=== PATIENT | male | born 1960 | race Two or more races ===

== ENCOUNTER 2025-05-13 18:01 | Inpatient (IN) | payer SELFPAY ==
[~2025-05-13] VITALS: Ht 170.2 cm; Wt 75.5 kg
[2025-05-13 18:57] VITALS: BP 153/96; PULSE 98; RESP 18; TEMP 97.8; O2SAT 98
[2025-05-13] MEDS: CLINDAMYCIN 900MG IV 50 ML IV ONE (19:00)
[2025-05-13] MEDS: VANCOMYCIN 1GM/250ML KIT 250 ML IV ONE (19:00)
[2025-05-13] MEDS: SODIUM CHLORIDE 0.9% 1,000 ML IV ONE ×2 (19:00→20:30)
[2025-05-13 19:26] LABS: Hematocrit 38.9 % (41.0-53.0); Hemoglobin 12.9 g/dL (13.5-17.5); Mean Corpuscular Hemoglobin 29.4 pg (28.0-32.0); Mean Corpuscular Volume 88.5 fL (80.0-100.0); Nucleated Red Blood Cells % 0.1 %
--- NOTE | 2025-05-13 19:40 | DVH ---
CHEST RADIOGRAPH Indication: Suspected Sepsis Technique: Single frontal view of the chest was obtained Comparison: None FINDINGS: Lines and Tubes: None Lungs: Linear atelectasis or scarring in the right mid lung field. Pleura: No effusion. No pneumothorax. Cardiomediastinal contours: Unremarkable Bones: No acute osseous abnormality. IMPRESSION: 1. No acute cardiopulmonary disease.
[2025-05-13 19:45] LABS: Alanine Aminotransferase 15 U/L (7-40); Anion Gap 14 (5-15); BUN/Creatinine Ratio 13.1 (10.0-20.0); Blood Urea Nitrogen 11 mg/dL (9-23); Carbon Dioxide 24 mmol/L (20-31); Potassium 3.7 mmol/L (3.5-5.1)
[2025-05-13 19:46] LABS: Albumin 3.8 g/dL (3.2-4.8); Bilirubin, Total 0.5 mg/dL (0.2-1.0)
[2025-05-13 19:48] LABS: Alkaline Phosphatase 158 U/L (46-116); Calcium 8.6 mg/dL (8.7-10.4); Chloride 96 mmol/L (98-107); Glucose 289 mg/dL (74-106); Sodium 134 mmol/L (136-145); Total Protein 8.2 g/dL (5.7-8.2)
--- NOTE | 2025-05-13 20:11 | DVH ---
EXAMINATION: CT CT L FOOT WO CONTRAST INDICATION: Foot infection, necrotizing fasciitis COMPARISON: None TECHNIQUE: CT of the rightleft foot was performed without contrast. Volume transverse images were obt ained reconstructed in multiple planes using bone and soft tissue algorithms. CTDIvol: 8 mGy. DLP: 174 mGy cm. FINDINGS: Significant soft tissue thickening along the dorsal midfoot and forefoot. No obvious fluid collectio n, evidence of soft tissue gas or edema along the deep aspect of intrinsic foot muscles. No visualize d ulcer. Dense vascular calcifications. No evidence of acute fracture , periostitis or osseous erosion. Joints appear normally aligned with m ild osteoarthrosis of the forefoot. IMPRESSION: Extensive dorsal soft tissue thickening throughout the midfoot and forefoot. No obvious fluid collect ion or deep space infection, although CT is neither sensitive nor specific.
--- NOTE | 2025-05-13 20:11 | DVH ---
Procedure: US LT Lower DVT Study Date and Requested Time: 05/13/2025 07:25 PM History: reddness, swelling Comparison: None Technique: Multiple high resolution lopez-scale images with and without compression obtained of the le ft lower extremity veins, including the common femoral vein, deep femoral vein, proximal mid and dist al superficial femoral vein, and popliteal vein. Additional limited images of the greater saphenous v ein also obtained. Augmentation performed as indicated. Color and spectral doppler flow images obtain ed as indicated. Findings: No visible intraluminal venous thrombus. No evidence of incompressibility or abnormal color or spectr al Doppler flow visualized in the left lower extremity veins including, the common femoral vein, deep femoral vein, proximal mid and distal superficial femoral vein, and popliteal vein. Greater saphenou s vein grossly unremarkable. Impression: No sonographic evidence of left lower extremity deep venous thrombosis.
--- NOTE | 2025-05-13 20:14 | DVH ---
BILATERAL LOWER EXTREMITY ARTERIAL DUPLEX ULTRASOUND STUDY: REASON FOR EXAM: r/o ischemia, PAD. Left lower extremity wound x1 week. TECHNIQUE: The full lengths of the arterial segments were evaluated with color-flow Doppler ultrasoun d. Suspected abnormalities were evaluated with lopez scale ultrasound. Terminal [employer] spectral Doppler waveforms, with velocity measurements were obtained. Spectral waveforms with velocity measurements w ere obtained 2 to 4 cm central to any areas of significant stenosis. Common femoral, superficial femo ral, popliteal, posterior tibial, anterior tibial, and dorsal pedal arteries were evaluated. FINDINGS: Right: There is diffuse atherosclerotic plaque throughout the right lower extremity. The common femor al artery waveform is multiphasic with a brisk upstroke. The superficial femoral and popliteal arteri es are patent with multiphasic waveforms. There is monophasic flow in the posterior tibial artery. Th ere is multi phasic flow in the anterior tibial and dorsal pedal arteries. Left: There is diffuse atherosclerotic plaque throughout the left lower extremity. The common femora l artery waveform is multiphasic with a brisk upstroke. The superficial femoral and popliteal arterie s are patent with multiphasic waveforms. There is monophasic flow in the posterior tibial, anterior t ibial, and dorsal pedal arteries. Incidental note is made of a 3.1 x 0.8 cm morphologically normal lymph node in the left groin, likely reactive. IMPRESSION: Diffuse atherosclerotic disease. No evidence of hemodynamically significant focal stenosis or occlusi on.
[2025-05-13] MEDS: PIPERACILLIN-TAZOB 3.375GM 100 ML IV ONE (20:55)
[2025-05-13] MEDS: MORPHINE SULFATE INJ 2 MG/ml SYRG IV ONE (21:06)
[2025-05-14] VITALS (11 sets, daily range): BP systolic 101–148; BP diastolic 62–80; PULSE 73–108; RESP 16–19; TEMP 97.9–100; O2SAT 92–97
[2025-05-14] MEDS ORDERED: DEXTROSE (50%) 50ML SYRG IV PRN (00:45)
[2025-05-14] MEDS: SODIUM CHLORIDE 0.9% 1,000 ML IV ONE (00:45)
[2025-05-14] MEDS ORDERED: VANCOMYCIN PER PHARMACY 0 MG IV SCH (00:45)
[2025-05-14] MEDS: LOSARTAN POTASSIUM 25 MG TAB PO ONE (00:45)
[2025-05-14] MEDS: VANCOMYCIN 1GM/250ML KIT 250 ML IV ONE ×2 (02:00→06:57)
[2025-05-14] MEDS: CEFEPIME 1GM/50ML 50 ML IV ONE (03:21)
[2025-05-14] MEDS: HYDROmorphone HCL 2 MG/ML VL/or syr IV PRN (03:46)
[2025-05-14] MEDS: CLINDAMYCIN 600MG IV 50 ML IV SCH (05:43)
[2025-05-14] MEDS: SODIUM CHLOR 0.9% PF (SALINE LOCK) 10ML VIAL/SYR IV SCH (05:45)
[2025-05-14] MEDS: ACCU-CHEK COMFORT CURVE STRIP VI SCH (05:46)
[2025-05-14] MEDS: InsuLIN REG 1unit/0.01ml Soln (100units/ml) SC SCH (05:53)
[2025-05-14] MEDS ORDERED: CEFEPIME 1GM/50ML 50 ML IV SCH (06:00)
[2025-05-14 06:07] LABS: Hematocrit 33.2 % (41.0-53.0); Hemoglobin 11.1 g/dL (13.5-17.5); Mean Corpuscular Hemoglobin 29.4 pg (28.0-32.0); Mean Corpuscular Volume 87.9 fL (80.0-100.0); Nucleated Red Blood Cells % 0.0 %
[2025-05-14 06:20] LABS: INR 1.18 (0.9-1.15); Partial Thromboplastin Time 34.9 SEC (24.5-34.5); Prothrombin Time 12.3 sec (9.3-11.8)
[2025-05-14 06:24] LABS: Alanine Aminotransferase 12 U/L (7-40); Alkaline Phosphatase 107 U/L (46-116); Anion Gap 11 (5-15); BUN/Creatinine Ratio 14.1 (10.0-20.0); Blood Urea Nitrogen 10 mg/dL (9-23); Carbon Dioxide 24 mmol/L (20-31); Chloride 102 mmol/L (98-107); Magnesium 2.1 mg/dL (1.6-2.6); Sodium 137 mmol/L (136-145); Total Protein 7.0 g/dL (5.7-8.2)
[2025-05-14 06:25] LABS: Albumin 3.2 g/dL (3.2-4.8); Bilirubin, Direct 0.2 mg/dL (<0.3); Bilirubin, Total 0.5 mg/dL (0.2-1.0)
[2025-05-14 06:26] LABS: Calcium 7.8 mg/dL (8.7-10.4); Glucose 301 mg/dL (74-106); Potassium 3.4 mmol/L (3.5-5.1)
[2025-05-14] MEDS: POTASSIUM EFFERVESENT TAB 25 MEQ PO ONE (09:48)
[2025-05-14] MEDS: CEFEPIME 1GM/50ML 50 ML IV SCH (09:49)
[2025-05-14] MEDS: ENOXAPARIN SOD 40 MG/0.4 ML SYRINGE SC SCH (09:50)
[2025-05-14] MEDS: LOSARTAN POTASSIUM 25 MG TAB PO SCH (09:51)
[2025-05-14] MEDS: INSULIN LANTUS (GLARGINE) 1 /0.01ml (100units/ml) SC SCH (10:05)
--- NOTE | 2025-05-14 10:12 | DVH ---
CLINICAL INDICATION: r/o foot osteomyelitis COMPARISON: CT CT L FOOT WO CONTRAST on DOS: 05/13/25. TECHNIQUE: Multiplanar, multisequence MRI of the left foot was performed without intravenous contrast . Contrast: None. INTERPRETATION: Bones: No evidence of acute fracture. There is no marrow replacing lesion. Joints: There is mild 1st MTP arthrosis. Mild midfoot arthrosis noted. No significant joint effusion s. Soft tissues: There is marked subcutaneous edema in the dorsal forefoot especially in 1st and 2nd web space, where there appears to be fluid in these locations. There is edema in the intrinsic muscles of the foot which may reflect myositis or denervation. IMPRESSION: 1. Diffuse soft tissue edema in the forefoot especially in between the 1st and 2nd webspace where the re is fluid. Findings are concerning for cellulitis with the presence of abscess not excluded. 2. No MR evidence of osteomyelitis in the left foot.
--- NOTE | 2025-05-14 11:24 | ED.PDOC ---
Musculoskeletal HPI Comments 64 year old male came to ER for left lower extremity wound. Patient is diabetic and has not been taking any medications (metformin) for over 2 years. 9 days ago, he noted a reddish spot on the surface of his left foot, progressively worsening/ enlarging. 3 days ago, blackish spots started to appear along with weaong wounds. Denies any fever or recent trauma to the left foot. REVIEW OF SYSTEMS: General: No fever, no chills, or fatigue HEENT: No sore throat, no earache, no congestion, no neck pain. Cardiac: No chest pain. No palpitations. Lungs: No shortness of breath, no cough. GI: No nausea, no vomiting, no diarrhea, no constipation, no abdominal pain : No dysuria, frequency, or urgency. No hematuria. Musculoskeletal: No joint pain , no joint swelling, no extremity edema. Skin: No rash, no itching., wound left foot Neuro: No headache, no dizziness, no weakness EXAM: General: Awake, alert and oriented. No acute distress. Skin: Skin in warm, dry and intact. Appropriate color for ethnicity. HEENT: The head is normocephalic and atraumatic. Conjunctivae are clear without exudates or hemorrhage. Sclera is non-icteric. EOM are intact. No signs of nystagmus. Eyelids are normal in appearance without swelling or lesions. Oral mucosa is pink and moist Neck: The neck is supple with normal range of motion. No JVD. Cardiac: Heart rate and rhythm are normal. No murmurs, gallops, or rubs are auscultated. Respiratory: No signs of respiratory distress. Lung sounds are clear in all lobes bilaterally without rales, rhonchi, or wheezes. Abdominal: Abdomen is soft, non-tender without distention. Bowel sounds are present and normoactive in all four quadrants. Extremities: LEFT FOOT ERYTHEMATOUS, EDEMATOUS WITH PURULENT DRAINAGE AND LARGE AREAS OF NECROSIS. SENSATION INTACT. Neurological: The patient is awake, alert and oriented to person, place, and time with normal speech. Speech is clear. There is no facial asymmetry. Psychiatric: Appropriate mood and affect. Good judgement and insight Chief Complaint: Lower Extremity Time Seen by MD: 18:54 Reviewed Notes: Nurses Notes Allergies: Coded Allergies: NO KNOWN ALLERGIES (Unverified , 05/13/25) Home Meds Active Scripts Doxycycline (Monohydrate) (Doxycycline) 100 Mg Cap, 100 MG PO BID for 90 Days, #90 CAP Prov:RAFAEL ARANDA RESIDENT 05/23/25 Tramadol HCl (Tramadol HCl) 50 Mg Tab, 50 MG PO Q8HP PRN for 10 Days, #30 TAB Prov:KATHRIN BOLDEN MD 05/23/25 Metformin Hydrochloride (METFORMIN HCL ER) 1,000 Mg Tab, 1 TAB PO BID for 30 Days, #60 TAB 2 Refills Prov:GAILDUSTY FORDRA RESIDENT 05/21/25 Insulin Glargine (Lantus Solostar) 100 Unit/Ml Inj, 20 UNIT SC DAILY for 30 Days, #6 INJ 2 Refills Please take 20 units Lantus at bedtime Prov:GAILMINDYJANIDIEGO RESIDENT 05/21/25 Losartan Potassium (Losartan Potassium) 25 Mg Tab, 1 TAB PO DAILY for 30 Days, #30 TAB 2 Refills Prov[facility] 05/21/25 Atorvastatin Calcium (ATORVASTATIN CALCIUM) 80 Mg Tab, 1 TAB PO DAILY for 30 Days, #30 TAB 2 Refills Prov:[facility] 05/21/25 Information Source: Patient Mode of Arrival: Ambulatory Location: Left Extremity Location: Foot Timing: Days Past Medical History PAST MEDICAL HISTORY: DM Surgical History: Denies all surgeries Family History Family History: Reviewed,noncontributory to illness Social History Smoker: Non-Smoker Alcohol: Denies ETOH Use Drugs: Denies Drug Use Lives In: Home Was a procedure done? Was a procedure done?: No Differential Diagnosis EXT Differential Diagnosis: Cellulitis, Deep Vein Thrombosis, Septic X-Ray, Labs, Meds, VS Vital Signs Date Time Temp Pulse Resp B/P (MAP) Pulse Ox O2 Delivery O2 Flow Rate FiO2 05/13/25 21:06 95 19 148/82 05/13/25 18:57 97.8 98 18 153/96 (115) 98 97.8 05/13/25 18:05 99.7 109 18 144/63 96 99.7 Lab Test 05/13/25 19:59 05/13/25 19:11 Range/Units Lactic Acid Level 1.9 0.4-2.0 mmol/L White Blood Count 12.0 H 4.4-10.8 10^3/uL Red Blood Count 4.39 L 4.5-5.90 10^6/uL Hemoglobin 12.9 L 13.5-17.5 g/dL Hematocrit 38.9 L 41.0-53.0 % Mean Corpuscular Volume 88.5 80.0-100.0 fL Mean Corpuscular Hemoglobin 29.4 28.0-32.0 pg Mean Corpuscular Hemoglobin Concent 33.3 32.0-36.0 g/dL Red Cell Distribution Width 13.8 11.8-14.3 % Platelet Count 409 140-450 10^3/uL Mean Platelet Volume 8.6 6.9-10.8 fL Neutrophils (%) (Auto) 76.2 37.0-80.0 % Lymphocytes (%) (Auto) 14.5 10.0-50.0 % Monocytes (%) (Auto) 8.2 0.0-12.0 % Eosinophils (%) (Auto) 0.4 0.0-7.0 % Basophils (%) (Auto) 0.7 0.0-2.0 % Neutrophils # (Auto) 9.1 H 1.6-8.6 10 ^3/uL Lymphocytes # (Auto) 1.7 0.4-5.4 10 ^3/uL Monocytes # (Auto) 1.0 0-1.3 10 ^3/uL Eosinophils # (Auto) 0.1 0-0.8 10 ^3/uL Basophils # (Auto) 0.1 0-0.2 10 ^3/uL Nucleated Red Blood Cells 0.1 % Sodium Level 134 L 136-145 mmol/L Potassium Level 3.7 3.5-5.1 mmol/L Chloride Level 96 L 98-107 mmol/L Carbon Dioxide Level 24 20-31 mmol/L Anion Gap 14 5-15 Blood Urea Nitrogen 11 9-23 mg/dL Creatinine 0.84 0.700-1.30 mg/dL Glomerular Filtration Rate Calc 98 >90 mL/min BUN/Creatinine Ratio 13.1 10.0-20.0 Serum Glucose 289 H 74-106 mg/dL Calcium Level 8.6 L 8.7-10.4 mg/dL Total Bilirubin 0.5 0.2-1.0 mg/dL Aspartate Amino Transferase (AST) 15 13-40 U/L Alanine Aminotransferase (ALT) 15 7-40 U/L Alkaline Phosphatase 158 H 46-116 U/L Total Protein 8.2 5.7-8.2 g/dL Albumin 3.8 3.2-4.8 g/dL Microbiology Date/Time Source Procedure Growth Status 05/13/25 19:59 Blood Blood Culture - Final NO GROWTH AFTER 5 DAYS OF INCUBATION. Complete 05/13/25 19:11 Blood Blood Culture - Final NO GROWTH AFTER 5 DAYS OF INCUBATION. Complete ORDERING PHYSICIAN: JAKE ARTIS MD PROCEDURE(s): LFTCT - CT L FOOT WO CONTRAST REASON: Foot infection, ? necrotizing fasciitis ORDER NUMBER(s): [id number], ACCESSION NUMBER(s): [id number] EXAMINATION: CT CT L FOOT WO CONTRAST INDICATION: Foot infection, necrotizing fasciitis COMPARISON: None TECHNIQUE: CT of the rightleft foot was performed without contrast. Volume transverse images were obtained reconstructed in multiple planes using bone and soft tissue algorithms. CTDIvol: 8 mGy. DLP: 174 mGy cm. FINDINGS: Significant soft tissue thickening along the dorsal midfoot and forefoot. No obvious fluid collection, evidence of soft tissue gas or edema along the deep aspect of intrinsic foot muscles. No visualized ulcer. Dense vascular calcifications. No evidence of acute fracture , periostitis or osseous erosion. Joints appear normally aligned with mild osteoarthrosis of the forefoot. IMPRESSION: Extensive dorsal soft tissue thickening throughout the midfoot and forefoot. No obvious fluid collection or deep space infection, although CT is neither sensitive nor specific. RING PHYSICIAN: JAKE ARTIS MD PROCEDURE(s): LLDVT - LT Lower DVT REASON: reddness, swelling ORDER NUMBER(s): [id number], ACCESSION NUMBER(s): [id number] Procedure: US LT Lower DVT Study Date and Requested Time: 05/13/2025 07:25 PM History: reddness, swelling Comparison: None Technique: Multiple high resolution lopez-scale images with and without compression obtained of the left lower extremity veins, including the common femoral vein, deep femoral vein, proximal mid and distal superficial femoral vein, and popliteal vein. Additional limited images of the greater saphenous vein also obtained. Augmentation performed as indicated. Color and spectral doppler flow images obtained as indicated. Findings: No visible intraluminal venous thrombus. No evidence of incompressibility or abnormal color or spectral Doppler flow visualized in the left lower extremity veins including, the common femoral vein, deep femoral vein, proximal mid and distal superficial femoral vein, and popliteal vein. Greater saphenous vein grossly unremarkable. Impression: No sonographic evidence of left lower extremity deep venous thrombosis. RING PHYSICIAN: JAEK ARTIS MD PROCEDURE(s): BLEAD - BiLat Low Ext Art Duplex REASON: r/o ischemia, PAD ORDER NUMBER(s): [id number], ACCESSION NUMBER(s): [id number] BILATERAL LOWER EXTREMITY ARTERIAL DUPLEX ULTRASOUND STUDY: REASON FOR EXAM: r/o ischemia, PAD. Left lower extremity wound x1 week. TECHNIQUE: The full lengths of the arterial segments were evaluated with color- flow Doppler ultrasound. Suspected abnormalities were evaluated with lopez scale ultrasound. Supervisor [employer] spectral Doppler waveforms, with velocity measurements were obtained. Spectral waveforms with velocity measurements were obtained 2 to 4 cm central to any areas of significant stenosis. Common femoral, superficial femoral, popliteal, posterior tibial, anterior tibial, and dorsal pedal arteries were evaluated. FINDINGS: Right: There is diffuse atherosclerotic plaque throughout the right lower extremity. The common femoral artery waveform is multiphasic with a brisk upstroke. The superficial femoral and popliteal arteries are patent with multiphasic waveforms. There is monophasic flow in the posterior tibial artery. There is multi phasic flow in the anterior tibial and dorsal pedal arteries. Left: There is diffuse atherosclerotic plaque throughout the left lower extremity. The common femoral artery waveform is multiphasic with a brisk upstroke. The superficial femoral and popliteal arteries are patent with multiphasic waveforms. There is monophasic flow in the posterior tibial, anterior tibial, and dorsal pedal arteries. Incidental note is made of a 3.1 x 0.8 cm morphologically normal lymph node in the left groin, likely reactive. IMPRESSION: Diffuse atherosclerotic disease. No evidence of hemodynamically significant focal stenosis or occlusion. RING PHYSICIAN: JAKE ARTIS MD PROCEDURE(s): CXR1 - CHEST XRAY 1 VIEW REASON: Suspected Sepsis ORDER NUMBER(s): [id number], ACCESSION NUMBER(s): [id number] CHEST RADIOGRAPH Indication: Suspected Sepsis Technique: Single frontal view of the chest was obtained Comparison: None FINDINGS: Lines and Tubes: None Lungs: Linear atelectasis or scarring in the right mid lung field. Pleura: No effusion. No pneumothorax. Cardiomediastinal contours: Unremarkable Bones: No acute osseous abnormality. IMPRESSION: 1. No acute cardiopulmonary disease. Time of 1ST Reevaluation: 18:50 Reevaluation 1ST: Unchanged Patient Education/Counseling: Other Family Education/Counseling: Other Sepsis Sepsis Reasesment Focused Exam Orders: Departure 1 Departure Time of Disposition: 22:01 Impression: Primary Impression: Diabetic foot infection Disposition: ADMITTED INPATIENT Condition: Stable e-Prescriptions Doxycycline (Monohydrate) (Doxycycline) 100 Mg Cap 100 MG PO BID for 90 Days, #90 CAP Prov: RAFAEL ARANDA 05/23/25 Tramadol HCl (Tramadol HCl) 50 Mg Tab 50 MG PO Q8HP PRN for 10 Days, #30 TAB Prov: KATHRIN BOLDEN MD 05/23/25 Metformin Hydrochloride (METFORMIN HCL ER) 1,000 Mg Tab 1 TAB PO BID for 30 Days, #60 TAB 2 Refills Prov: DIEGO JONES RESIDENT 05/21/25 Insulin Glargine (Lantus Solostar) 100 Unit/Ml Inj 20 UNIT SC DAILY for 30 Days, #6 INJ 2 Refills Please take 20 units Lantus at bedtime Prov: DIEGO JONES 05/21/25 Losartan Potassium (Losartan Potassium) 25 Mg Tab 1 TAB PO DAILY for 30 Days, #30 TAB 2 Refills Prov: DIEGO JONES 05/21/25 Atorvastatin Calcium (ATORVASTATIN CALCIUM) 80 Mg Tab 1 TAB PO DAILY for 30 Days, #30 TAB 2 Refills Prov: DIEGO JONES RESIDENT 05/21/25 Comments MDM: Antibiotics initiated in the ED. Patient admitted to hospitalist service for further treatment, evaluation and monitoring. Extensive evaluation was performed in attempt to identify or rule out: (See differential diagnosis section) The following tests were ordered, and results were reviewed by me and discussed with patient: (See diagnostic results section) The following test were independently interpreted by me: N/A I reviewed and agreed with the following test results read by other providers: N/A I reviewed the following notes from the pt's past medical encounters: N/A Additional information was gathered from interviewing the following independent historians: N/A Discussion of management or test interpretation with external physician/other qualified health inpatient care manager rn: N/A Addressed one or more chronic illnesses with severe exacerbation, progression, or side effects of treatment: Diabetes mellitus, an acute or chronic illness that poses a threat to life or bodily function: Diabetic foot infection Decision regarding hospitalization or escalation of hospital level of care: Risk and benefits of admission for further treatment of patient's condition was considered. Due to patient's current clinical condition, high risk of decline and poor outcome if discharged and need for further inpatient management and monitoring, patient will be admitted to the hospital. Drug therapy requiring intensive monitoring for toxicity: N/A Parenteral controlled substances: Morphine IV Critical Care Note Critical Care Time?: No Stability Stability form required: No I personally scribed for JAKE ARTIS MD ([email or web address]) on 05/13/25 at 18:55. Electronically submitted by Steven Velásquez ([email or web address]). I personally scribed for JAKE ARTIS MD ([email or web address]) on 05/13/25 at 22:05. Electronically submitted by Steven Velásquez (ARABlueprint [email or web address] [email or web address]). JAKE ARTIS MD May 13, 2025 18:55
--- NOTE | 2025-05-14 11:29 | DVHHPRES ---
History of Present Illness Resident Creating Document: JAIMEE BAER History of Present Illness Patient is a 64-year-old male with past medical history of T2DM, presented to [facility] ED with complaint of progressively worsening wound on the left foot. He first noticed a reddish spot on the dorsal surface of the left foot approximately 9 days ago. The lesion has more enlarged and painful, 3 days ago, developed blackish discoloration with associated weeping wounds. 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 He has also not taken any medications for an extended period. He denies fever, chills, or recent trauma to the area. No known insect bites or new footwear. No prior similar episodes. On evaluation in the ED, patient is febrile, tachycardic, and BP is148/82 mmHg. Initial labs show WBC 12.0, serum glucose 289 and ALP 158. Left foot CT shows Extensive dorsal soft tissue thickening throughout the midfoot and forefoot. The patient was started on IV antibiotics and Insulin. Patient is admitted for further evaluation and management. Endocrine: Diabetes Past Surgical History: None Family History: DM Smoke: No ALCOHOL: occassional Drugs: None Lives: with Family Review of Systems Review of Systems Eyes: No Pain, No Vision change, No Conjunctivae inflammation, No Eyelid inflammation, No Other, No Redness ENT: No Ear pain, No Ear discharge, No Nose pain, No Nose discharge, No Nose congestion, No Mouth pain, No Mouth swelling, No Throat pain, No Throat swelling, No Other Cardiovascular: No Chest Pain, No Palpitations, No Orthopnea, No Paroxysmal No Dyspnea, No Edema, No Lt Headedness, No Other Respiratory: No Cough, No Dry, No Shortness of breath, No SOB with exertion, No Wheezing, No Hemoptysis, No Pleuritic Pain, No Sputum, No Other Gastrointestinal: No Nausea, No Vomiting, No Abdominal Pain, No Diarrhea, No C onstipation, No Melena, No Hematochezia, No Other Genitourinary: No Dysuria, No Frequency, No Incontinence, No Hematuria, No Re tention, No Other Musculoskeletal: No other, No neck pain, No shoulder pain, No arm pain, No back pain, No hand pain, No leg pain, No foot pain Skin: No Rash, No Lesions, No Jaundice, No Bruising, No Other. Reddish spot in right foot, wound in left foot Allergies: Coded Allergies: NO KNOWN ALLERGIES (Unverified , 05/13/25) Exam Vital Signs Vital Signs Date Time Temp Pulse Resp B/P (MAP) Pulse Ox O2 Delivery O2 Flow Rate FiO2 05/13/25 21:06 95 19 148/82 05/13/25 18:05 99.7 96 99.7 Exam General Appearance: Cooperative. Well developed. Well nourished. NAD Head Exam: Normal inspection Neck Exam: Normal inspection. Non-tender. Normal alignment Pulmonary/Respiratory: Chest non-tender. Clear bilateral breath sounds, no crackles, no wheezing. Cardiovascular/Chest: Regular rate and rhythm. No murmurs. No JVD. Peripheral Pulses: 2+ Radial (R). 2+ Radial (L). 2+ Pedal (R). 2+ Pedal (L) Abdominal Exam: Normal bowel sounds. Soft. normal abdomen, no visible veins, Nontender. No hepatospenomegaly. No masses Ankle Exam: Negative ankle edema Lower extremities: Left foot erythematous, edematous with purulent drainage and large area of necrosis. sensation intact Neuro/Mental Status: A&O x4. Coherent. Thoughts/Psych: Normal thought pattern. Appropriate mood and affect. Good judgement and insight Skin Exam: Normal inspection. Normal color. Warm. Dry Labs/Xrays Labs Test 05/13/25 19:59 05/13/25 19:11 Range/Units Lactic Acid Level 1.9 0.4-2.0 mmol/L White Blood Count 12.0 H 4.4-10.8 10^3/uL Red Blood Count 4.39 L 4.5-5.90 10^6/uL Hemoglobin 12.9 L 13.5-17.5 g/dL Hematocrit 38.9 L 41.0-53.0 % Mean Corpuscular Volume 88.5 80.0-100.0 fL Mean Corpuscular Hemoglobin 29.4 28.0-32.0 pg Mean Corpuscular Hemoglobin Concent 33.3 32.0-36.0 g/dL Red Cell Distribution Width 13.8 11.8-14.3 % Platelet Count 409 140-450 10^3/uL Mean Platelet Volume 8.6 6.9-10.8 fL Neutrophils (%) (Auto) 76.2 37.0-80.0 % Lymphocytes (%) (Auto) 14.5 10.0-50.0 % Monocytes (%) (Auto) 8.2 0.0-12.0 % Eosinophils (%) (Auto) 0.4 0.0-7.0 % Basophils (%) (Auto) 0.7 0.0-2.0 % Neutrophils # (Auto) 9.1 H 1.6-8.6 10 ^3/uL Lymphocytes # (Auto) 1.7 0.4-5.4 10 ^3/uL Monocytes # (Auto) 1.0 0-1.3 10 ^3/uL Eosinophils # (Auto) 0.1 0-0.8 10 ^3/uL Basophils # (Auto) 0.1 0-0.2 10 ^3/uL Nucleated Red Blood Cells 0.1 % Sodium Level 134 L 136-145 mmol/L Potassium Level 3.7 3.5-5.1 mmol/L Chloride Level 96 L 98-107 mmol/L Carbon Dioxide Level 24 20-31 mmol/L Anion Gap 14 5-15 Blood Urea Nitrogen 11 9-23 mg/dL Creatinine 0.84 0.700-1.30 mg/dL Glomerular Filtration Rate Calc 98 >90 mL/min BUN/Creatinine Ratio 13.1 10.0-20.0 Serum Glucose 289 H 74-106 mg/dL Calcium Level 8.6 L 8.7-10.4 mg/dL Total Bilirubin 0.5 0.2-1.0 mg/dL Aspartate Amino Transferase (AST) 15 13-40 U/L Alanine Aminotransferase (ALT) 15 7-40 U/L Alkaline Phosphatase 158 H 46-116 U/L Total Protein 8.2 5.7-8.2 g/dL Albumin 3.8 3.2-4.8 g/dL SEPSIS Sepsis Screen Date sepsis recognized/suspect: May 13, 2025 Time Sepsis recognized/suspect: 1806 Recent Procedure: No On Antibiotic Therapy: No Respiratory Rate >20: No Heart Rate >90: Yes Temp<36 C (96.8 F) or >38.3 C: Yes SBP <90 or MAP <65 mmHG: No New Acute Mental Status Change: No Is the patient on CPAP, BIPAP,: No Physician Orders Ct L Foot Wo Contrast (05/13/25 18:48) Sodium Chloride 0.9% (05/13/25 19:00) Vital Signs Q1HR (05/13/25 18:48) Saline Lock (05/13/25 18:48) Underwriting Specialist (05/13/25 ) Rectal/Core Temps Only (05/13/25 18:48) Notify Md If Abnormal Vs (05/13/25 18:48) Blood Culture (05/13/25 18:48) Chest Xray 1 View (05/13/25 18:48) Urinalysis (05/13/25 18:48) Lt Lower Dvt (05/13/25 18:48) Bilat Low Ext Art Duplex (05/13/25 18:48) Vital Signs Date Time Temp Pulse Resp B/P (MAP) Pulse Ox O2 Delivery O2 Flow Rate FiO2 05/13/25 21:06 95 19 148/82 05/13/25 18:05 99.7 109 18 144/63 96 99.7 Laboratory Tests Test 05/13/25 19:11 05/13/25 19:59 White Blood Count 12.0 10^3/uL (4.4-10.8) H Lactic Acid Level 1.9 mmol/L (0.4-2.0) Medications Medications Dose Ordered Sig/Freder[place] Route Start Time Stop Time Status Last Admin Dose Admin Morphine Sulfate 2 mg ONCE ONCE IV 05/13/25 21:00 05/13/25 21:01 DC 05/13/25 21:06 2 MG Piperacillin Sod/ Tazobactam Sod 100 ml @ 100 mls/hr ONCE ONCE IV 05/13/25 19:00 05/13/25 19:59 DC 05/13/25 20:55 100 MLS/HR Sodium Chloride 1,000 ml @ 1,000 mls/hr Q1H ONCE IV 05/13/25 19:00 05/13/25 19:59 DC 05/13/25 20:30 1,000 MLS/HR Assessment/Plan Assessment/Plan Sepsis secondary to diabetic foot wound Type 2 diabetes mellitus with hyperglycemia, uncontrolled Rule out osteomyelitis MRI left foot ordered CT left foot : Extensive dorsal soft tissue thickening throughout the midfoot and forefoot. No obvious fluid collection or deep space infection. Wound culture Wound consult Podiatry consult IV NS 1,000 MLS/HR Vancomycin IV per pharmacy Cefepime 1GM/50ML IV q8h Clindamycin IV q8h pain management with [place] 1 TAB PO q4h and Dilaudid 0.5 MG IV q4h prn Moderate Insulin SS SC q6h UA and UDS Lactic acid Magnesium Hepatic panel ESR CRP Hypertension Losartan 25 MG PO daily Ruled out DVT Extremity venous sturdy: No sonographic evidence of left lower extremity deep venous thrombosis. Duplex Scan lower extremity artery: Diffuse atherosclerotic disease. No evidence of hemodynamically significant focal stenosis or occlusion. Diet: Cardiac Goals of care: Full code, discussed for >30 minutes on 05/13/25 Plan discussed with patient Plan discussed with Dr. Steen Plan discussed with: Patient, Spouse Date of Service: May 14, 2025 Billing Provider: VIDAL STEEN Common Visit Codes: [id number] INP/OBS CARE (HIGH) Secondary Visit Codes: [id number] CARE PLAN 30 MINUTES JAIMEE BAER RESIDENT May 13, 2025 23:46
--- NOTE | 2025-05-14 11:43 | DVHPNRES ---
Progress Note Date Seen: May 14, 2025 Resident Creating Document: RUBY EDWARD RESIDENT Has the PT tested + for MRSA If YES, has PT been informed?: No Medical Necessity Reason Pt with a Central, PICC or Fol: No Subjective Review of Systems Mr. Steve Canas, is a 64-year-old male, with past medical history of recently diagnosed HTN and DM type 2. The patient presented to [facility] ED with a chief complaint of 9 days of progressively worsening wound localized on the dorsum of left foot, associated with 10/10 burning/stabbing like pain, that irradiates up toward the left leg that worsen with walking and does not has alleviating factors. The left foot wound is associated with edema, yellowish foul smell discharge, erythema and warmth that extends to up to the middle part of the left leg. The patient reports 3 days prior the visit to the ED he start noticing a black eschar over the wound, and he had subjective fever, chills and malaise, this prompted his visit to the ED. On further questioning the patient reports he was newly diagnosed with DM2 and he is not taking any medication. 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 He denies recent trauma to the area, insect bites or new footwear. No prior similar episodes. On evaluation in the ED, patient is febrile, tachycardic, and BP is148/82 mmHg. Initial labs show WBC 12.0, serum glucose 289 and ALP 158. Left foot CT shows Extensive dorsal soft tissue thickening throughout the midfoot and forefoot. The patient was started on IV antibiotics and Insulin. Patient was admitted for further evaluation and management. Endocrine: Diabetes Past Surgical History: None Family History: DM Smoke: No ALCOHOL: occasional Drugs: None Lives: with [facility] course: On 05/14/25 the patient was evaluated and examined at bedside. The VS, labs and chart was reviewed. The patient reports he has chills, his left foot patient is better after analgesia 7/10. Bilateral artery studies showed: Diffuse atherosclerotic disease. No evidence of hemodynamically significant focal stenosis or occlusion. Bilateral leg doppler is negative for DVT. CT of the left leg showed: Extensive dorsal soft tissue thickening throughout the midfoot and forefoot. No obvious fluid collection or deep space infection, although CT is neither sensitive nor specific. MRI of the left foot showed:Diffuse soft tissue edema in the forefoot especially in between the 1st and 2nd webspace where there is fluid. Findings are concerning for cellulitis with the presence of abscess not excluded. No MR evidence of osteomyelitis in the left foot. Wound and blood cultures were ordered. The patient is receiving IV antibiotics: ceftriaxone and vancomycin. Podiatry and wound consult were placed. We will continue following this patient's progress. Review of Systems General: fever, chills, malaise. Eyes: No Pain, No Vision change, No Conjunctivae inflammation, No Eyelid inflammation, No Other, No Redness ENT: No Ear pain, No Ear discharge, No Nose pain, No Nose discharge, No Nose congestion, No Mouth pain, No Mouth swelling, No Throat pain, No Throat swelling, No Other Cardiovascular: No Chest Pain, No Palpitations, No Orthopnea, No Paroxysmal No Dyspnea, No Edema, No Lt Headedness, No Other Respiratory: No Cough, No Dry, No Shortness of breath, No SOB with exertion, No Wheezing, No Hemoptysis, No Pleuritic Pain, No Sputum, No Other Gastrointestinal: No Nausea, No Vomiting, No Abdominal Pain, No Diarrhea, No Constipation, No Melena, No Hematochezia, No Other Genitourinary: No Dysuria, No Frequency, No Incontinence, No Hematuria, No Retention, No Other Musculoskeletal: No other, No neck pain, No shoulder pain, No arm pain, No back pain, No hand pain, No leg pain, No foot pain Skin: No Rash, No Lesions, No Jaundice, No Bruising, No Other. Wound on the left foot dorsum. Coded Allergies: NO KNOWN ALLERGIES (Unverified , 05/13/25) Objective vital signs Vital Sign Date Time Temp Pulse Resp B/P (MAP) Pulse Ox O2 Delivery O2 Flow Rate FiO2 05/14/25 05:00 97.9 83 19 116/80 (92) 92 97.9 05/14/25 02:40 Room Air* 0 21 Total Intake and Output 05/13/25 05/13/25 05/14/25 15:00 23:00 07:00 Intake Total 300 ml Balance 300 ml medications Current Medications Medications Dose Ordered Sig/Frederick Route Start Time Stop Time Status Last Admin Dose Admin Sodium Chloride 10 ml Q8HR IV 05/14/25 06:00 05/14/25 05:45 10 ML Acetaminophen/ Hydrocodone Bitart 1 tab Q4HP PRN PO 05/14/25 00:45 Enoxaparin Sodium 40 mg DAILY SC 05/14/25 10:00 Vancomycin HCl 0 ml @ 0 mls/hr PER PHARMACY IV 05/14/25 00:45 Losartan Potassium 25 mg DAILY PO 05/14/25 10:00 Hydromorphone HCl 0.5 mg Q4HPRN PRN IV 05/14/25 00:45 05/14/25 03:46 0.5 MG Diagnostic Test (Pha) 1 strip Q6HR 05/14/25 06:00 05/14/25 05:46 1 STRIP Insulin Human Regular Q6HR SC 05/14/25 06:00 05/14/25 05:53 12 UNITS Dextrose 50 ml UD PRN IV 05/14/25 00:45 Cefepime HCl 50 ml @ 12.5 mls/hr Q8H IV 05/14/25 10:00 Insulin Glargine 15 units DAILY@1000 SC 05/14/25 10:00 Atorvastatin Calcium 80 mg HS PO 05/14/25 22:00 Vancomycin HCl 250 ml @ 200 mls/hr Q12H IV 05/14/25 17:00 Examination General Appearance: Cooperative. Well developed. Well nourished. NAD Head Exam: Normal inspection Neck Exam: Normal inspection. Non-tender. Normal alignment Pulmonary/Respiratory: Chest non-tender. Clear bilateral breath sounds, no crackles, no wheezing. Cardiovascular/Chest: Regular rate and rhythm. No murmurs. No JVD. Peripheral Pulses: 2+ Radial (R). 2+ Radial (L). 2+ Pedal (R). 2+ Pedal (L) Abdominal Exam: Normal bowel sounds. Soft. normal abdomen, no visible veins, Nontender. No hepatospenomegaly. No masses Ankle Exam: Negative ankle edema Lower extremities: Left foot: has erythema, edema, with purulent yellowish drainage and large black area of necrosis. Sensation preserved, popliteal and malleolus pulses are present, capillary refill<2 sec Right lower extremity: ankle petechiae, No edema or erythema. Neuro/Mental Status: A&O x3. Coherent. Thoughts/Psych: Normal thought pattern. Appropriate mood and affect. Skin Exam: as described above. laboratory and microbiology Laboratory Tests 10/31/25 05:24 Test 05/14/25 05:24 Range/Units Serum Glucose 301 H 74-106 mg/dL Problem List/Assessment/Plan Problem List/Assessment/Plan #Sepsis secondary to acute diabetic left foot acute cellulitis #Osteomyelitis was ruled out MRI left foot ordered: Diffuse soft tissue edema in the forefoot especially in between the 1st and 2nd webspace where there is fluid. Findings are concerning for cellulitis with the presence of abscess not excluded. No MR evidence of osteomyelitis in the left foot. CT left foot : Extensive dorsal soft tissue thickening throughout the midfoot and forefoot. No obvious fluid collection or deep space infection. Wound culture Wound consult Podiatry consult IV NS 1,000 MLS/HR Vancomycin IV per pharmacy Cefepime 1GM/50ML IV q8h D/C Clindamycin IV q8h pain management with [place] 1 TAB PO q4h and Dilaudid 0.5 MG IV q4h prn Moderate Insulin SS SC q6h UA and UDS Lactic acid Magnesium Hepatic panel ESR CRP #Type 2 diabetes mellitus with hyperglycemia, uncontrolled HbA1: 12.4% Moderate Insulin SS SC q6h #Hypertensive heart disease with systolic/diastolic failure Losartan 25 MG PO daily #Ruled out DVT Extremity venous sturdy: No sonographic evidence of left lower extremity deep venous thrombosis. Duplex Scan lower extremity artery: Diffuse atherosclerotic disease. No evidence of hemodynamically significant focal stenosis or occlusion. #Hypokalemia K: 3.4 Replenish DVT prophylaxis Diet: Cardiac diet and low carbohydrate diet Goals of care discussed with the patient for more than 35 minutes: Code Status: Full code PCP: No established, the patient will follow up with D/C clinic Case discussed with Dr. Palacios Social consult was placed today to try to contact patient's family. Plan discussed with: Patient My Orders My Orders Orders - RUBY EDWARD Procedure Category Date Status Time Atorvastatin (Lipitor) PHA 05/14/25 In Process 22:00 Wound Culture W/ Gs JESUSITA 05/14/25 Logged 08:35 Date of Service: May 14, 2025 Billing Provider: YOBANY PALACIOS MD Common Visit Codes: [id number] INP/OBS CARE(HIGH) RUBY EDWARD May 14, 2025 10:22 YOBANY PALACIOS MD May 14, 2025 22:12
--- NOTE | 2025-05-14 11:55 | DVHCONRES ---
Date Seen: May 14, 2025 Reason for Consultation Left foot wound History of Present Illness Patient is a 64-year-old male with past medical history of T2DM, presented to [facility] ED with complaint of progressively worsening wound on the left foot. He first noticed a reddish spot on the dorsal surface of the left foot approximately 9 days ago. The lesion has more enlarged and painful, 3 days ago, developed blackish discoloration with associated weeping wounds. 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 He has also not taken any medications for an extended period. He denies fever, chills, or recent trauma to the area. No known insect bites or new footwear. No prior similar episodes. On evaluation in the ED, patient is febrile, tachycardic, and BP is148/82 mmHg. Initial labs show WBC 12.0, serum glucose 289 and ALP 158. Left foot CT shows Extensive dorsal soft tissue thickening throughout the midfoot and forefoot. The patient was started on IV antibiotics and Insulin. Patient is admitted for further evaluation and management. Past Medical History see H&P Past Surgical History see H&P Family History: Diabetes mellitus G8 MOTHER G8 FATHER G8 BROTHER G8 SISTER Allergies: Coded Allergies: NO KNOWN ALLERGIES (Unverified , 05/13/25) Home Meds No Active Prescriptions or Reported Meds Current Medications Current Medications Medications (Trade) Dose Ordered Sig/Freder[place] Route PRN Reason Start Time Stop Time Status Last Admin Sodium Chloride (Saline Lock Ns) 10 ml Q8HR IV 05/14/25 06:00 05/14/25 05:45 Acetaminophen/ Hydrocodone Bitart ([place] 5/325MG Tab) 1 tab Q4HP PRN PO MODERATE PAIN (4-6 PAIN SCALE) 05/14/25 00:45 Enoxaparin Sodium (Lovenox) 40 mg DAILY SC 05/14/25 10:00 05/14/25 09:50 Vancomycin HCl 0 ml @ 0 mls/hr PER PHARMACY IV 05/14/25 00:45 Losartan Potassium (Cozaar Tablet) 25 mg DAILY PO 05/14/25 10:00 05/14/25 09:51 Hydromorphone HCl (Dilaudid Injection) 0.5 mg Q4HPRN PRN IV SEVERE PAIN (7-10 PAIN SCALE) 05/14/25 00:45 05/14/25 03:46 Cefepime HCl 50 ml @ 12.5 mls/hr Q8HR IV 05/14/25 06:00 05/14/25 01:01 DC Clindamycin Phosphate 50 ml @ 50 mls/hr Q8HR IV 05/14/25 06:00 05/14/25 08:28 DC 05/14/25 05:43 Diagnostic Test (Pha) (Accu-Chek Comfort Curve T) 1 strip Q6HR 05/14/25 06:00 05/14/25 05:46 Insulin Human Regular (InsuLIN R) Q6HR SC 05/14/25 06:00 05/14/25 05:53 Dextrose 50 ml UD PRN IV Blood Sugar LESS THAN 60 05/14/25 00:45 Cefepime HCl 50 ml @ 12.5 mls/hr Q8H IV 05/14/25 10:00 05/14/25 09:49 Insulin Glargine (Lantus) 15 units DAILY@1000 SC 05/14/25 10:00 05/14/25 10:05 Atorvastatin Calcium (Lipitor) 80 mg HS PO 05/14/25 22:00 Vancomycin HCl 250 ml @ 200 mls/hr Q12H IV 05/14/25 17:00 Vital Signs Vital Signs Date Time Temp Pulse Resp B/P (MAP) Pulse Ox O2 Delivery O2 Flow Rate FiO2 05/14/25 09:51 148/79 05/14/25 09:00 98.4 88 18 94 98.4 05/14/25 08:10 Room Air* 0 21 Physical Exam Dermatological: Skin is dry with mild erythema and some maceration around the wound site No gross deformities noted Mild non-pitting edema present bilaterally Left dorsal foot wound with daniel necrosis Vascular: Dorsalis pedis and posterior tibial pulses are 1+ bilaterally Capillary refill is under 2 seconds Skin temperature is warm bilaterally Neurologic: Protective sensation is absent on the plantar forefoot bilaterally Monofilament testing reveals decreased sensation in multiple plantar sites Musculoskeletal: Range of motion at the ankle and MTP joints is within normal limits. Strength is 5/5 in all tested muscle groups. Gait is antalgic due to offloading of the affected limb. Labs/Diagnostic Data Labs Test 05/14/25 09:53 05/14/25 05:24 Range/Units POC Glucose 263 H 70-106 mg/dl White Blood Count 11.3 H 4.4-10.8 10^3/uL Red Blood Count 3.78 L 4.5-5.90 10^6/uL Hemoglobin 11.1 L 13.5-17.5 g/dL Hematocrit 33.2 #L 41.0-53.0 % Mean Corpuscular Volume 87.9 80.0-100.0 fL Mean Corpuscular Hemoglobin 29.4 28.0-32.0 pg Mean Corpuscular Hemoglobin Concent 33.5 32.0-36.0 g/dL Red Cell Distribution Width 13.9 11.8-14.3 % Platelet Count 326 140-450 10^3/uL Mean Platelet Volume 8.6 6.9-10.8 fL Neutrophils (%) (Auto) 72.1 37.0-80.0 % Lymphocytes (%) (Auto) 17.6 10.0-50.0 % Monocytes (%) (Auto) 9.4 0.0-12.0 % Eosinophils (%) (Auto) 0.5 0.0-7.0 % Basophils (%) (Auto) 0.4 0.0-2.0 % Neutrophils # (Auto) 8.1 1.6-8.6 10 ^3/uL Lymphocytes # (Auto) 2.0 0.4-5.4 10 ^3/uL Monocytes # (Auto) 1.1 0-1.3 10 ^3/uL Eosinophils # (Auto) 0.1 0-0.8 10 ^3/uL Basophils # (Auto) 0 0-0.2 10 ^3/uL Nucleated Red Blood Cells 0.0 % Erythrocyte Sedimentation Rate 98 H 0-20 mm/hr Prothrombin Time 12.3 H 9.3-11.8 sec Prothrombin Time INR 1.18 H 0.9-1.15 Activated Partial Thromboplast Time 34.9 H 24.5-34.5 SEC Sodium Level 137 136-145 mmol/L Potassium Level 3.4 L 3.5-5.1 mmol/L Chloride Level 102 98-107 mmol/L Carbon Dioxide Level 24 20-31 mmol/L Anion Gap 11 5-15 Blood Urea Nitrogen 10 9-23 mg/dL Creatinine 0.71 0.700-1.30 mg/dL Glomerular Filtration Rate Calc 103 >90 mL/min BUN/Creatinine Ratio 14.1 10.0-20.0 Serum Glucose 301 H 74-106 mg/dL Hemoglobin A1c 12.4 H <5.7 % A1C Lactic Acid Level 0.9 0.4-2.0 mmol/L Calcium Level 7.8 L 8.7-10.4 mg/dL Magnesium Level 2.1 1.6-2.6 mg/dL Total Bilirubin 0.5 0.2-1.0 mg/dL Direct Bilirubin 0.2 <0.3 mg/dL Aspartate Amino Transferase (AST) 13 13-40 U/L Alanine Aminotransferase (ALT) 12 7-40 U/L Alkaline Phosphatase 107 46-116 U/L C-Reactive Protein High Sensitivity 15.34 H <1.0 mg/dL Total Protein 7.0 5.7-8.2 g/dL Albumin 3.2 3.2-4.8 g/dL Problems(with codes): (1) Diabetic foot infection Plan/Recommendation ASSESSMENT: Patient is a 62 year old seen on the floor for a worsening ulcer PLAN: - The patients chart was reviewed, clinical findings were discussed with the patient, the etiologies of the conditions were discussed in detail, and a treatment plan was agreed to at this time, with both oral and written instructions provided. - reviewed advanced imaging - discussed plan is to perform an incision and drainage - take him to the OR today - we will get cultures in the OR - we will need multiple I and D's to salvage the limb - can weightbear as tolerated in postoperative shoe All questions were answered and concerns addressed to the patient's satisfaction. The patient was given the phone number to the clinic and was told how to make contact with the clinic should any concerns or questions arise. Patient understands that if any questions or concerns arise prior to the next appointment, we should be contacted immediately. FOLLOW-UP: Continue to follow while inpatient Plan discussed with: Patient Visit Coding Podiatry Date of Service if different f: May 14, 2025 Billing Provider: BRUCE GIBBS DPM Podiatry Common Visit Codes: CONSULT ONLY Podiatry Consult Codes: [id number] NEW/EST HI 80 BRUCE GIBBS DPM May 14, 2025 11:55
[2025-05-14] MEDS: BUPIVACAINE 0.5% P/F INJ 10 ML VIAL ONE (12:08)
[2025-05-14] MEDS: VANCOMYCIN HCL 1000 MG VL ONE (12:09)
[2025-05-14] MEDS: LIDOCAINE 1% HCL (LOCAL ANESTH.) INJ 20ML MDV ONE ×2 (12:27)
[2025-05-14 12:30] LABS: Urine Protein, UAD TRACE (Negative)
--- NOTE | 2025-05-14 12:38 | DVHOP2 ---
Operative Report - 2 Report Details Date: 05/14/25 Preop Diagnosis: 1. Left foot necrotizing fasciitis 2. Left foot cellulitis 3. Left foot abscess 4. Left foot diabetic infection Postop Diagnosis: Same as preop Surgeon: Bruce Gibbs MD Anesthesiologist: None Anesthesia: Local Consent: The patient was informed of the risks and benefits of the procedure. These include but are not limited to complications of anesthesia, postoperative infection, incomplete relief of symptoms, recurrence of symptoms, damage to blood vessels, nerves and tendons, deep venous thrombosis, pulmonary embolism and possible need for repeat surgery in the future. Complications: None Estimated Blood Loss: Minimal Fluids: See anesthesia Findings: Consistent with diagnosis Indications for Surgery: Worsening foot wound Name of Procedure Performed 1. Left foot I&D (09215) Procedure Details Procedure Details: PRE-PROCEDURE INFORMATION: In the pre-op holding area, the extremity to be operated on was clearly marked and the patient verified correct laterality of the marking. The patient was transferred to the OR table and placed in a supine position. A timeout was performed in which identification of the correct patient, procedure, location, and materials was done. The left foot and leg were prepped and draped in normal sterile fashion. DESCRIPTION OF PROCEDURE: Attention was directed to the left where area of fluctuance was noted. An incision was made over this area and was deepened through blunt dissection. The incision was deepened to the level of abscess and bone. Care was taken to the dissection to avoid any neurovascular and tendinous structures. The incision was deepened to the bone, and the abscess appeared to be purulent fluid consistent with pus. The cortices of the bone was then removed with rongeur an all necrotic tissue. After the abscess was drained, the area was irrigated with 3 L normal saline using cysto tubing. Deep cultures were then obtained from the wound. The area was then inspected and any areas of tracking, especially along the tendons were also drained. The wound was packed with Betadine-soaked gauze and we will need to be closed at a later date. POSTOPERATIVE INFORMATION: The patient tolerated the above noted procedure and anesthesia well and was transferred to the PACU with vital signs stable, and vascular status intact with capillary refill intact to all digits. Patient will need multiple I and D's to be able to salvage the foot. Continue IV antibiotics. Deep cultures were taken. Condition Good Disposition Still a Patient Visit Coding Podiatry Date of Service if different f: May 14, 2025 Billing Provider: BRUCE GIBBS DPM Podiatry Common Visit Codes: PROCEDURE ONLY BRUCE GIBBS DPM May 14, 2025 12:38
[2025-05-14 12:46] LABS: Cannabinoid Screen, Urine Neg (NEGATIVE); Opiate Scree,Urine Neg (NEGATIVE)
[2025-05-14 12:47] LABS: Amphetamine Screen, Urine Neg (NEGATIVE); Barbiturate Scree,Urine Neg (NEGATIVE); Benzodiazephine Screen, Urine Neg (NEGATIVE); Cocaine Screen, Urine Neg (NEGATIVE); Phencyclidine Screen, Urine Neg (NEGATIVE)
[2025-05-14] MEDS: HYDROcodone-ACET 5/325MG TAB PO PRN (15:54)
[2025-05-14] MEDS: VANCOMYCIN 1.25GM/250ML 250 ML IV SCH (16:38)
[2025-05-14] MEDS: ATORVASTATIN 20 MG TAB PO SCH (22:52)
[2025-05-15] VITALS (11 sets, daily range): BP systolic 118–140; BP diastolic 72–87; PULSE 77–90; RESP 16–18; TEMP 98.1–99.3; O2SAT 95–97
[2025-05-15 05:08] LABS: Hematocrit 32.7 % (41.0-53.0); Hemoglobin 11.0 g/dL (13.5-17.5); Mean Corpuscular Hemoglobin 29.6 pg (28.0-32.0); Mean Corpuscular Volume 87.9 fL (80.0-100.0); Nucleated Red Blood Cells % 0.1 %
[2025-05-15 05:17] LABS: Chloride 99 mmol/L (98-107); Potassium 3.7 mmol/L (3.5-5.1)
[2025-05-15 05:18] LABS: Anion Gap 8 (5-15); Carbon Dioxide 28 mmol/L (20-31)
[2025-05-15 05:22] LABS: Calcium 8.3 mg/dL (8.7-10.4); Sodium 135 mmol/L (136-145)
[2025-05-15 05:23] LABS: BUN/Creatinine Ratio 13.9 (10.0-20.0); Blood Urea Nitrogen 10 mg/dL (9-23)
[2025-05-15 05:26] LABS: Glucose 198 mg/dL (74-106)
--- NOTE | 2025-05-15 17:08 | DVHPNRES ---
Progress Note Date Seen: May 15, 2025 Resident Creating Document: RUBY EDWARD RESIDENT Has the PT tested + for MRSA If YES, has PT been informed?: No Medical Necessity Reason Pt with a Central, PICC or Fol: No Subjective Review of Systems Mr. Steve Canas, is a 64-year-old male, with past medical history of recently diagnosed HTN and DM type 2. The patient presented to [facility] ED with a chief complaint of 9 days of progressively worsening wound localized on the dorsum of left foot, associated with 10/10 burning/stabbing like pain, that irradiates up toward the left leg that worsen with walking and does not has alleviating factors. The left foot wound is associated with edema, yellowish foul smell discharge, erythema and warmth that extends to up to the middle part of the left leg. The patient reports 3 days prior the visit to the ED he start noticing a black eschar over the wound, and he had subjective fever, chills and malaise, this prompted his visit to the ED. On further questioning the patient reports he was newly diagnosed with DM2 and he is not taking any medication. 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 He denies recent trauma to the area, insect bites or new footwear. No prior similar episodes. On evaluation in the ED, patient is febrile, tachycardia, and BP is148/82 mmHg. Initial labs show WBC 12.0, serum glucose 289 and ALP 158. Left foot CT shows Extensive dorsal soft tissue thickening throughout the midfoot and forefoot. The patient was started on IV antibiotics and Insulin. Patient was admitted for further evaluation and management. Endocrine: Diabetes Past Surgical History: None Family History: DM Smoke: No ALCOHOL: occasional Drugs: None Lives: with [facility] course: On 05/14/25 the patient was evaluated and examined at bedside. The VS, labs and chart was reviewed. The patient reports he has chills, his left foot pain is better after analgesia 7/10. Bilateral artery studies showed: Diffuse atherosclerotic disease. No evidence of hemodynamically significant focal stenosis or occlusion. Bilateral leg doppler is negative for DVT. CT of the left leg showed: Extensive dorsal soft tissue thickening throughout the midfoot and forefoot. No obvious fluid collection or deep space infection, although CT is neither sensitive nor specific. MRI of the left foot showed:Diffuse soft tissue edema in the forefoot especially in between the 1st and 2nd webspace where there is fluid. Findings are concerning for cellulitis with the presence of abscess not excluded. No MR evidence of osteomyelitis in the left foot. Wound and blood cultures were ordered. The patient is receiving IV antibiotics: ceftriaxone and vancomycin. Podiatry and wound consult were placed. We will continue following this patient's progress. On 05/15/25 the patient was evaluated and examined at bedside. The VS, labs and chart was reviewed. The patient reports he has chills and fever 100F during the night. ERS and CRP are elevated. The patient reports his left foot pain is better after analgesia 12/22. Podiatry saw the patient on 05/14/25, and performed I&D with wound cultures, and informed that the patient might need more I&D to preserve the limb. The patient is receiving IV antibiotics: ceftriaxone and vancomycin. Cultures samples were received by the laboratory/microbiology. We will continue following this patient's progress. Review of Systems General: fever, chills, malaise. Eyes: No Pain, No Vision change, No Conjunctivae inflammation, No Eyelid inflammation, No Other, No Redness ENT: No Ear pain, No Ear discharge, No Nose pain, No Nose discharge, No Nose congestion, No Mouth pain, No Mouth swelling, No Throat pain, No Throat swelling, No Other Cardiovascular: No Chest Pain, No Palpitations, No Orthopnea, No Paroxysmal No Dyspnea, No Edema, No Lt Headedness, No Other Respiratory: No Cough, No Dry, No Shortness of breath, No SOB with exertion, No Wheezing, No Hemoptysis, No Pleuritic Pain, No Sputum, No Other Gastrointestinal: No Nausea, No Vomiting, No Abdominal Pain, No Diarrhea, No Constipation, No Melena, No Hematochezia, No Other Genitourinary: No Dysuria, No Frequency, No Incontinence, No Hematuria, No Retention, No Other Musculoskeletal: No other, No neck pain, No shoulder pain, No arm pain, No back pain, No hand pain, No leg pain, No foot pain Skin: No Rash, No Lesions, No Jaundice, No Bruising, No Other. Wound on the left foot dorsum. Coded Allergies: NO KNOWN ALLERGIES (Unverified , 05/13/25) Objective vital signs Vital Sign Date Time Temp Pulse Resp B/P (MAP) Pulse Ox O2 Delivery O2 Flow Rate FiO2 05/15/25 13:00 98.2 77 16 133/78 (96) 95 98.2 05/15/25 08:10 Room Air* 0 21 Total Intake and Output 05/14/25 05/14/25 05/15/25 15:00 23:00 07:00 Intake Total 300 ml 1000 ml 1600 ml Output Total 800 ml Balance 300 ml 1000 ml 800 ml medications Current Medications Medications Dose Ordered Sig/Frederikc Route Start Time Stop Time Status Last Admin Dose Admin Sodium Chloride 10 ml Q8HR IV 05/14/25 06:00 05/15/25 16:23 10 ML Acetaminophen/ Hydrocodone Bitart 1 tab Q4HP PRN PO 05/14/25 00:45 05/14/25 15:54 1 TAB Enoxaparin Sodium 40 mg DAILY SC 05/14/25 10:00 05/15/25 09:57 40 MG Vancomycin HCl 0 ml @ 0 mls/hr PER PHARMACY IV 05/14/25 00:45 Losartan Potassium 25 mg DAILY PO 05/14/25 10:00 05/15/25 09:38 25 MG Hydromorphone HCl 0.5 mg Q4HPRN PRN IV 05/14/25 00:45 05/14/25 20:06 0.5 MG Diagnostic Test (Pha) 1 strip Q6HR 05/14/25 06:00 05/15/25 11:48 1 STRIP Insulin Human Regular Q6HR SC 05/14/25 06:00 05/15/25 11:51 9 UNITS Dextrose 50 ml UD PRN IV 05/14/25 00:45 Insulin Glargine 15 units DAILY@1000 SC 05/14/25 10:00 05/15/25 09:49 15 UNITS Atorvastatin Calcium 80 mg HS PO 05/14/25 22:00 05/14/25 22:52 80 MG Vancomycin HCl 250 ml @ 200 mls/hr Q12H IV 05/14/25 17:00 05/15/25 05:31 200 MLS/HR Cefepime HCl 50 ml @ 12.5 mls/hr Q8H IV 05/15/25 19:00 Examination General Appearance: Cooperative. Well developed. Well nourished. NAD Head Exam: Normal inspection Neck Exam: Normal inspection. Non-tender. Normal alignment Pulmonary/Respiratory: Chest non-tender. Clear bilateral breath sounds, no crackles, no wheezing. Cardiovascular/Chest: Regular rate and rhythm. No murmurs. No JVD. Peripheral Pulses: 2+ Radial (R). 2+ Radial (L). 2+ Pedal (R). 2+ Pedal (L) Abdominal Exam: Normal bowel sounds. Soft. normal abdomen, no visible veins, Nontender. No hepatospenomegaly. No masses Ankle Exam: Negative ankle edema Lower extremities: Left leg: has erythema, edema and warmth, the left foot is covered by clean dressing. With Sensation preserved, popliteal and malleolus pulses are present, capillary refill<2 sec Right lower extremity: ankle multiple petechiae, No edema or erythema, pulses present, capillary refill <2 sec Neuro/Mental Status: A&O x3. Coherent. Thoughts/Psych: Normal thought pattern. Appropriate mood and affect. Skin Exam: as described above. laboratory and microbiology Laboratory Tests 05/15/25 04:43 Test 05/15/25 04:43 Range/Units Serum Glucose 198 #H 74-106 mg/dL Microbiology Date/Time Source Procedure Growth Status 05/14/25 12:15 Foot Left Gram Stain Pending Resulted 05/14/25 12:15 Foot Left Anaerobic Culture Pending Resulted 05/14/25 12:15 Foot Left Aerobic Culture - Preliminary Resulted 05/13/25 19:59 Blood Blood Culture - Preliminary NO GROWTH AFTER 24 HOURS OF INCUBATION. Resulted Problem List/Assessment/Plan Problem List/Assessment/Plan #Sepsis secondary to acute diabetic left foot acute cellulitis #Osteomyelitis was ruled out #Left foot abscess #Left foot narcotizing facitis. MRI left foot ordered: Diffuse soft tissue edema in the forefoot especially in between the 1st and 2nd webspace where there is fluid. Findings are concerning for cellulitis with the presence of abscess not excluded. No MR evidence of osteomyelitis in the left foot. CT left foot : Extensive dorsal soft tissue thickening throughout the midfoot and forefoot. No obvious fluid collection or deep space infection. Wound culture: pending results. Wound consult Podiatry consult: performed I&D on 05/14/25 IV NS 1,000 MLS/HR Vancomycin IV per pharmacy Cefepime 1GM/50ML IV q8h D/C Clindamycin IV q8h pain management with [place] 1 TAB PO q4h and Dilaudid 0.5 MG IV q4h prn Moderate Insulin SS SC q6h UA and UDS Lactic acid:1.0 Magnesium Hepatic panel ESR and CRP: elevated. #Type 2 diabetes mellitus with hyperglycemia, uncontrolled HbA1: 12.4% Moderate Insulin SS SC q6h #Hypertensive heart disease with systolic/diastolic failure Losartan 25 MG PO daily #Ruled out DVT Extremity venous sturdy: No sonographic evidence of left lower extremity deep venous thrombosis. Duplex Scan lower extremity artery: Diffuse atherosclerotic disease. No evidence of hemodynamically significant focal stenosis or occlusion. #Acute Hypokalemia K: 3.4 Replenish DVT prophylaxis Diet: Cardiac diet and low carbohydrate diet Goals of care discussed with the patient for more than 35 minutes: Code Status: Full code PCP: No established, the patient will follow up with D/C clinic Case discussed with Dr. Palacios Social consult was placed today to try to contact patient's family. Plan discussed with: Patient My Orders My Orders Orders - RUBY EDWARD RESIDENT Procedure Category Date Status Time Complete Blood Count LAB 05/16/25 Verified 04:00 Basic Metabolic Panel LAB 05/16/25 Verified 04:00 Dietary Evaluation Review Comments: 1) Initiate MVI @ 1 tb qd 2) Initiate vitamin C @ 500 mg bid and zinc sulfate @ 220 mg qd for 7 days 3) Continue 45g CCHO cardiac diet 4) Refer to outpatient RD/[facility] for diabetes education 5) Follow-up with podiatry 6) Continue to monitor I&O, labs, and skin integrity Expected Outcomes/Goals: 1) appetite and labs to improve 2) wound to improve 3) f/u in 3-5 days Date of Service: May 15, 2025 Billing Provider: YOBANY PALACIOS MD Common Visit Codes: [id number] INP/OBS CARE(HIGH) RUBY EDWARD May 15, 2025 17:08 YOBANY PALACIOS MD May 15, 2025 23:41
[2025-05-15] MEDS: CEFEPIME 1GM/50ML 50 ML IV SCH (19:01)
[2025-05-16] VITALS (7 sets, daily range): BP systolic 109–144; BP diastolic 69–84; PULSE 72–106; RESP 15–18; TEMP 97.2–98.2; O2SAT 94–97
[2025-05-16 06:27] LABS: Chloride 100 mmol/L (98-107); Hematocrit 32.8 % (41.0-53.0); Hemoglobin 11.1 g/dL (13.5-17.5); Mean Corpuscular Hemoglobin 29.4 pg (28.0-32.0); Mean Corpuscular Volume 87.1 fL (80.0-100.0); Nucleated Red Blood Cells % 0.0 %; Potassium 3.7 mmol/L (3.5-5.1); Sodium 137 mmol/L (136-145)
[2025-05-16 06:28] LABS: Anion Gap 10 (5-15); Calcium 9.1 mg/dL (8.7-10.4); Carbon Dioxide 27 mmol/L (20-31)
[2025-05-16 06:33] LABS: BUN/Creatinine Ratio 16.1 (10.0-20.0); Blood Urea Nitrogen 10 mg/dL (9-23)
[2025-05-16 06:36] LABS: Glucose 168 mg/dL (74-106)
--- NOTE | 2025-05-16 16:50 | DVHPNRES ---
Progress Note Date Seen: May 16, 2025 Resident Creating Document: KIMI ALCANTAR RESIDENT Has the PT tested + for MRSA If YES, has PT been informed?: No Medical Necessity Reason Pt with a Central, PICC or Fol: No Subjective Review of Systems Mr. Steve Canas, is a 64-year-old male, with past medical history of recently diagnosed HTN and DM type 2. The patient presented to [facility] ED with a chief complaint of 9 days of progressively worsening wound localized on the dorsum of left foot, associated with 10/10 burning/stabbing like pain, that irradiates up toward the left leg that worsen with walking and does not has alleviating factors. The left foot wound is associated with edema, yellowish foul smell discharge, erythema and warmth that extends to up to the middle part of the left leg. The patient reports 3 days prior the visit to the ED he start noticing a black eschar over the wound, and he had subjective fever, chills and malaise, this prompted his visit to the ED. On further questioning the patient reports he was newly diagnosed with DM2 and he is not taking any medication. 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 He denies recent trauma to the area, insect bites or new footwear. No prior similar episodes. On evaluation in the ED, patient is febrile, tachycardia, and BP is148/82 mmHg. Initial labs show WBC 12.0, serum glucose 289 and ALP 158. Left foot CT shows Extensive dorsal soft tissue thickening throughout the midfoot and forefoot. The patient was started on IV antibiotics and Insulin. Patient was admitted for further evaluation and management. Endocrine: Diabetes Past Surgical History: None Family History: DM Smoke: No ALCOHOL: occasional Drugs: None Lives: with [facility] course: On 05/14/25 the patient was evaluated and examined at bedside. The VS, labs and chart was reviewed. The patient reports he has chills, his left foot pain is better after analgesia 7/10. Bilateral artery studies showed: Diffuse atherosclerotic disease. No evidence of hemodynamically significant focal stenosis or occlusion. Bilateral leg doppler is negative for DVT. CT of the left leg showed: Extensive dorsal soft tissue thickening throughout the midfoot and forefoot. No obvious fluid collection or deep space infection, although CT is neither sensitive nor specific. MRI of the left foot showed:Diffuse soft tissue edema in the forefoot especially in between the 1st and 2nd webspace where there is fluid. Findings are concerning for cellulitis with the presence of abscess not excluded. No MR evidence of osteomyelitis in the left foot. Wound and blood cultures were ordered. The patient is receiving IV antibiotics: ceftriaxone and vancomycin. Podiatry and wound consult were placed. We will continue following this patient's progress. On 05/15/25 the patient was evaluated and examined at bedside. The VS, labs and chart was reviewed. The patient reports he has chills and fever 100F during the night. ERS and CRP are elevated. The patient reports his left foot pain is better after analgesia 12/22. Podiatry saw the patient on 05/14/25, and performed I&D with wound cultures, and informed that the patient might need more I&D to preserve the limb. The patient is receiving IV antibiotics: ceftriaxone and vancomycin. Cultures samples were received by the laboratory/microbiology. We will continue following this patient's progress. 05/16/25- patient was seen and evaluated at bedside. Vitals signs, labs and chart were reviewed. The patient mentions he has mild pain in his left leg. Preliminary wound culture grew Many growth: Beta-Hemolytic Group B Streptococcus and Few growth: Gram Negative Rods. We will continue with the same antibiotics and wait for sensitivity report and podiatry recommendations. General: fever, chills, malaise. Eyes: No Pain, No Vision change, No Conjunctivae inflammation, No Eyelid inflammation, No Redness ENT: No Ear pain, No Ear discharge, No Nose pain, No Nose discharge, No Nose congestion, No Mouth pain, No Mouth swelling, No Throat pain, No Throat swelling Cardiovascular: No Chest Pain, No Palpitations, No Orthopnea, No Paroxysmal No Dyspnea, No Edema, No Lt Headedness Respiratory: No Cough, No Dry, No Shortness of breath, No SOB with exertion, No Wheezing, No Hemoptysis, No Pleuritic Pain, No Sputum Gastrointestinal: No Nausea, No Vomiting, No Abdominal Pain, No Diarrhea, No Constipation, No Melena, No Hematochezia Genitourinary: No Dysuria, No Frequency, No Incontinence, No Hematuria, No Retention Musculoskeletal: No other, No neck pain, No shoulder pain, No arm pain, No back pain, No hand pain, No leg pain, No foot pain Skin: No Rash, No Lesions, No Jaundice, No Bruising, No Other. Wound on the left foot dorsum. Coded Allergies: NO KNOWN ALLERGIES (Unverified , 05/13/25) Objective vital signs Vital Sign Date Time Temp Pulse Resp B/P (MAP) Pulse Ox O2 Delivery O2 Flow Rate FiO2 05/16/25 13:00 98.1 81 18 118/75 (89) 96 98.1 05/16/25 08:00 Room Air* 0 21 Total Intake and Output 05/15/25 05/15/25 05/16/25 15:00 23:00 07:00 Intake Total 50 ml 1100 ml 425 ml Output Total 1550 ml Balance 50 ml 1100 ml -1125 ml medications Current Medications Medications Dose Ordered Sig/Frederick Route Start Time Stop Time Status Last Admin Dose Admin Sodium Chloride 10 ml Q8HR IV 05/14/25 06:00 05/16/25 13:28 10 ML Acetaminophen/ Hydrocodone Bitart 1 tab Q4HP PRN PO 05/14/25 00:45 05/14/25 15:54 1 TAB Enoxaparin Sodium 40 mg DAILY SC 05/14/25 10:00 05/16/25 09:15 40 MG Vancomycin HCl 0 ml @ 0 mls/hr PER PHARMACY IV 05/14/25 00:45 Losartan Potassium 25 mg DAILY PO 05/14/25 10:00 05/15/25 09:38 25 MG Hydromorphone HCl 0.5 mg Q4HPRN PRN IV 05/14/25 00:45 05/16/25 11:20 0.5 MG Diagnostic Test (Pha) 1 strip Q6HR 05/14/25 06:00 05/16/25 11:38 1 STRIP Insulin Human Regular Q6HR SC 05/14/25 06:00 05/16/25 11:38 9 UNITS Dextrose 50 ml UD PRN IV 05/14/25 00:45 Insulin Glargine 15 units DAILY@1000 SC 05/14/25 10:00 05/16/25 09:15 15 UNITS Atorvastatin Calcium 80 mg HS PO 05/14/25 22:00 05/15/25 21:11 80 MG Vancomycin HCl 250 ml @ 200 mls/hr Q12H IV 05/14/25 17:00 05/16/25 05:49 200 MLS/HR Cefepime HCl 50 ml @ 12.5 mls/hr Q8H IV 05/15/25 19:00 05/16/25 11:20 12.5 MLS/HR Examination General Appearance: Cooperative. Well developed. Well nourished. NAD Head Exam: Normal inspection Neck Exam: Normal inspection. Non-tender. Normal alignment Pulmonary/Respiratory: Chest non-tender. Clear bilateral breath sounds, no crackles, no wheezing. Cardiovascular/Chest: Regular rate and rhythm. No murmurs. No JVD. Peripheral Pulses: 2+ Radial (R). 2+ Radial (L). 2+ Pedal (R). 2+ Pedal (L) Abdominal Exam: Normal bowel sounds. Soft. normal abdomen, no visible veins, Nontender. No hepatospenomegaly. No masses Lower extremities: Left leg: has erythema, edema and warmth, the left foot is covered by clean dressing. With Sensation preserved, peripheral pulses are present, capillary refill<2 sec Right lower extremity: ankle multiple petechiae, No edema or erythema, pulses present, capillary refill <2 sec Neuro/Mental Status: A&O x3. Coherent. Thoughts/Psych: Normal thought pattern. Appropriate mood and affect. Skin Exam: as described above. laboratory and microbiology Laboratory Tests 05/16/25 05:14 Test 05/16/25 05:14 Range/Units Serum Glucose 168 H 74-106 mg/dL Microbiology Date/Time Source Procedure Growth Status 05/14/25 12:15 Foot Left Gram Stain Pending Resulted 05/14/25 12:15 Foot Left Anaerobic Culture - Preliminary Resulted 05/14/25 12:15 Foot Left Aerobic Culture - Preliminary Resulted 05/13/25 19:59 Blood Blood Culture - Preliminary NO GROWTH AFTER 48 HOURS OF INCUBATION. Resulted Labs and/or images reviewed: Labs reviewed by me, Image(s) reviewed by me Problem List/Assessment/Plan Problem List/Assessment/Plan #Sepsis secondary to acute diabetic left foot acute cellulitis #Osteomyelitis was ruled out #Left foot abscess #Left foot narcotizing facitis. MRI left foot ordered: Diffuse soft tissue edema in the forefoot especially in between the 1st and 2nd webspace where there is fluid. Findings are concerning for cellulitis with the presence of abscess not excluded. No MR evidence of osteomyelitis in the left foot. CT left foot : Extensive dorsal soft tissue thickening throughout the midfoot and forefoot. No obvious fluid collection or deep space infection. Wound culture: pending results. Many growth: Beta-Hemolytic Group B Streptococcus Few growth: Gram Negative Rods Podiatry consult: performed I&D on 05/14/25 IV NS 1,000 MLS/HR Vancomycin IV per pharmacy Cefepime 1GM/50ML IV q8h pain management with [place] 1 TAB PO q4h and Dilaudid 0.5 MG IV q4h prn ESR and CRP: elevated. #Type 2 diabetes mellitus with hyperglycemia, uncontrolled HbA1: 12.4% Moderate Insulin SS SC q6h #Hypertensive heart disease with systolic/diastolic failure Losartan 25 MG PO daily #Ruled out DVT Extremity venous sturdy: No sonographic evidence of left lower extremity deep venous thrombosis. Duplex Scan lower extremity artery: Diffuse atherosclerotic disease. No evidence of hemodynamically significant focal stenosis or occlusion. #Acute Hypokalemia K: 3.4 Replenish DVT prophylaxis Diet: Cardiac diet and low carbohydrate diet Goals of care discussed with the patient for more than 25 minutes: Code Status: Full code PCP: No established, the patient will follow up with D/C clinic Case discussed with Dr. Palacios Plan discussed with: Patient Dietary Evaluation Review Comments: 1) Initiate MVI @ 1 tb qd 2) Initiate vitamin C @ 500 mg bid and zinc sulfate @ 220 mg qd for 7 days 3) Continue 45g CCHO cardiac diet 4) Refer to outpatient RD/[facility] for diabetes education 5) Follow-up with podiatry 6) Continue to monitor I&O, labs, and skin integrity Expected Outcomes/Goals: 1) appetite and labs to improve 2) wound to improve 3) f/u in 3-5 days Date of Service: May 16, 2025 Billing Provider: YOBANY PALACIOS MD Common Visit Codes: [id number] INP/OBS CARE(HIGH) KIMI ALCANTAR RESIDENT May 16, 2025 16:49 YOBANY PALACIOS MD May 16, 2025 22:13
[2025-05-17] VITALS (9 sets, daily range): BP systolic 110–147; BP diastolic 75–91; PULSE 68–89; RESP 16–19; TEMP 97.2–98.4; O2SAT 18–99
[2025-05-17 04:26] LABS: Hematocrit 30.2 % (41.0-53.0); Hemoglobin 10.3 g/dL (13.5-17.5); Mean Corpuscular Hemoglobin 29.8 pg (28.0-32.0); Mean Corpuscular Volume 87.3 fL (80.0-100.0); Nucleated Red Blood Cells % 0.0 %
[2025-05-17 04:35] LABS: Chloride 99 mmol/L (98-107); Potassium 4.2 mmol/L (3.5-5.1)
[2025-05-17 04:36] LABS: Anion Gap 7 (5-15); Carbon Dioxide 29 mmol/L (20-31); Sodium 135 mmol/L (136-145)
[2025-05-17 04:37] LABS: Calcium 8.7 mg/dL (8.7-10.4)
[2025-05-17 04:41] LABS: BUN/Creatinine Ratio 16.7 (10.0-20.0); Blood Urea Nitrogen 14 mg/dL (9-23)
[2025-05-17 04:43] LABS: Glucose 243 mg/dL (74-106)
[2025-05-17] MEDS: VANCOMYCIN 1.25GM/250ML 250 ML IV SCH ×2 (07:29→16:28)
--- NOTE | 2025-05-17 12:30 | DVHPN2 ---
Subjective Patient is a 64-year-old male with past medical history of T2DM, presented to [facility] ED with complaint of progressively worsening wound on the left foot. He first noticed a reddish spot on the dorsal surface of the left foot approximately 9 days ago. The lesion has more enlarged and painful, 3 days ago, developed blackish discoloration with associated weeping wounds. 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 He has also not taken any medications for an extended period. He denies fever, chills, or recent trauma to the area. No known insect bites or new footwear. No prior similar episodes. On evaluation in the ED, patient is febrile, tachycardic, and BP is148/82 mmHg. Initial labs show WBC 12.0, serum glucose 289 and ALP 158. Left foot CT shows Extensive dorsal soft tissue thickening throughout the midfoot and forefoot. The patient was started on IV antibiotics and Insulin. Patient is admitted for further evaluation and management. Changes from previous H/P or p: No Changes Objective Vitals Vital Signs Date Time Temp Pulse Resp B/P (MAP) Pulse Ox O2 Delivery O2 Flow Rate FiO2 05/17/25 09:00 98.2 76 16 140/84 (102) 97 98.2 05/17/25 08:00 Room Air* 0 21 Intake/Output Intake and Output 05/17/25 07:00 Intake Total 1700 ml Output Total 400 ml Balance 1300 ml Intake Oral 1150 ml IV Total 550 ml Output Urine Total 400 ml # Voids 9 Exam Dermatological: Skin is dry with mild erythema and some maceration around the wound site No gross deformities noted Mild non-pitting edema present bilaterally Left foot dorsal wound with significant necrosis and purulent drainage Vascular: Dorsalis pedis and posterior tibial pulses are 1+ bilaterally Capillary refill is under 2 seconds Skin temperature is warm bilaterally Neurologic: Protective sensation is absent on the plantar forefoot bilaterally Monofilament testing reveals decreased sensation in multiple plantar sites Musculoskeletal: Range of motion at the ankle and MTP joints is within normal limits. Strength is 5/5 in all tested muscle groups. Gait is antalgic due to offloading of the affected limb. Medications Current Medications Medications Dose Ordered Sig/Fred[place] Route Start Time Stop Time Status Last Admin Dose Admin Sodium Chloride 10 ml Q8HR IV 05/14/25 06:00 05/17/25 05:17 10 ML Acetaminophen/ Hydrocodone Bitart 1 tab Q4HP PRN PO 05/14/25 00:45 05/14/25 15:54 1 TAB Enoxaparin Sodium 40 mg DAILY SC 05/14/25 10:00 05/16/25 09:15 40 MG Vancomycin HCl 0 ml @ 0 mls/hr PER PHARMACY IV 05/14/25 00:45 Losartan Potassium 25 mg DAILY PO 05/14/25 10:00 05/15/25 09:38 25 MG Hydromorphone HCl 0.5 mg Q4HPRN PRN IV 05/14/25 00:45 05/16/25 11:20 0.5 MG Diagnostic Test (Pha) 1 strip Q6HR 05/14/25 06:00 05/17/25 11:09 1 STRIP Insulin Human Regular Q6HR SC 05/14/25 06:00 05/17/25 05:15 9 UNITS Dextrose 50 ml UD PRN IV 05/14/25 00:45 Insulin Glargine 15 units DAILY@1000 SC 05/14/25 10:00 05/16/25 09:15 15 UNITS Atorvastatin Calcium 80 mg HS PO 05/14/25 22:00 05/16/25 22:00 80 MG Cefepime HCl 50 ml @ 12.5 mls/hr Q8H IV 05/15/25 19:00 05/17/25 11:09 12.5 MLS/HR Vancomycin HCl 250 ml @ 200 mls/hr Q8H IV 05/17/25 16:00 Laboratory Results Laboratory Tests 05/17/25 04:08 Chemistry Test 05/17/25 04:08 Calcium Level 8.7 mg/dL (8.7-10.4) Urinalysis Test 05/14/25 12:09 Urine Color Light-yellow (Yellow) Urine Clarity Clear (Clear) Urine pH 6.0 (5.0-9.0) Urine Specific Sandy 1.016 (1.001-1.035) Urine Protein Trace (Negative) H Urine Ketones 1+ (Negative) H Urine Blood Negative /uL (Negative) Urine Nitrite Negative (Negative) Urine Bilirubin Negative (Negative) Urine Urobilinogen 2 mg/dL (Negative) H Urine Leukocyte Esterase Negative /uL (Negative) Urine RBC 1 /hpf (0 - 3) Urine Microscopic WBC < 1 /HPF (0-3) Urine Squamous Epithelial Cells None seen /hpf (<5) Urine Bacteria None seen /hpf (None Seen) Urine Glucose 4+ mg/dL (Normal) H Microbiology Microbiology Date/Time Source Procedure Growth Status 05/14/25 12:15 Foot Left Gram Stain Pending Resulted 05/14/25 12:15 Foot Left Anaerobic Culture - Preliminary Resulted 05/14/25 12:15 Foot Left Aerobic Culture - Preliminary Resulted 05/13/25 19:59 Blood Blood Culture - Preliminary NO GROWTH AFTER 72 HOURS OF INCUBATION. Resulted Assessment/Plan Assessment/Plan ASSESSMENT: Patient is a 64 year old seen on the floor follow up s/p foot I&D PLAN: - The patients chart was reviewed, clinical findings were discussed with the patient, the etiologies of the conditions were discussed in detail, and a treatment plan was agreed to at this time, with both oral and written instructions provided. - reviewed advanced imaging - reviewed all of the labs and pathology - discussed plan is to perform a subsequent incision and drainage - patient has been NPO since midnight - take him to the OR today - it was determined that multiple I&Ds will be necessary to save the limb - can weightbear as tolerated in postoperative shoe All questions were answered and concerns addressed to the patient's satisfaction. The patient was given the phone number to the clinic and was told how to make contact with the clinic should any concerns or questions arise. Patient understands that if any questions or concerns arise prior to the next appointment, we should be contacted immediately. FOLLOW-UP: Continue to follow while inpatient Plan discussed with: Patient My Orders Orders - BRUCE GIBBS DPM Procedure Category Date Status Time Npo After Midnight PARUL 05/16/25 In Process 22:10 Npo (Nothing By DIET 05/17/25 Transmitted Mouth) Diet Breakfast Obtain Consent For: ORDERS 05/16/25 Transmitted 22:11 Problem List: (1) Diabetic foot infection Visit Coding Podiatry Date of Service if different f: May 17, 2025 Billing Provider: BRUCE GIBBS DPM Podiatry Common Visit Codes: [id number] INP/OBS CARE(HIGH) BRUCE GIBBS DPM May 17, 2025 12:30
[2025-05-17] MEDS: KETOROLAC TROMETH 30 MG/ML 1ML VIAL IV ONE (13:00)
[2025-05-17] MEDS ORDERED: MORPHINE SULFATE 4 MG/ML SYR/VIAL IV PRN (13:00)
[2025-05-17] MEDS ORDERED: HYDROmorphone HCL 2 MG/ML VL/or syr IV PRN (13:00)
[2025-05-17] MEDS ORDERED: METOCLOPRAMIDE HCL 5MG/ml INJ 2ml VIAL IV PRN (13:00)
[2025-05-17] MEDS ORDERED: MORPHINE SULFATE INJ 2 MG/ml SYRG IV PRN (13:00)
--- NOTE | 2025-05-17 13:27 | DVHOP2 ---
Operative Report - 2 Report Details Date: 05/17/25 Preop Diagnosis: 1. Left foot necrotizing fasciitis 2. Left foot cellulitis 3. Left foot abscess 4. Left foot diabetic infection Postop Diagnosis: Same as preop Surgeon: Bruce Gibbs MD Anesthesiologist: None Anesthesia: Local Consent: The patient was informed of the risks and benefits of the procedure. These include but are not limited to complications of anesthesia, postoperative infection, incomplete relief of symptoms, recurrence of symptoms, damage to blood vessels, nerves and tendons, deep venous thrombosis, pulmonary embolism and possible need for repeat surgery in the future. Complications: None Estimated Blood Loss: Minimal Fluids: See anesthesia Findings: Consistent with the diagnosis Indications for Surgery: Worsening foot wound Name of Procedure Performed 1. Left foot I&D (51423) Procedure Details Procedure Details: PRE-PROCEDURE INFORMATION: In the pre-op holding area, the extremity to be operated on was clearly marked and the patient verified correct laterality of the marking. The patient was transferred to the OR table and placed in a supine position. A timeout was performed in which identification of the correct patient, procedure, location, and materials was done. The left foot and leg were prepped and draped in normal sterile fashion. DESCRIPTION OF PROCEDURE: Attention was directed to the left foot where previous incision was made. An incision was made over this area and was deepened through blunt dissection. The incision was deepened to the level of abscess and bone. Care was taken to the dissection to avoid any neurovascular and tendinous structures. The incision was deepened to the bone, and the abscess appeared to be purulent fluid consistent with pus. The cortices of the bone was then removed with rongeur an all necrotic tissue. After the abscess was drained, the area was irrigated with 3 L normal saline using cysto tubing. The area was then inspected and any areas of tracking, especially along the tendons were also drained. The wound was packed with Betadine-soaked gauze and we will need to be closed at a later date. POSTOPERATIVE INFORMATION: The patient tolerated the above noted procedure and anesthesia well and was transferred to the PACU with vital signs stable, and vascular status intact with capillary refill intact to all digits. Patient will need multiple I and D's to be able to salvage the foot. Will need 6 weeks of IV antibiotics. Will need wound vac in the future. Will bring him back on Saturday. Condition Good Disposition Still a Patient Visit Coding Podiatry Date of Service if different f: May 17, 2025 Billing Provider: BRUCE GIBBS DPM Podiatry Common Visit Codes: PROCEDURE ONLY BRUCE GIBBS DPM May 17, 2025 13:27
[2025-05-17] MEDS ORDERED: ONDANSETRON HCL 4 MG/2 ML VIAL ONE (13:40)
[2025-05-17] MEDS ORDERED: MEPERIDINE HCL (25 MG/ML) 1ML VIAL ONE (13:40)
[2025-05-17] MEDS: ACETAMINOPHEN IV 1000 MG/100ML (10MG/ML) IV ONE (13:40)
[2025-05-17] MEDS ORDERED: MIDAZOLAM HCL 2MG/2ML 2ml VIAL (1mg/ml) ONE (13:40)
[2025-05-17] MEDS ORDERED: SODIUM CHLORIDE LOCK 10 ML ONE (13:40)
[2025-05-17] MEDS ORDERED: fentaNYL CITRATE 100 MCG/2 ML VL ONE (13:40)
[2025-05-17] MEDS ORDERED: PROPOFOL 10 MG/ML 20 ML IV ONE (13:40)
[2025-05-17] MEDS ORDERED: LIDOCAINE 1% INJ PF 5ML AMP ONE (13:40)
[2025-05-17] MEDS: BUPIVACAINE 0.5% P/F INJ 10 ML VIAL ONE (13:44)
[2025-05-17] MEDS: ACCU-CHEK COMFORT CURVE STRIP VI ONE (13:45)
[2025-05-17] MEDS: LIDOCAINE 1% HCL (LOCAL ANESTH.) INJ 20ML MDV ONE (13:48)
[2025-05-17] MEDS: HYDROmorphone HCL 2 MG/ML VL/or syr IV PRN (13:59)
[2025-05-17] MEDS ORDERED: KETAMINE 50mg/ML 1ml syringe ONE (14:03)
[2025-05-17] MEDS: ACETAMINOPHEN IV 100 ML IV ONE (14:39)
--- NOTE | 2025-05-17 15:42 | DVHPNRES ---
Progress Note Date Seen: May 17, 2025 Resident Creating Document: RUBY EDWARD RESIDENT Has the PT tested + for MRSA If YES, has PT been informed?: No Medical Necessity Reason Pt with a Central, PICC or Fol: No Subjective Review of Systems Mr. Steve Canas, is a 64-year-old male, with past medical history of recently diagnosed HTN and DM type 2. The patient presented to [facility] ED with a chief complaint of 9 days of progressively worsening wound localized on the dorsum of left foot, associated with 10/10 burning/stabbing like pain, that irradiates up toward the left leg that worsen with walking and does not has alleviating factors. The left foot wound is associated with edema, yellowish foul smell discharge, erythema and warmth that extends to up to the middle part of the left leg. The patient reports 3 days prior the visit to the ED he start noticing a black eschar over the wound, and he had subjective fever, chills and malaise, this prompted his visit to the ED. On further questioning the patient reports he was newly diagnosed with DM2 and he is not taking any medication. 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 He denies recent trauma to the area, insect bites or new footwear. No prior similar episodes. On evaluation in the ED, patient is febrile, tachycardia, and BP is148/82 mmHg. Initial labs show WBC 12.0, serum glucose 289 and ALP 158. Left foot CT shows Extensive dorsal soft tissue thickening throughout the midfoot and forefoot. The patient was started on IV antibiotics and Insulin. Patient was admitted for further evaluation and management. Past medical history as above. Past Surgical History: None Family History: DM2 Social history: Smoke: No, ALCOHOL: occasional. Drugs: None. Lives: with Family Hospital course: On 05/14/25 the patient was evaluated and examined at bedside. The VS, labs and chart was reviewed. The patient reports he has chills, his left foot pain is better after analgesia 7/10. Bilateral artery studies showed: Diffuse atherosclerotic disease. No evidence of hemodynamically significant focal stenosis or occlusion. Bilateral leg doppler is negative for DVT. CT of the left leg showed: Extensive dorsal soft tissue thickening throughout the midfoot and forefoot. No obvious fluid collection or deep space infection, although CT is neither sensitive nor specific. MRI of the left foot showed:Diffuse soft tissue edema in the forefoot especially in between the 1st and 2nd webspace where there is fluid. Findings are concerning for cellulitis with the presence of abscess not excluded. No MR evidence of osteomyelitis in the left foot. Wound and blood cultures were ordered. The patient is receiving IV antibiotics: ceftriaxone and vancomycin. Podiatry and wound consult were placed. We will continue following this patient's progress. On 05/15/25 the patient was evaluated and examined at bedside. The VS, labs and chart was reviewed. The patient reports he has chills and fever 100F during the night. ERS and CRP are elevated. The patient reports his left foot pain is better after analgesia 12/22. Podiatry saw the patient on 05/14/25, and performed I&D with wound cultures, and informed that the patient might need more I&D to preserve the limb. The patient is receiving IV antibiotics: ceftriaxone and vancomycin. Cultures samples were received by the laboratory/microbiology. We will continue following this patient's progress. On 05/16/25, patient was seen and evaluated at bedside. Vitals signs, labs and chart were reviewed. The patient mentions he has mild pain in his left leg. Preliminary wound culture grew Many growth: Beta- Hemolytic Group B Streptococcus and Few growth: Gram Negative Rods. We will continue with the same antibiotics and wait for sensitivity report and podiatry recommendations. On 05/17/25 the patient was evaluated and examined at bedside. The VS, labs and chart was reviewed. The patient reports feeling better, no fever during the night, his pain has improved to 4/10. Podiatry is on board, I&D will be performed today. The patient is receiving IV antibiotics: ceftriaxone and vancomycin. Cultures samples were received by the laboratory/microbiology, the wound culture showed: growth of Acinetobacter baumannii. sensitive to We will continue following this patient's progress. ROS General: No fever, chills or malaise. Eyes: No Pain, No Vision change, No Conjunctivae inflammation, No Eyelid inflammation, No Redness ENT: No Ear pain, No Ear discharge, No Nose pain, No Nose discharge, No Nose congestion, No Mouth pain, No Mouth swelling, No Throat pain, No Throat swelling Cardiovascular: No Chest Pain, No Palpitations, No Orthopnea, No Paroxysmal No Dyspnea, No Edema, No Lt Headedness Respiratory: No Cough, No Dry, No Shortness of breath, No SOB with exertion, No Wheezing, No Hemoptysis, No Pleuritic Pain, No Sputum Gastrointestinal: No Nausea, No Vomiting, No Abdominal Pain, No Diarrhea, No Constipation, No Melena, No Hematochezia Genitourinary: No Dysuria, No Frequency, No Incontinence, No Hematuria, No Retention Musculoskeletal: Improving of the pain on the left foot and leg, edema. erythema and warmth. No other, No neck pain, No shoulder pain, No arm pain, No back pain, No hand pain. Skin: right leg petcheias over ankle improving. No Rash, No Lesions, No Jaundice, No Bruising, No Other. Wound on the left foot dorsum. Coded Allergies: NO KNOWN ALLERGIES (Unverified , 05/13/25) Objective vital signs Vital Sign Date Time Temp Pulse Resp B/P (MAP) Pulse Ox O2 Delivery O2 Flow Rate FiO2 05/17/25 14:09 65 12 115/65 (82) 97 05/17/25 13:29 98.4 98.4 05/17/25 13:29 Room Air 0 99 Total Intake and Output 05/16/25 05/16/25 05/17/25 15:00 23:00 07:00 Intake Total 250 ml 1300 ml 150 ml Output Total 400 ml Balance 250 ml 900 ml 150 ml medications Current Medications Medications Dose Ordered Sig/Frederick Route Start Time Stop Time Status Last Admin Dose Admin Sodium Chloride 10 ml Q8HR IV 05/14/25 06:00 05/17/25 15:13 10 ML Acetaminophen/ Hydrocodone Bitart 1 tab Q4HP PRN PO 05/14/25 00:45 05/14/25 15:54 1 TAB Enoxaparin Sodium 40 mg DAILY SC 05/14/25 10:00 05/16/25 09:15 40 MG Vancomycin HCl 0 ml @ 0 mls/hr PER PHARMACY IV 05/14/25 00:45 Losartan Potassium 25 mg DAILY PO 05/14/25 10:00 05/15/25 09:38 25 MG Hydromorphone HCl 0.5 mg Q4HPRN PRN IV 05/14/25 00:45 05/16/25 11:20 0.5 MG Diagnostic Test (Pha) 1 strip Q6HR 05/14/25 06:00 05/17/25 11:09 1 STRIP Insulin Human Regular Q6HR SC 05/14/25 06:00 05/17/25 05:15 9 UNITS Dextrose 50 ml UD PRN IV 05/14/25 00:45 Insulin Glargine 15 units DAILY@1000 SC 05/14/25 10:00 05/16/25 09:15 15 UNITS Atorvastatin Calcium 80 mg HS PO 05/14/25 22:00 05/16/25 22:00 80 MG Cefepime HCl 50 ml @ 12.5 mls/hr Q8H IV 05/15/25 19:00 05/17/25 11:09 12.5 MLS/HR Vancomycin HCl 250 ml @ 200 mls/hr Q8H IV 05/17/25 16:00 Morphine Sulfate 2 mg Q4H PRN IV 05/17/25 13:00 05/17/25 17:01 Examination General Appearance: Cooperative. Well developed. Well nourished. NAD Head Exam: Normal inspection Neck Exam: Normal inspection. Non-tender. Normal alignment Pulmonary/Respiratory: Chest non-tender. Clear bilateral breath sounds, no crackles, no wheezing. Cardiovascular/Chest: Regular rate and rhythm. No murmurs. No JVD. Peripheral Pulses: 2+ Radial (R). 2+ Radial (L). 2+ Pedal (R). 2+ Pedal (L) Abdominal Exam: Normal bowel sounds. Soft. normal abdomen, no visible veins, Nontender. No hepatospenomegaly. No masses Lower extremities: Left leg: mild erythema( erythema has improved compared to prior days) , mild edema and less warmth, the left foot is covered by clean dressing. With Sensation preserved, peripheral pulses are present, capillary refill<2 sec Right lower extremity: ankle multiple petechiae, No edema or erythema, pulses present, capillary refill <2 sec Neuro/Mental Status: A&O x3. Coherent. Thoughts/Psych: Normal thought pattern. Appropriate mood and affect. Skin Exam: as described above. laboratory and microbiology Laboratory Tests 05/17/25 04:08 Test 05/17/25 04:08 Range/Units Serum Glucose 243 H 74-106 mg/dL Microbiology Date/Time Source Procedure Growth Status 05/14/25 12:15 Foot Left Gram Stain - Final Resulted 05/14/25 12:15 Foot Left Anaerobic Culture - Preliminary Resulted 05/14/25 12:15 Aerobic Culture - Final Acinetobacter baumannii Resulted 05/13/25 19:59 Blood Blood Culture - Preliminary NO GROWTH AFTER 72 HOURS OF INCUBATION. Resulted Problem List/Assessment/Plan Problem List/Assessment/Plan #Sepsis secondary to acute diabetic left foot acute cellulitis #Osteomyelitis was ruled out #Left foot abscess #Left foot narcotizing facitis. MRI left foot ordered: Diffuse soft tissue edema in the forefoot especially in between the 1st and 2nd webspace where there is fluid. Findings are concerning for cellulitis with the presence of abscess not excluded. No MR evidence of osteomyelitis in the left foot. CT left foot : Extensive dorsal soft tissue thickening throughout the midfoot and forefoot. No obvious fluid collection or deep space infection. Wound culture: Acinetobacter baumannii: FEW GROWTH Wound consult Podiatry consult: performed I&D on 05/14/25 IV NS 1,000 MLS/HR Vancomycin IV per pharmacy Cefepime 1GM/50ML IV q8h D/C Clindamycin IV q8h pain management with [place] 1 TAB PO q4h and Dilaudid 0.5 MG IV q4h prn Moderate Insulin SS SC q6h UA and UDS Lactic acid:1.0 Magnesium Hepatic panel ESR and CRP: elevated. #Type 2 diabetes mellitus with hyperglycemia, uncontrolled HbA1: 12.4% Moderate Insulin SS SC q6h #Hypertensive heart disease with systolic/diastolic failure Losartan 25 MG PO daily #Ruled out DVT Extremity venous sturdy: No sonographic evidence of left lower extremity deep venous thrombosis. Duplex Scan lower extremity artery: Diffuse atherosclerotic disease. No evidence of hemodynamically significant focal stenosis or occlusion. #Acute Hypokalemia K: 3.4 Replenish DVT prophylaxis Diet: Cardiac diet and low carbohydrate diet Goals of care discussed with the patient for more than 35 minutes: Code Status: Full code PCP: No established, the patient will follow up with D/C clinic Case discussed with Social consult was placed today to try to contact patient's family. 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 CONS 05/17/25 Transmitted Consult Consult Care CONS 05/17/25 Transmitted Coordinator Dietary Evaluation Review Comments: 1) Initiate MVI @ 1 tb qd 2) Initiate vitamin C @ 500 mg bid and zinc sulfate @ 220 mg qd for 7 days 3) Continue 45g CCHO cardiac diet 4) Refer to outpatient RD/CD[facility] for diabetes education 5) Follow-up with podiatry 6) Continue to monitor I&O, labs, and skin integrity Expected Outcomes/Goals: 1) appetite and labs to improve 2) wound to improve 3) f/u in 3-5 days Date of Service: May 17, 2025 Billing Provider: ABDIEL STORY MD Common Visit Codes: [id number] INP/OBS CARE(HIGH) RUBY EDWARD RESIDENT May 17, 2025 15:42
[2025-05-17] MEDS ORDERED: VANCOMYCIN 1.25GM/250ML 250 ML IV SCH (16:00)
[2025-05-18] VITALS (7 sets, daily range): BP systolic 110–133; BP diastolic 66–76; PULSE 73–96; RESP 16–18; TEMP 97.6–99.4; O2SAT 95–98
[2025-05-18 07:47] LABS: Chloride 98 mmol/L (98-107)
[2025-05-18 07:48] LABS: Anion Gap 9 (5-15); Carbon Dioxide 28 mmol/L (20-31)
[2025-05-18 07:49] LABS: Calcium 8.5 mg/dL (8.7-10.4); Potassium 5.1 mmol/L (3.5-5.1); Sodium 135 mmol/L (136-145)
[2025-05-18 07:50] LABS: Nucleated Red Blood Cells % 0.0 %
[2025-05-18 07:52] LABS: Hematocrit 33.9 % (41.0-53.0); Hemoglobin 11.4 g/dL (13.5-17.5); Mean Corpuscular Hemoglobin 29.8 pg (28.0-32.0); Mean Corpuscular Volume 88.5 fL (80.0-100.0)
[2025-05-18 07:53] LABS: BUN/Creatinine Ratio 17.1 (10.0-20.0); Blood Urea Nitrogen 13 mg/dL (9-23)
[2025-05-18 07:54] LABS: Glucose 203 mg/dL (74-106)
--- NOTE | 2025-05-18 15:49 | MEDREC ---
[facility] ASP Intervention Section I [facility] ASP Intervention: Deescalate AB based on CS (PLEASE CONSIDER DE-ESCALATION TO UNASYN ACCORDING TO CULTURE RESULTS AND SUSCEPTIBILITIES) ANKIT TABOR PHARMACIST May 18, 2025 15:49
[2025-05-18] MEDS: VANCOMYCIN 750MG KIT 100 ML IV SCH (16:05)
--- NOTE | 2025-05-18 18:56 | DVHPNRES ---
Progress Note Date Seen: May 18, 2025 Resident Creating Document: RUBY EDWARD RESIDENT Has the PT tested + for MRSA If YES, has PT been informed?: No Medical Necessity Reason Pt with a Central, PICC or Fol: No Subjective Review of Systems Mr. Steve Canas, is a 64-year-old male, with past medical history of recently diagnosed HTN and DM type 2. The patient presented to [facility] ED with a chief complaint of 9 days of progressively worsening wound localized on the dorsum of left foot, associated with 10/10 burning/stabbing like pain, that irradiates up toward the left leg that worsen with walking and does not has alleviating factors. The left foot wound is associated with edema, yellowish foul smell discharge, erythema and warmth that extends to up to the middle part of the left leg. The patient reports 3 days prior the visit to the ED he start noticing a black eschar over the wound, and he had subjective fever, chills and malaise, this prompted his visit to the ED. On further questioning the patient reports he was newly diagnosed with DM2 and he is not taking any medication. 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 He denies recent trauma to the area, insect bites or new footwear. No prior similar episodes. On evaluation in the ED, patient is febrile, tachycardia, and BP is148/82 mmHg. Initial labs show WBC 12.0, serum glucose 289 and ALP 158. Left foot CT shows Extensive dorsal soft tissue thickening throughout the midfoot and forefoot. The patient was started on IV antibiotics and Insulin. Patient was admitted for further evaluation and management. Past medical history as above. Past Surgical History: None Family History: DM2 Social history: Smoke: No, ALCOHOL: occasional. Drugs: None. Lives: with Family Hospital course: On 05/14/25 the patient was evaluated and examined at bedside. The VS, labs and chart was reviewed. The patient reports he has chills, his left foot pain is better after analgesia 7/10. Bilateral artery studies showed: Diffuse atherosclerotic disease. No evidence of hemodynamically significant focal stenosis or occlusion. Bilateral leg doppler is negative for DVT. CT of the left leg showed: Extensive dorsal soft tissue thickening throughout the midfoot and forefoot. No obvious fluid collection or deep space infection, although CT is neither sensitive nor specific. MRI of the left foot showed:Diffuse soft tissue edema in the forefoot especially in between the 1st and 2nd webspace where there is fluid. Findings are concerning for cellulitis with the presence of abscess not excluded. No MR evidence of osteomyelitis in the left foot. Wound and blood cultures were ordered. The patient is receiving IV antibiotics: ceftriaxone and vancomycin. Podiatry and wound consult were placed. We will continue following this patient's progress. On 05/15/25 the patient was evaluated and examined at bedside. The VS, labs and chart was reviewed. The patient reports he has chills and fever 100F during the night. ERS and CRP are elevated. The patient reports his left foot pain is better after analgesia 12/22. Podiatry saw the patient on 05/14/25, and performed I&D with wound cultures, and informed that the patient might need more I&D to preserve the limb. The patient is receiving IV antibiotics: cefepime and vancomycin. Cultures samples were received by the laboratory/microbiology. We will continue following this patient's progress. On 05/16/25, patient was seen and evaluated at bedside. Vitals signs, labs and chart were reviewed. The patient mentions he has mild pain in his left leg. Preliminary wound culture grew Many growth: Beta- Hemolytic Group B Streptococcus and Few growth:Gram Negative Rods. We will continue with the same antibiotics and wait for sensitivity report and podiatry recommendations. On 05/17/25 the patient was evaluated and examined at bedside.The VS, labs and chart was reviewed. The patient reports feeling better, no fever during the night, his pain has improved to 4/10. Podiatry is on board, I&D will be performed today. The patient is receiving IV antibiotics: ceftriaxone and vancomycin. Cultures samples were received by the laboratory/microbiology. The wound culture showed: growth of Acinetobacter baumannii.We will continue following this patient's progress. On 05/18/25 the patient was evaluated and examined at bedside. The VS, labs and chart was reviewed. The patient reports feeling better, no fever last night. His pain has improved to 4/10. Podiatry is on board, 3erd I&D will be performed tomorrow 05/19/25. The patient is receiving IV antibiotics: cefepime and vancomycin. Cultures samples were received by the laboratory/microbiology, the wound culture showed: growth of Acinetobacter baumannii, that is sensitive to cefepime. We will continue following this patient's progress. ROS General: No fever, chills or malaise. Eyes: No Pain, No Vision change, No Conjunctivae inflammation, No Eyelid inflammation, No Redness ENT: No Ear pain, No Ear discharge, No Nose pain, No Nose discharge, No Nose congestion, No Mouth pain, No Mouth swelling, No Throat pain, No Throat swelling Cardiovascular: No Chest Pain, No Palpitations, No Orthopnea, No Paroxysmal No Dyspnea, No Edema, No Lt Headedness Respiratory: No Cough, No Dry, No Shortness of breath, No SOB with exertion, No Wheezing, No Hemoptysis, No Pleuritic Pain, No Sputum Gastrointestinal: No Nausea, No Vomiting, No Abdominal Pain, No Diarrhea, No Constipation, No Melena, No Hematochezia Genitourinary: No Dysuria, No Frequency, No Incontinence, No Hematuria, No Retention Musculoskeletal: Improving of the pain on the left foot and leg, edema. erythema and warmth. No other, No neck pain, No shoulder pain, No arm pain, No back pain, No hand pain. Skin: right leg petcheias over ankle improving. No Rash, No Lesions, No Jaundice, No Bruising, No Other. Wound on the left foot dorsum. Coded Allergies: NO KNOWN ALLERGIES (Unverified , 05/13/25) Objective vital signs Vital Sign Date Time Temp Pulse Resp B/P (MAP) Pulse Ox O2 Delivery O2 Flow Rate FiO2 05/18/25 16:44 99.4 77 16 110/66 (81) 97 99.4 05/18/25 08:00 Room Air* 0 21 Total Intake and Output 05/17/25 05/17/25 05/18/25 15:00 23:00 07:00 Intake Total 150 ml 50 ml 850 ml Balance 150 ml 50 ml 850 ml medications Current Medications Medications Dose Ordered Sig/Freder[place] Route Start Time Stop Time Status Last Admin Dose Admin Sodium Chloride 10 ml Q8HR IV 05/14/25 06:00 05/18/25 13:18 10 ML Acetaminophen/ Hydrocodone Bitart 1 tab Q4HP PRN PO 05/14/25 00:45 05/14/25 15:54 1 TAB Enoxaparin Sodium 40 mg DAILY SC 05/14/25 10:00 05/18/25 10:06 40 MG Vancomycin HCl 0 ml @ 0 mls/hr PER PHARMACY IV 05/14/25 00:45 Losartan Potassium 25 mg DAILY PO 05/14/25 10:00 05/18/25 10:06 25 MG Hydromorphone HCl 0.5 mg Q4HPRN PRN IV 05/14/25 00:45 05/16/25 11:20 0.5 MG Diagnostic Test (Pha) 1 strip Q6HR 05/14/25 06:00 05/18/25 17:16 1 STRIP Insulin Human Regular Q6HR SC 05/14/25 06:00 05/18/25 17:15 3 UNITS Dextrose 50 ml UD PRN IV 05/14/25 00:45 Atorvastatin Calcium 80 mg HS PO 05/14/25 22:00 05/17/25 21:21 80 MG Cefepime HCl 50 ml @ 12.5 mls/hr Q8H IV 05/15/25 19:00 05/18/25 18:07 12.5 MLS/HR Insulin Glargine 20 units DAILY@1000 SC 05/19/25 10:00 Vancomycin HCl 100 ml @ 100 mls/hr Q8H IV 05/18/25 16:00 05/18/25 16:05 100 MLS/HR Examination General Appearance: Cooperative. Well developed. Well nourished. NAD Head Exam: Normal inspection Neck Exam: Normal inspection. Non-tender. Normal alignment Pulmonary/Respiratory: Chest non-tender. Clear bilateral breath sounds, no crackles, no wheezing. Cardiovascular/Chest: Regular rate and rhythm. No murmurs. No JVD. Peripheral Pulses: 2+ Radial (R). 2+ Radial (L). 2+ Pedal (R). 2+ Pedal (L) Abdominal Exam: Normal bowel sounds. Soft. normal abdomen, no visible veins, Nontender. No hepatospenomegaly. No masses Lower extremities: Left leg: mild erythema( erythema has improved compared to prior days) , mild edema and less warmth, the left foot is covered by clean dressing. With Sensation preserved, peripheral pulses are present, capillary refill<2 sec Right lower extremity: ankle multiple petechiae, No edema or erythema, pulses present, capillary refill <2 sec Neuro/Mental Status: A&O x3. Coherent. Thoughts/Psych: Normal thought pattern. Appropriate mood and affect. Skin Exam: as described above. laboratory and microbiology Laboratory Tests 05/18/25 07:00 Test 05/18/25 07:00 Range/Units Serum Glucose 203 H 74-106 mg/dL Microbiology Date/Time Source Procedure Growth Status 05/14/25 12:15 Foot Left Gram Stain - Final Resulted 05/14/25 12:15 Foot Left Anaerobic Culture - Preliminary Resulted 05/14/25 12:15 Aerobic Culture - Final Acinetobacter baumannii Resulted 05/13/25 19:59 Blood Blood Culture - Preliminary NO GROWTH AFTER 72 HOURS OF INCUBATION. Resulted Problem List/Assessment/Plan Problem List/Assessment/Plan #Sepsis secondary to acute diabetic left foot acute cellulitis #Acute Osteomyelitis was ruled out #Acute Left foot abscess #Acute Left foot narcotizing facitis. MRI left foot ordered: Diffuse soft tissue edema in the forefoot especially in between the 1st and 2nd webspace where there is fluid. Findings are concerning for cellulitis with the presence of abscess not excluded. No MR evidence of osteomyelitis in the left foot. CT left foot : Extensive dorsal soft tissue thickening throughout the midfoot and forefoot. No obvious fluid collection or deep space infection. Wound culture: Acinetobacter baumannii: sensitive to cefepime Wound consult Podiatry consult: performed I&D on 05/14/25 and 05/17/25. Next I&D will be performed on 05/19/25 IV NS 1,000 MLS/HR Vancomycin IV per pharmacy Cefepime 1GM/50ML IV q8h D/C Clindamycin IV q8h pain management with [place] 1 TAB PO q4h and Dilaudid 0.5 MG IV q4h prn Moderate Insulin SS SC q6h UA and UDS Lactic acid:1.0 Magnesium Hepatic panel ESR and CRP: elevated. #Type 2 diabetes mellitus with hyperglycemia, uncontrolled HbA1: 12.4% Moderate Insulin SS SC q6h #Hypertensive heart disease with systolic/diastolic failure Losartan 25 MG PO daily #Ruled out DVT Extremity venous sturdy: No sonographic evidence of left lower extremity deep venous thrombosis. Duplex Scan lower extremity artery: Diffuse atherosclerotic disease. No evidence of hemodynamically significant focal stenosis or occlusion. #Acute Hypokalemia K: 3.4 Replenish DVT prophylaxis Diet: Cardiac diet and low carbohydrate diet Goals of care discussed with the patient for more than 35 minutes: Code Status: Full code PCP: No established, the patient will follow up with D/C clinic Case discussed with . Plan discussed with: Patient Dietary Evaluation Review Comments: 1) Initiate MVI @ 1 tb qd 2) Initiate vitamin C @ 500 mg bid and zinc sulfate @ 220 mg qd for 7 days 3) Continue 45g CCHO cardiac diet 4) Refer to outpatient RD/[facility] for diabetes education 5) Follow-up with podiatry 6) Continue to monitor I&O, labs, and skin integrity Expected Outcomes/Goals: 1) appetite and labs to improve 2) wound to improve 3) f/u in 3-5 days Date of Service: May 18, 2025 Billing Provider: ABDIEL STORY MD Common Visit Codes: [id number] INP/OBS CARE(HIGH) RUBY EDWARD RESIDENT May 18, 2025 18:56
[2025-05-19] VITALS (7 sets, daily range): BP systolic 105–111; BP diastolic 62–73; PULSE 65–84; RESP 12–20; TEMP 97.8–98.7; O2SAT 95–100
[2025-05-19 07:02] LABS: Chloride 98 mmol/L (98-107); Potassium 4.4 mmol/L (3.5-5.1); Sodium 137 mmol/L (136-145)
[2025-05-19 07:03] LABS: Anion Gap 9 (5-15); Calcium 9.0 mg/dL (8.7-10.4); Carbon Dioxide 30 mmol/L (20-31)
[2025-05-19 07:06] LABS: Hematocrit 32.6 % (41.0-53.0); Hemoglobin 11.2 g/dL (13.5-17.5); Mean Corpuscular Hemoglobin 29.9 pg (28.0-32.0); Mean Corpuscular Volume 87.2 fL (80.0-100.0); Nucleated Red Blood Cells % 0.2 %
[2025-05-19 07:08] LABS: BUN/Creatinine Ratio 14.4 (10.0-20.0); Blood Urea Nitrogen 13 mg/dL (9-23)
[2025-05-19 07:11] LABS: Glucose 144 mg/dL (74-106)
[2025-05-19] MEDS: INSULIN LANTUS (GLARGINE) 1 /0.01ml (100units/ml) SC SCH (09:11)
--- NOTE | 2025-05-19 09:48 | DVHPN2 ---
Subjective Patient is a 64-year-old male with past medical history of T2DM, presented to [facility] ED with complaint of progressively worsening wound on the left foot. He first noticed a reddish spot on the dorsal surface of the left foot approximately 9 days ago. The lesion has more enlarged and painful, 3 days ago, developed blackish discoloration with associated weeping wounds. 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 He has also not taken any medications for an extended period. He denies fever, chills, or recent trauma to the area. No known insect bites or new footwear. No prior similar episodes. On evaluation in the ED, patient is febrile, tachycardic, and BP is148/82 mmHg. Initial labs show WBC 12.0, serum glucose 289 and ALP 158. Left foot CT shows Extensive dorsal soft tissue thickening throughout the midfoot and forefoot. The patient was started on IV antibiotics and Insulin. Patient is admitted for further evaluation and management. Changes from previous H/P or p: No Changes Objective Vitals Vital Signs Date Time Temp Pulse Resp B/P (MAP) Pulse Ox O2 Delivery O2 Flow Rate FiO2 05/19/25 08:56 110/66 05/19/25 08:38 98.0 73 20 95 98.0 05/18/25 20:00 Room Air* 0 21 Intake/Output Intake and Output 05/19/25 07:00 Intake Total 1560 ml Output Total 200 ml Balance 1360 ml Intake Oral 1260 ml IV Total 300 ml Output Urine Total 200 ml # Voids 4 # Bowel Movements 1 Exam Dermatological: Skin is dry with mild erythema and some maceration around the wound site No gross deformities noted Mild non-pitting edema present bilaterally Left foot dorsal wound with significant necrosis and purulent drainage Vascular: Dorsalis pedis and posterior tibial pulses are 1+ bilaterally Capillary refill is under 2 seconds Skin temperature is warm bilaterally Neurologic: Protective sensation is absent on the plantar forefoot bilaterally Monofilament testing reveals decreased sensation in multiple plantar sites Musculoskeletal: Range of motion at the ankle and MTP joints is within normal limits. Strength is 5/5 in all tested muscle groups. Gait is antalgic due to offloading of the affected limb. Medications Current Medications Medications Dose Ordered Sig/Frederick Route Start Time Stop Time Status Last Admin Dose Admin Sodium Chloride 10 ml Q8HR IV 05/14/25 06:00 05/19/25 05:40 10 ML Acetaminophen/ Hydrocodone Bitart 1 tab Q4HP PRN PO 05/14/25 00:45 05/18/25 20:10 1 TAB Enoxaparin Sodium 40 mg DAILY SC 05/14/25 10:00 05/18/25 10:06 40 MG Losartan Potassium 25 mg DAILY PO 05/14/25 10:00 05/19/25 08:56 25 MG Hydromorphone HCl 0.5 mg Q4HPRN PRN IV 05/14/25 00:45 05/16/25 11:20 0.5 MG Diagnostic Test (Pha) 1 strip Q6HR 05/14/25 06:00 05/19/25 05:40 1 STRIP Insulin Human Regular Q6HR SC 05/14/25 06:00 05/19/25 06:59 3 UNITS Dextrose 50 ml UD PRN IV 05/14/25 00:45 Atorvastatin Calcium 80 mg HS PO 05/14/25 22:00 05/18/25 21:03 80 MG Cefepime HCl 50 ml @ 12.5 mls/hr Q8H IV 05/15/25 19:00 05/19/25 04:56 12.5 MLS/HR Insulin Glargine 20 units DAILY@1000 SC 05/19/25 10:00 05/19/25 09:11 20 UNITS Laboratory Results Laboratory Tests 05/19/25 05:28 Chemistry Test 05/19/25 05:28 Calcium Level 9.0 mg/dL (8.7-10.4) Urinalysis Test 05/14/25 12:09 Urine Color Light-yellow (Yellow) Urine Clarity Clear (Clear) Urine pH 6.0 (5.0-9.0) Urine Specific [place] 1.016 (1.001-1.035) Urine Protein Trace (Negative) H Urine Ketones 1+ (Negative) H Urine Blood Negative /uL (Negative) Urine Nitrite Negative (Negative) Urine Bilirubin Negative (Negative) Urine Urobilinogen 2 mg/dL (Negative) H Urine Leukocyte Esterase Negative /uL (Negative) Urine RBC 1 /hpf (0 - 3) Urine Microscopic WBC < 1 /HPF (0-3) Urine Squamous Epithelial Cells None seen /hpf (<5) Urine Bacteria None seen /hpf (None Seen) Urine Glucose 4+ mg/dL (Normal) H Microbiology Microbiology Date/Time Source Procedure Growth Status 05/14/25 12:15 Foot Left Gram Stain - Final Resulted 05/14/25 12:15 Foot Left Anaerobic Culture - Preliminary Resulted 05/14/25 12:15 Aerobic Culture - Final Acinetobacter baumannii Resulted 05/13/25 19:59 Blood Blood Culture - Final NO GROWTH AFTER 5 DAYS OF INCUBATION. Complete Assessment/Plan Assessment/Plan ASSESSMENT: Patient is a 64 year old seen on the floor follow up s/p foot I&D PLAN: - The patients chart was reviewed, clinical findings were discussed with the patient, the etiologies of the conditions were discussed in detail, and a treatment plan was agreed to at this time, with both oral and written instructions provided. - reviewed advanced imaging - reviewed all of the labs and pathology - discussed plan is to perform a subsequent incision and drainage - patient has been NPO since midnight - take him to the OR today - it was determined that multiple I&Ds will be necessary to save the limb - can weightbear as tolerated in postoperative shoe - can be discharged home on PO abx All questions were answered and concerns addressed to the patient's satisfaction. The patient was given the phone number to the clinic and was told how to make contact with the clinic should any concerns or questions arise. Patient understands that if any questions or concerns arise prior to the next appointment, we should be contacted immediately. FOLLOW-UP: Continue to follow while inpatient Plan discussed with: Patient Problem List: (1) Diabetic foot infection Visit Coding Podiatry Date of Service if different f: May 19, 2025 Billing Provider: BRUCE GIBBS DPM Podiatry Common Visit Codes: [id number] INP/OBS CARE(HIGH) BRUCE GIBBS DPM May 19, 2025 09:48
[2025-05-19] MEDS ORDERED: fentaNYL CITRATE 100 MCG/2 ML VL ONE (11:04)
[2025-05-19] MEDS ORDERED: PROPOFOL 10 MG/ML 20 ML IV ONE (11:04)
[2025-05-19] MEDS ORDERED: KETAMINE 50mg/ML 1ml syringe ONE (11:04)
[2025-05-19] MEDS ORDERED: SODIUM CHLORIDE LOCK 10 ML ONE (11:04)
[2025-05-19] MEDS ORDERED: MIDAZOLAM HCL 2MG/2ML 2ml VIAL (1mg/ml) ONE (11:04)
[2025-05-19] MEDS ORDERED: LIDOCAINE 1% (LOCAL ANESTH.) PF 5ml SDV ONE (11:04)
[2025-05-19] MEDS ORDERED: ONDANSETRON HCL 4 MG/2 ML VIAL ONE (11:04)
[2025-05-19] MEDS ORDERED: METOCLOPRAMIDE HCL 5MG/ml INJ 2ml VIAL IV PRN (11:45)
[2025-05-19] MEDS ORDERED: HYDROmorphone HCL 2 MG/ML VL/or syr IV PRN (11:45)
[2025-05-19] MEDS ORDERED: MORPHINE SULFATE INJ 2 MG/ml SYRG IV PRN (11:45)
[2025-05-19] MEDS ORDERED: MORPHINE SULFATE 4 MG/ML SYR/VIAL IV PRN (11:45)
[2025-05-19] MEDS: LIDOCAINE 1% HCL (LOCAL ANESTH.) INJ 20ML MDV ONE (12:08)
--- NOTE | 2025-05-19 12:19 | DVHOP2 ---
Operative Report - 2 Report Details Date: 05/19/25 Preop Diagnosis: 1. Left foot necrotizing fasciitis 2. Left foot cellulitis 3. Left foot abscess 4. Left foot diabetic infection Postop Diagnosis: Same as preop Surgeon: Bruce Gibbs MD Anesthesiologist: See anesthesia Anesthesia: Mac Consent: The patient was informed of the risks and benefits of the procedure. These include but are not limited to complications of anesthesia, postoperative infection, incomplete relief of symptoms, recurrence of symptoms, damage to blood vessels, nerves and tendons, deep venous thrombosis, pulmonary embolism and possible need for repeat surgery in the future. Complications: None Estimated Blood Loss: Minimal Fluids: See anesthesia Findings: Consistent with the diagnosis Indications for Surgery: Worsening foot wound Name of Procedure Performed 1. Left foot I&D (81000) Procedure Details Procedure Details: PRE-PROCEDURE INFORMATION: In the pre-op holding area, the extremity to be operated on was clearly marked and the patient verified correct laterality of the marking. The patient was transferred to the OR table and placed in a supine position. A timeout was performed in which identification of the correct patient, procedure, location, and materials was done. The left foot and leg were prepped and draped in normal sterile fashion. DESCRIPTION OF PROCEDURE: Attention was directed to the left foot where previous incision was made. An incision was made over this area and was deepened through blunt dissection. The incision was deepened to the level of abscess and bone. Care was taken to the dissection to avoid any neurovascular and tendinous structures. The incision was deepened to the bone, and the abscess appeared to be purulent fluid consistent with pus. The cortices of the bone was then removed with rongeur an all necrotic tissue. After the abscess was drained, the area was irrigated with 3 L normal saline using cysto tubing. The area was then inspected and any areas of tracking, especially along the tendons were also drained. The wound was packed with Betadine-soaked gauze. POSTOPERATIVE INFORMATION: The patient tolerated the above noted procedure and anesthesia well and was transferred to the PACU with vital signs stable, and vascular status intact with capillary refill intact to all digits. Discharge home with PO abx. WBAT in post op shoe. Recommend wound vac once insurance approved. Condition Good Disposition Still a Patient Visit Coding Podiatry Date of Service if different f: May 19, 2025 Billing Provider: BRUCE GIBBS DPM Podiatry Common Visit Codes: PROCEDURE ONLY BRUCE GIBBS DPM May 19, 2025 12:19
[2025-05-19] MEDS: HYDROmorphone HCL 2 MG/ML VL/or syr IV PRN (12:35)
[2025-05-19] MEDS: KETOROLAC TROMETH 30 MG/ML 1ML VIAL IV ONE (12:41)
--- NOTE | 2025-05-19 19:51 | DVHPNRES ---
Progress Note Date Seen: May 19, 2025 Resident Creating Document: RUBY EDWARD RESIDENT Has the PT tested + for MRSA If YES, has PT been informed?: No Medical Necessity Reason Pt with a Central, PICC or Fol: No Subjective Review of Systems Mr. Steve Canas, is a 64-year-old male, with past medical history of recently diagnosed HTN and DM type 2. The patient presented to [facility] ED with a chief complaint of 9 days of progressively worsening wound localized on the dorsum of left foot, associated with 10/10 burning/stabbing like pain, that irradiates up toward the left leg that worsen with walking and does not has alleviating factors. The left foot wound is associated with edema, yellowish foul smell discharge, erythema and warmth that extends to up to the middle part of the left leg. The patient reports 3 days prior the visit to the ED he start noticing a black eschar over the wound, and he had subjective fever, chills and malaise, this prompted his visit to the ED. On further questioning the patient reports he was newly diagnosed with DM2 and he is not taking any medication. 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 He denies recent trauma to the area, insect bites or new footwear. No prior similar episodes. On evaluation in the ED, patient is febrile, tachycardia, and BP is148/82 mmHg. Initial labs show WBC 12.0, serum glucose 289 and ALP 158. Left foot CT shows Extensive dorsal soft tissue thickening throughout the midfoot and forefoot. The patient was started on IV antibiotics and Insulin. Patient was admitted for further evaluation and management. Past medical history as above. Past Surgical History: None Family History: DM2 Social history: Smoke: No, ALCOHOL: occasional. Drugs: None. Lives: with Family Hospital course: On 05/14/25 the patient was evaluated and examined at bedside. The VS, labs and chart was reviewed. The patient reports he has chills, his left foot pain is better after analgesia 7/10. Bilateral artery studies showed: Diffuse atherosclerotic disease. No evidence of hemodynamically significant focal stenosis or occlusion. Bilateral leg doppler is negative for DVT. CT of the left leg showed: Extensive dorsal soft tissue thickening throughout the midfoot and forefoot. No obvious fluid collection or deep space infection, although CT is neither sensitive nor specific. MRI of the left foot showed:Diffuse soft tissue edema in the forefoot especially in between the 1st and 2nd webspace where there is fluid. Findings are concerning for cellulitis with the presence of abscess not excluded. No MR evidence of osteomyelitis in the left foot. Wound and blood cultures were ordered. The patient is receiving IV antibiotics: ceftriaxone and vancomycin. Podiatry and wound consult were placed. We will continue following this patient's progress. On 05/15/25 the patient was evaluated and examined at bedside. The VS, labs and chart was reviewed. The patient reports he has chills and fever 100F during the night. ERS and CRP are elevated. The patient reports his left foot pain is better after analgesia 12/22. Podiatry saw the patient on 05/14/25, and performed I&D with wound cultures, and informed that the patient might need more I&D to preserve the limb. The patient is receiving IV antibiotics: cefepime and vancomycin. Cultures samples were received by the laboratory/microbiology. We will continue following this patient's progress. On 05/16/25, patient was seen and evaluated at bedside. Vitals signs, labs and chart were reviewed. The patient mentions he has mild pain in his left leg. Preliminary wound culture grew Many growth: Beta- Hemolytic Group B Streptococcus and Few growth:Gram Negative Rods. We will continue with the same antibiotics and wait for sensitivity report and podiatry recommendations. On 05/17/25 the patient was evaluated and examined at bedside.The VS, labs and chart was reviewed. The patient reports feeling better, no fever during the night, his pain has improved to 4/10. Podiatry is on board, I&D will be performed today. The patient is receiving IV antibiotics: ceftriaxone and vancomycin. Cultures samples were received by the laboratory/microbiology. The wound culture showed: growth of Acinetobacter baumannii.We will continue following this patient's progress. On 05/18/25 the patient was evaluated and examined at bedside. The VS, labs and chart was reviewed. The patient reports feeling better, no fever last night. His pain has improved to 4/10. Podiatry is on board, 3erd I&D will be performed tomorrow 05/19/25. The patient is receiving IV antibiotics: cefepime and vancomycin. Cultures samples were received by the laboratory/microbiology, the wound culture showed: growth of Acinetobacter baumannii, that is sensitive to cefepime. We will continue following this patient's progress. On 05/19/25 the patient was evaluated and examined at bedside. The VS, labs and chart was reviewed. The patient reports feeling better, no fever during the night, his pain is well controlled with analgesia 3/10, he does not has new complaints. The patient continues receiving IV antibiotics. Podiatry is on board, a 3erd I&D was performed today. We will continue following this patient's progress. ROS General: No fever, chills or malaise. Eyes: No Pain, No Vision change, No Conjunctivae inflammation, No Eyelid inflammation, No Redness ENT: No Ear pain, No Ear discharge, No Nose pain, No Nose discharge, No Nose congestion, No Mouth pain, No Mouth swelling, No Throat pain, No Throat swelling Cardiovascular: No Chest Pain, No Palpitations, No Orthopnea, No Paroxysmal No Dyspnea, No Edema, No Lt Headedness Respiratory: No Cough, No Dry, No Shortness of breath, No SOB with exertion, No Wheezing, No Hemoptysis, No Pleuritic Pain, No Sputum Gastrointestinal: No Nausea, No Vomiting, No Abdominal Pain, No Diarrhea, No Constipation, No Melena, No Hematochezia Genitourinary: No Dysuria, No Frequency, No Incontinence, No Hematuria, No Retention Musculoskeletal: Improving of the pain on the left foot and leg 3/10, edema. erythema and warmth. No other, No neck pain, No shoulder pain, No arm pain, No back pain, No hand pain. Skin: right leg petcheias over ankle improving. No Rash, No Lesions, No Jaundice, No Bruising, No Other. Wound on the left foot dorsum. Coded Allergies: NO KNOWN ALLERGIES (Unverified , 05/13/25) Objective vital signs Vital Sign Date Time Temp Pulse Resp B/P (MAP) Pulse Ox O2 Delivery O2 Flow Rate FiO2 05/19/25 17:30 98.1 73 18 111/73 (86) 95 98.1 05/19/25 12:19 Room Air 0 05/19/25 12:19 100 Total Intake and Output 05/18/25 05/18/25 05/19/25 15:00 23:00 07:00 Intake Total 860 ml 700 ml Output Total 200 ml Balance 860 ml 500 ml medications Current Medications Medications Dose Ordered Sig/Freder[place] Route Start Time Stop Time Status Last Admin Dose Admin Sodium Chloride 10 ml Q8HR IV 05/14/25 06:00 05/19/25 05:40 10 ML Acetaminophen/ Hydrocodone Bitart 1 tab Q4HP PRN PO 05/14/25 00:45 05/18/25 20:10 1 TAB Enoxaparin Sodium 40 mg DAILY SC 05/14/25 10:00 05/18/25 10:06 40 MG Losartan Potassium 25 mg DAILY PO 05/14/25 10:00 05/19/25 08:56 25 MG Hydromorphone HCl 0.5 mg Q4HPRN PRN IV 05/14/25 00:45 05/16/25 11:20 0.5 MG Diagnostic Test (Pha) 1 strip Q6HR 05/14/25 06:00 05/19/25 17:22 1 STRIP Insulin Human Regular Q6HR SC 05/14/25 06:00 05/19/25 17:22 6 UNITS Dextrose 50 ml UD PRN IV 05/14/25 00:45 Atorvastatin Calcium 80 mg HS PO 05/14/25 22:00 05/18/25 21:03 80 MG Cefepime HCl 50 ml @ 12.5 mls/hr Q8H IV 05/15/25 19:00 05/19/25 18:12 12.5 MLS/HR Insulin Glargine 20 units DAILY@1000 SC 05/19/25 10:00 05/19/25 09:11 20 UNITS Examination General Appearance: Cooperative. Well developed. Not in acute distress. Head Exam: Normal inspection Neck Exam: Normal inspection. Non-tender. Normal alignment Pulmonary/Respiratory: Chest non-tender. Clear bilateral breath sounds, no crackles, no wheezing. Cardiovascular/Chest: Regular rate and rhythm. No murmurs. No JVD. Peripheral Pulses: 2+ Radial (R). 2+ Radial (L). 2+ Pedal (R). 2+ Pedal (L) Abdominal Exam: Normal bowel sounds. Soft. normal abdomen, no visible veins, Nontender. No hepatospenomegaly. No masses Lower extremities: Left leg: mild erythema, erythema on the left leg has improved. , mild edema and warmth, the left foot is covered by clean dressing. The Sensation is preserved, peripheral pulses are present, capillary refill<2 sec. patient can move the toes. Right lower extremity: right ankle multiple petechiae have improved. No edema or erythema, pulses present, capillary refill <2 sec Neuro/Mental Status: A&O x3. Coherent. Thoughts/Psych: Normal thought pattern. Appropriate mood and affect. laboratory and microbiology Laboratory Tests 05/19/25 05:28 Test 05/19/25 05:28 Range/Units Serum Glucose 144 H 74-106 mg/dL Microbiology Date/Time Source Procedure Growth Status 05/14/25 12:15 Foot Left Gram Stain - Final Resulted 05/14/25 12:15 Foot Left Anaerobic Culture - Preliminary Resulted 05/14/25 12:15 Aerobic Culture - Final Acinetobacter baumannii Resulted 05/13/25 19:59 Blood Blood Culture - Final NO GROWTH AFTER 5 DAYS OF INCUBATION. Complete Problem List/Assessment/Plan Problem List/Assessment/Plan #Sepsis secondary to acute diabetic left foot acute cellulitis #Acute Osteomyelitis was ruled out #Acute Left foot abscess #Acute Left foot narcotizing facitis. MRI left foot ordered: Diffuse soft tissue edema in the forefoot especially in between the 1st and 2nd webspace where there is fluid. Findings are concerning for cellulitis with the presence of abscess not excluded. No MR evidence of osteomyelitis in the left foot. CT left foot : Extensive dorsal soft tissue thickening throughout the midfoot and forefoot. No obvious fluid collection or deep space infection. Wound culture: Acinetobacter baumannii: sensitive to cefepime Wound consult: completed Podiatry consult: performed I&D on 05/14/25 and 05/17/25. 3rd I&D performed on 05/19/25 IV NS 1,000 MLS/HR D/C Vancomycin IV per pharmacy, due to sensitivity test Cefepime 1GM/50ML IV q8h D/C Clindamycin IV q8h pain management with [place] 1 TAB PO q4h and Dilaudid 0.5 MG IV q4h prn Moderate Insulin SS SC q6h UA and UDS: resulted. Lactic acid:1.0 ESR and CRP: elevated. #Type 2 diabetes mellitus with hyperglycemia, uncontrolled HbA1: 12.4% Moderate Insulin SS SC q6h #Hypertensive heart disease with systolic/diastolic failure Losartan 25 MG PO daily #Ruled out DVT Extremity venous sturdy: No sonographic evidence of left lower extremity deep venous thrombosis. Duplex Scan lower extremity artery: Diffuse atherosclerotic disease. No evidence of hemodynamically significant focal stenosis or occlusion. #Acute Hypokalemia K: 3.4 Replenish K: 4.4 05/19/25 DVT prophylaxis Diet: Cardiac diet and low carbohydrate diet Goals of care discussed with the patient for more than 35 minutes: Code Status: Full code PCP: No established, the patient will follow up with D/C clinic Case discussed with Dr. Steen Plan discussed with: Patient My Orders My Orders Orders - RUBY EDWARD RESIDENT Procedure Category Date Status Time Communication Order ORDERS 05/18/25 Transmitted 19:55 Dietary Evaluation Review Comments: 1) Initiate MVI @ 1 tb qd 2) Initiate vitamin C @ 500 mg bid and zinc sulfate @ 220 mg qd for 7 days 3) Continue 45g CCHO cardiac diet 4) Refer to outpatient RD/CDCES for diabetes education 5) Follow-up with podiatry 6) Continue to monitor I&O, labs, and skin integrity Expected Outcomes/Goals: 1) appetite and labs to improve 2) wound to improve 3) f/u in 3-5 days Date of Service: May 19, 2025 Billing Provider: KATHRIN STEEN MD Common Visit Codes: [id number] INP/OBS CARE(HIGH) RUBY EDWARD RESIDENT May 19, 2025 19:51
[2025-05-20] VITALS (7 sets, daily range): BP systolic 110–152; BP diastolic 68–84; PULSE 68–86; RESP 17–20; TEMP 98–98.8; O2SAT 94–98
--- NOTE | 2025-05-20 22:32 | DVHPNRES ---
Progress Note Date Seen: May 20, 2025 Resident Creating Document: RUBY EDWARD RESIDENT Has the PT tested + for MRSA If YES, has PT been informed?: No Medical Necessity Reason Pt with a Central, PICC or Fol: No Subjective Review of Systems Mr. Steve Canas, is a 64-year-old male, with past medical history of recently diagnosed HTN and DM type 2. The patient presented to [facility] ED with a chief complaint of 9 days of progressively worsening wound localized on the dorsum of left foot, associated with 10/10 burning/stabbing like pain, that irradiates up toward the left leg that worsen with walking and does not has alleviating factors. The left foot wound is associated with edema, yellowish foul smell discharge, erythema and warmth that extends to up to the middle part of the left leg. The patient reports 3 days prior the visit to the ED he start noticing a black eschar over the wound, and he had subjective fever, chills and malaise, this prompted his visit to the ED. On further questioning the patient reports he was newly diagnosed with DM2 and he is not taking any medication. 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 He denies recent trauma to the area, insect bites or new footwear. No prior similar episodes. On evaluation in the ED, patient is febrile, tachycardia, and BP is148/82 mmHg. Initial labs show WBC 12.0, serum glucose 289 and ALP 158. Left foot CT shows Extensive dorsal soft tissue thickening throughout the midfoot and forefoot. The patient was started on IV antibiotics and Insulin. Patient was admitted for further evaluation and management. Past medical history as above. Past Surgical History: None Family History: DM2 Social history: Smoke: No, ALCOHOL: occasional. Drugs: None. Lives: with Family Hospital course: On 05/14/25 the patient was evaluated and examined at bedside. The VS, labs and chart was reviewed. The patient reports he has chills, his left foot pain is better after analgesia 7/10. Bilateral artery studies showed: Diffuse atherosclerotic disease. No evidence of hemodynamically significant focal stenosis or occlusion. Bilateral leg doppler is negative for DVT. CT of the left leg showed: Extensive dorsal soft tissue thickening throughout the midfoot and forefoot. No obvious fluid collection or deep space infection, although CT is neither sensitive nor specific. MRI of the left foot showed:Diffuse soft tissue edema in the forefoot especially in between the 1st and 2nd webspace where there is fluid. Findings are concerning for cellulitis with the presence of abscess not excluded. No MR evidence of osteomyelitis in the left foot. Wound and blood cultures were ordered. The patient is receiving IV antibiotics: ceftriaxone and vancomycin. Podiatry and wound consult were placed. We will continue following this patient's progress. On 05/15/25 the patient was evaluated and examined at bedside. The VS, labs and chart was reviewed. The patient reports he has chills and fever 100F during the night. ERS and CRP are elevated. The patient reports his left foot pain is better after analgesia 12/22. Podiatry saw the patient on 05/14/25, and performed I&D with wound cultures, and informed that the patient might need more I&D to preserve the limb. The patient is receiving IV antibiotics: cefepime and vancomycin. Cultures samples were received by the laboratory/microbiology. We will continue following this patient's progress. On 05/16/25, patient was seen and evaluated at bedside. Vitals signs, labs and chart were reviewed. The patient mentions he has mild pain in his left leg. Preliminary wound culture grew Many growth: Beta- Hemolytic Group B Streptococcus and Few growth:Gram Negative Rods. We will continue with the same antibiotics and wait for sensitivity report and podiatry recommendations. On 05/17/25 the patient was evaluated and examined at bedside.The VS, labs and chart was reviewed. The patient reports feeling better, no fever during the night, his pain has improved to 4/10. Podiatry is on board, I&D will be performed today. The patient is receiving IV antibiotics: ceftriaxone and vancomycin. Cultures samples were received by the laboratory/microbiology. The wound culture showed: growth of Acinetobacter baumannii.We will continue following this patient's progress. On 05/18/25 the patient was evaluated and examined at bedside. The VS, labs and chart was reviewed. The patient reports feeling better, no fever last night. His pain has improved to 4/10. Podiatry is on board, 3erd I&D will be performed tomorrow 05/19/25. The patient is receiving IV antibiotics: cefepime and vancomycin. Cultures samples were received by the laboratory/microbiology, the wound culture showed: growth of Acinetobacter baumannii, that is sensitive to cefepime. We will continue following this patient's progress. On 05/19/25 the patient was evaluated and examined at bedside. The VS, labs and chart was reviewed. The patient reports feeling better, no fever during the night, his pain is well controlled with analgesia 3/10, he does not has new complaints. The patient continues receiving IV antibiotics. Podiatry is on board, a 3erd I&D was performed today. We will continue following this patient's progress. On 05/20/25 the patient was evaluated and examined at bedside. The VS, labs and chart were reviewed. The patient is on his second day post 3rd I&D. The patient reports feeling better, afebril, his pain is well controlled with analgesia 3/10, he does not has new complaints. The patient continues receiving IV antibiotic: Cefepime IV. Podiatry is on board, they recommend wound vac opon discharge, a new social service consult was placed and a career development coordinator/teacher consult was placed to arranged wound vac, antibiotics and home health for wound care. The patient wants to explore his options of insurance. We will continue following this patient's progress. ROS General: No fever, chills or malaise. Eyes: No Pain, No Vision change, No Conjunctivae inflammation, No Eyelid inflammation, No Redness ENT: No Ear pain, No Ear discharge, No Nose pain, No Nose discharge, No Nose congestion, No Mouth pain, No Mouth swelling, No Throat pain, No Throat swelling Cardiovascular: No Chest Pain, No Palpitations, No Orthopnea, No Paroxysmal No Dyspnea, No Edema, No Lt Headedness Respiratory: No Cough, No Dry, No Shortness of breath, No SOB with exertion, No Wheezing, No Hemoptysis, No Pleuritic Pain, No Sputum Gastrointestinal: No Nausea, No Vomiting, No Abdominal Pain, No Diarrhea, No Constipation, No Melena, No Hematochezia Genitourinary: No Dysuria, No Frequency, No Incontinence, No Hematuria, No Retention Musculoskeletal: Improving of the pain on the left foot and leg 3/10, edema. erythema and warmth. No other, No neck pain, No shoulder pain, No arm pain, No back pain, No hand pain. Skin: right leg petcheias over ankle improving. No Rash, No Lesions, No Jaundice, No Bruising, No Other. Wound on the left foot dorsum. Coded Allergies: NO KNOWN ALLERGIES (Unverified , 05/13/25) Objective vital signs Vital Sign Date Time Temp Pulse Resp B/P (MAP) Pulse Ox O2 Delivery O2 Flow Rate FiO2 05/20/25 22:16 81 16 122/83 05/20/25 21:00 98.2 98 98.2 05/20/25 20:00 Room Air* 0 21 Total Intake and Output 05/19/25 05/19/25 05/20/25 15:00 23:00 07:00 Intake Total 387.5 ml 650 ml 750 ml Balance 387.5 ml 650 ml 750 ml medications Current Medications Medications Dose Ordered Sig/Frederick Route Start Time Stop Time Status Last Admin Dose Admin Sodium Chloride 10 ml Q8HR IV 05/14/25 06:00 05/20/25 14:35 10 ML Acetaminophen/ Hydrocodone Bitart 1 tab Q4HP PRN PO 05/14/25 00:45 05/20/25 00:00 1 TAB Enoxaparin Sodium 40 mg DAILY SC 05/14/25 10:00 05/20/25 10:04 40 MG Losartan Potassium 25 mg DAILY PO 05/14/25 10:00 05/20/25 10:04 25 MG Hydromorphone HCl 0.5 mg Q4HPRN PRN IV 05/14/25 00:45 05/20/25 22:16 0.5 MG Diagnostic Test (Pha) 1 strip Q6HR 05/14/25 06:00 05/20/25 17:47 1 STRIP Insulin Human Regular Q6HR SC 05/14/25 06:00 05/20/25 20:42 6 UNITS Dextrose 50 ml UD PRN IV 05/14/25 00:45 Atorvastatin Calcium 80 mg HS PO 05/14/25 22:00 05/20/25 20:54 80 MG Cefepime HCl 50 ml @ 12.5 mls/hr Q8H IV 05/15/25 19:00 05/20/25 18:06 12.5 MLS/HR Insulin Glargine 20 units DAILY@1000 SC 05/19/25 10:00 05/20/25 10:16 20 UNITS Examination General Appearance: Cooperative. Well developed. Not in acute distress. Head Exam: Normal inspection Neck Exam: Normal inspection. Non-tender. Normal alignment Pulmonary/Respiratory: Chest non-tender. Clear bilateral breath sounds, no crackles, no wheezing. Cardiovascular/Chest: Regular rate and rhythm. No murmurs. No JVD. Peripheral Pulses: 2+ Radial (R). 2+ Radial (L). 2+ Pedal (R). 2+ Pedal (L) Abdominal Exam: Normal bowel sounds. Soft. normal abdomen, no visible veins, Nontender. No hepatospenomegaly. No masses Lower extremities: Left leg: mild erythema, erythema on the left leg has improved. , mild edema and warmth, the left foot is covered by clean dressing. The Sensation is preserved, peripheral pulses are present, capillary refill<2 sec. patient can move the toes. Right lower extremity: right ankle multiple petechiae have improved. No edema or erythema, pulses present, capillary refill <2 sec Neuro/Mental Status: A&O x3. Coherent. Thoughts/Psych: Normal thought pattern. Appropriate mood and affect. laboratory and microbiology Laboratory Tests 05/19/25 05:28 Test 05/19/25 05:28 Range/Units Serum Glucose 144 H 74-106 mg/dL Microbiology Date/Time Source Procedure Growth Status 05/14/25 12:15 Foot Left Gram Stain - Final Complete 05/14/25 12:15 Foot Left Anaerobic Culture - Final Complete 05/14/25 12:15 Aerobic Culture - Final Acinetobacter baumannii Complete 05/13/25 19:59 Blood Blood Culture - Final NO GROWTH AFTER 5 DAYS OF INCUBATION. Complete Problem List/Assessment/Plan Problem List/Assessment/Plan #Sepsis secondary to acute diabetic left foot acute cellulitis #Acute Osteomyelitis was ruled out #Acute Left foot abscess #Acute Left foot narcotizing facitis. MRI left foot: no osteomyelitis. Wound culture: Acinetobacter baumannii: sensitive to cefepime Wound consult: ongoing. Podiatry consult: performed I&D on 05/14/25 and 05/17/25. 3rd I&D performed on 05/19/25 IV NS 1,000 MLS/HR Cefepime 1GM/50ML IV q8h Pain management with [place] 1 TAB PO q4h and Dilaudid 0.5 MG IV q4h prn #Type 2 diabetes mellitus with hyperglycemia, uncontrolled HbA1: 12.4% Moderate Insulin SS SC q6h #Hypertensive heart disease with systolic/diastolic failure Losartan 25 MG PO daily #Ruled out DVT Extremity venous sturdy: No sonographic evidence of left lower extremity deep venous thrombosis. Duplex Scan lower extremity artery: Diffuse atherosclerotic disease. No evidence of hemodynamically significant focal stenosis or occlusion. #Acute Hypokalemia K: 3.4 Replenish K: 4.4 05/19/25 DVT prophylaxis Diet: Cardiac diet and low carbohydrate diet Goals of care discussed with the patient for more than 35 minutes: Code Status: Full code PCP: No established, the patient will follow up with D/C clinic Case discussed with Dr. Steen Plan discussed with: Patient My Orders My Orders Orders - RUBY EDWARD RESIDENT Procedure Category Date Status Time * Park Ranger CONS 05/20/25 Transmitted Consult Insert Midline ORDERS 05/20/25 Transmitted 06:56 Consult Care CONS 05/20/25 Transmitted Coordinator Dietary Evaluation Review Comments: 1) Initiate MVI @ 1 tb qd 2) Initiate vitamin C @ 500 mg bid and zinc sulfate @ 220 mg qd for 7 days 3) Continue 45g CCHO cardiac diet 4) Refer to outpatient RD/CD[facility] for diabetes education 5) Follow-up with podiatry 6) Continue to monitor I&O, labs, and skin integrity Expected Outcomes/Goals: 1) appetite and labs to improve 2) wound to improve 3) f/u in 3-5 days Date of Service: May 20, 2025 Billing Provider: KATHRIN STEEN MD Common Visit Codes: [id number] INP/OBS CARE(HIGH) RUBY EDWARD RESIDENT May 20, 2025 22:32
[2025-05-21 01:00] VITALS: BP 121/75; PULSE 73; RESP 16; TEMP 97.6; O2SAT 97
[2025-05-21 05:00] VITALS: BP 97/68; PULSE 75; RESP 17; TEMP 98; O2SAT 98
[2025-05-21 08:42] VITALS: BP 110/46; PULSE 78; RESP 17; TEMP 98.3; O2SAT 94
[2025-05-21] MEDS ORDERED: METF-490 PO (12:42)
[2025-05-21] MEDS ORDERED: ATOR-47 PO (12:42)
[2025-05-21] MEDS ORDERED: INSUINJ37 SC (12:42)
[2025-05-21] MEDS ORDERED: LOSA-533 PO (12:42)
[2025-05-21 12:43] VITALS: BP 125/64; PULSE 77; RESP 18; TEMP 98.2; O2SAT 96
[2025-05-21 16:31] VITALS: BP 109/71; PULSE 74; RESP 17; TEMP 98.2; O2SAT 94
--- NOTE | 2025-05-21 16:46 | DVHDSRES ---
Discharge Summary Date of Admission Resident Creating Document: RUBY EDWARD RESIDENT May 13, 2025 at 23:54 Date of Discharge: May 21, 2025 Admitting Diagnosis #Sepsis due to acute diabetic left foot cellulitis associated with uncontrolled type 2 DM. #Possible Acute Osteomyelitis #Acute Left foot abscess #Uncontrolled type 2 DM. Wounds: Left foot diabetic ulcer Labs/Diagnostic Data: Laboratory Results Test 05/21/25 11:42 05/19/25 05:28 05/18/25 14:40 05/18/25 07:00 POC Glucose 223 mg/dl (70-106) White Blood Count 8.5 10^3/uL (4.4-10.8) Red Blood Count 3.74 10^6/uL (4.5-5.90) Hemoglobin 11.2 g/dL (13.5-17.5) Hematocrit 32.6 % (41.0-53.0) Mean Corpuscular Volume 87.2 fL (80.0-100.0) Mean Corpuscular Hemoglobin 29.9 pg (28.0-32.0) Mean Corpuscular Hemoglobin Concent 34.3 g/dL (32.0-36.0) Red Cell Distribution Width 13.4 % (11.8-14.3) Platelet Count 458 10^3/uL (140-450) Mean Platelet Volume 8.6 fL (6.9-10.8) Neutrophils (%) (Auto) 68.8 % (37.0-80.0) Lymphocytes (%) (Auto) 15.7 % (10.0-50.0) Monocytes (%) (Auto) 11.4 % (0.0-12.0) Eosinophils (%) (Auto) 3.0 % (0.0-7.0) Basophils (%) (Auto) 1.1 % (0.0-2.0) Neutrophils # (Auto) 5.8 10 ^3/uL (1.6-8.6) Lymphocytes # (Auto) 1.3 10 ^3/uL (0.4-5.4) Monocytes # (Auto) 1.0 10 ^3/uL (0-1.3) Eosinophils # (Auto) 0.3 10 ^3/uL (0-0.8) Basophils # (Auto) 0.1 10 ^3/uL (0-0.2) Nucleated Red Blood Cells 0.2 % Sodium Level 137 mmol/L (136-145) Potassium Level 4.4 mmol/L (3.5-5.1) Chloride Level 98 mmol/L (98-107) Carbon Dioxide Level 30 mmol/L (20-31) Anion Gap 9 (5-15) Blood Urea Nitrogen 13 mg/dL (9-23) Creatinine 0.90 mg/dL (0.700-1.30) Glomerular Filtration Rate Calc 96 mL/min (>90) BUN/Creatinine Ratio 14.4 (10.0-20.0) Serum Glucose 144 mg/dL (74-106) Calcium Level 9.0 mg/dL (8.7-10.4) Random Vancomycin Level 13.0 ug/mL (5-10) Vancomycin Level Trough 26.2 ug/mL (5-10) Test 05/15/25 04:43 05/14/25 12:09 05/14/25 05:24 Lactic Acid Level 1.0 mmol/L (0.4-2.0) Urine Color Light-yellow (Yellow) Urine Clarity Clear (Clear) Urine pH 6.0 (5.0-9.0) Urine Specific [place] 1.016 (1.001-1.035) Urine Protein Trace (Negative) Urine Ketones 1+ (Negative) Urine Blood Negative /uL (Negative) Urine Nitrite Negative (Negative) Urine Bilirubin Negative (Negative) Urine Urobilinogen 2 mg/dL (Negative) Urine Leukocyte Esterase Negative /uL (Negative) Urine RBC 1 /hpf (0 - 3) Urine Microscopic WBC < 1 /HPF (0-3) Urine Squamous Epithelial Cells None seen /hpf (<5) Urine Bacteria None seen /hpf (None Seen) Urine Glucose 4+ mg/dL (Normal) Urine Opiates Screen Neg (NEGATIVE) Urine Fentanyl Screen Neg (NEGATIVE) Urine Barbiturates Screen Neg (NEGATIVE) Urine Phencyclidine Screen Neg (NEGATIVE) Urine Amphetamines Screen Neg (NEGATIVE) Urine Benzodiazepines Screen Neg (NEGATIVE) Urine Cocaine Screen Neg (NEGATIVE) Urine Cannabinoids Screen Neg (NEGATIVE) Erythrocyte Sedimentation Rate 98 mm/hr (0-20) Prothrombin Time 12.3 sec (9.3-11.8) Prothrombin Time INR 1.18 (0.9-1.15) Activated Partial Thromboplast Time 34.9 SEC (24.5-34.5) Hemoglobin A1c 12.4 % A1C (<5.7) Magnesium Level 2.1 mg/dL (1.6-2.6) Total Bilirubin 0.5 mg/dL (0.2-1.0) Direct Bilirubin 0.2 mg/dL (<0.3) Aspartate Amino Transferase (AST) 13 U/L (13-40) Alanine Aminotransferase (ALT) 12 U/L (7-40) Alkaline Phosphatase 107 U/L (46-116) C-Reactive Protein High Sensitivity 15.34 mg/dL (<1.0) Total Protein 7.0 g/dL (5.7-8.2) Albumin 3.2 g/dL (3.2-4.8) Other Laboratory Tests 05/19/25 05:28 Brief Hx & Hospital Course: Mr. Steve Canas, is a 64-year-old male, with past medical history of recently diagnosed HTN and DM type 2. The patient presented to [facility] ED with a chief complaint of 9 days of progressively worsening wound localized on the dorsum of left foot, associated with 10/10 burning/stabbing like pain, that irradiates up toward the left leg that worsen with walking and does not has alleviating factors. The left foot wound is associated with edema, yellowish foul smell discharge, erythema and warmth that extends to up to the middle part of the left leg. The patient reports 3 days prior the visit to the ED he start noticing a black eschar over the wound, and he had subjective fever, chills and malaise, this prompted his visit to the ED. On further questioning the patient reports he was newly diagnosed with DM2 and he is not taking any medication. 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 He denies recent trauma to the area, insect bites or new footwear. No prior similar episodes. On evaluation in the ED, patient is febrile, tachycardia, and BP is148/82 mmHg. Initial labs show WBC 12.0, serum glucose 289 and ALP 158. Left foot CT shows Extensive dorsal soft tissue thickening throughout the midfoot and forefoot. The patient was started on IV antibiotics and Insulin. Patient was admitted for further evaluation and management. Past medical history as above. Past Surgical History: None Family History: DM2 Social history: Smoke: No, ALCOHOL: occasional. Drugs: None. Lives: with [facility] course: On 05/14/25 the patient was evaluated and examined at bedside. The VS, labs and chart was reviewed. The patient reports he has chills, his left foot pain is better after analgesia 7/10. Bilateral artery studies showed: Diffuse atherosclerotic disease. No evidence of hemodynamically significant focal stenosis or occlusion. Bilateral leg doppler is negative for DVT. CT of the left leg showed: Extensive dorsal soft tissue thickening throughout the midfoot and forefoot. No obvious fluid collection or deep space infection, although CT is neither sensitive nor specific. MRI of the left foot showed:Diffuse soft tissue edema in the forefoot especially in between the 1st and 2nd webspace where there is fluid. Findings are concerning for cellulitis with the presence of abscess not excluded. No MR evidence of osteomyelitis in the left foot. Wound and blood cultures were ordered. The patient is receiving IV antibiotics: ceftriaxone and vancomycin. Podiatry and wound consult were placed. We will continue following this patient's progress. On 05/15/25 the patient was evaluated and examined at bedside. The VS, labs and chart was reviewed. The patient reports he has chills and fever 100F during the night. ERS and CRP are elevated. The patient reports his left foot pain is better after analgesia 6/10. Podiatry saw the patient on 05/14/25, and performed I&D with wound cultures, and informed that the patient might need more I&D to preserve the limb. The patient is receiving IV antibiotics: cefepime and vancomycin. Cultures samples were received by the laboratory/microbiology. We will continue following this patient's progress. On 05/16/25, patient was seen and evaluated at bedside. Vitals signs, labs and chart were reviewed. The patient mentions he has mild pain in his left leg. Preliminary wound culture grew Many growth: Beta- Hemolytic Group B Streptococcus and Few growth:Gram Negative Rods. We will continue with the same antibiotics and wait for sensitivity report and podiatry recommendations. On 05/17/25 the patient was evaluated and examined at bedside.The VS, labs and chart was reviewed. The patient reports feeling better, no fever during the night, his pain has improved to 4/10. Podiatry is on board, I&D will be performed today. The patient is receiving IV antibiotics: ceftriaxone and vancomycin. Cultures samples were received by the laboratory/microbiology. The wound culture showed: growth of Acinetobacter baumannii.We will continue following this patient's progress. On 05/18/25 the patient was evaluated and examined at bedside. The VS, labs and chart was reviewed. The patient reports feeling better, no fever last night. His pain has improved to 4/10. Podiatry is on board, 3erd I&D will be performed tomorrow 05/19/25. The patient is receiving IV antibiotics: cefepime and vancomycin. Cultures samples were received by the laboratory/microbiology, the wound culture showed: growth of Acinetobacter baumannii, that is sensitive to cefepime. We will continue following this patient's progress. On 05/19/25 the patient was evaluated and examined at bedside. The VS, labs and chart was reviewed. The patient reports feeling better, no fever during the night, his pain is well controlled with analgesia 3/10, he does not has new complaints. The patient continues receiving IV antibiotics. Podiatry is on board, a 3erd I&D was performed today. We will continue following this patient's progress. On 05/20/25 the patient was evaluated and examined at bedside. The VS, labs and chart were reviewed. The patient is on his second day post 3rd I&D. The patient reports feeling better, afebril, his pain is well controlled with analgesia 3/10, he does not has new complaints. The patient continues receiving IV antibiotic: Cefepime IV. Podiatry is on board, they recommend wound vac upon discharge, a new social service consult was placed and a health care marketing specialist consult was placed to arranged wound vac, antibiotics and home health for wound care. The patient wants to explore his options of insurance. We will continue following this patient's progress. On 05/21/25 the patient was evaluated and examined at bedside. The VS, labs and chart were reviewed. The patient is on his third day post the 3rd I&D procedure. The patient reports feeling better, afebril, his pain is well controlled with analgesia 3/10, he does not has new complaints. The patient continues receiving IV antibiotic: Cefepime IV. Podiatry is on board, they recommend wound vac upon discharge, a new social service consult was placed to arranged wound vac, IV antibiotics (cefepime) and home health for left foot wound and wound-vac care. The patient reports he will pay out of pocket for all this services. Due to significant clinical improvement, the patient is being discharge today. ROS General: No fever, chills or malaise. Eyes: No Pain, No Vision change, No Conjunctivae inflammation, No Eyelid inflammation, No Redness ENT: No Ear pain, No Ear discharge, No Nose pain, No Nose discharge, No Nose congestion, No Mouth pain, No Mouth swelling, No Throat pain, No Throat swelling Cardiovascular: No Chest Pain, No Palpitations, No Orthopnea, No Paroxysmal No Dyspnea, No Edema, No Lt Headedness Respiratory: No Cough, No Dry, No Shortness of breath, No SOB with exertion, No Wheezing, No Hemoptysis, No Pleuritic Pain, No Sputum Gastrointestinal: No Nausea, No Vomiting, No Abdominal Pain, No Diarrhea, No Constipation, No Melena, No Hematochezia Genitourinary: No Dysuria, No Frequency, No Incontinence, No Hematuria, No Retention Musculoskeletal: Improving of the pain on the left foot and leg 3/10, edema. erythema and warmth. No other, No neck pain, No shoulder pain, No arm pain, No back pain, No hand pain. Skin: right leg petcheiaes over ankle improving. No Rash, No Lesions, No Jaundice, No Bruising, No Other. Wound on the left foot dorsum. Coded Allergies: NO KNOWN ALLERGIES (Unverified , 05/13/25) Consults/Reason for consult Podiatry consult: Left foot cellulitis and diabetic foot. Operations or Procedures PROCEDURE(s): CXR1 - CHEST XRAY 1 VIEW REASON: Suspected Sepsis ORDER NUMBER(s): [id number], ACCESSION NUMBER(s): [id number] CHEST RADIOGRAPH Indication: Suspected Sepsis Technique: Single frontal view of the chest was obtained Comparison: None FINDINGS: Lines and Tubes: None Lungs: Linear atelectasis or scarring in the right mid lung field. Pleura: No effusion. No pneumothorax. Cardiomediastinal contours: Unremarkable Bones: No acute osseous abnormality. IMPRESSION: 1. No acute cardiopulmonary disease. DURE(s): BLEAD - BiLat Low Ext Art Duplex REASON: r/o ischemia, PAD ORDER NUMBER(s): [id number], ACCESSION NUMBER(s): [id number] BILATERAL LOWER EXTREMITY ARTERIAL DUPLEX ULTRASOUND STUDY: REASON FOR EXAM: r/o ischemia, PAD. Left lower extremity wound x1 week. TECHNIQUE: The full lengths of the arterial segments were evaluated with color- flow Doppler ultrasound. Suspected abnormalities were evaluated with lopez scale ultrasound. Patient Support Tech spectral Doppler waveforms, with velocity measurements were obtained. Spectral waveforms with velocity measurements were obtained 2 to 4 cm central to any areas of significant stenosis. Common femoral, superficial femoral, popliteal, posterior tibial, anterior tibial, and dorsal pedal arteries were evaluated. FINDINGS: Right: There is diffuse atherosclerotic plaque throughout the right lower extremity. The common femoral artery waveform is multiphasic with a brisk upstroke. The superficial femoral and popliteal arteries are patent with multiphasic waveforms. There is monophasic flow in the posterior tibial artery. There is multi phasic flow in the anterior tibial and dorsal pedal arteries. Left: There is diffuse atherosclerotic plaque throughout the left lower extremity. The common femoral artery waveform is multiphasic with a brisk upstroke. The superficial femoral and popliteal arteries are patent with multiphasic waveforms. There is monophasic flow in the posterior tibial, anterior tibial, and dorsal pedal arteries. Incidental note is made of a 3.1 x 0.8 cm morphologically normal lymph node in the left groin, likely reactive. IMPRESSION: Diffuse atherosclerotic disease. No evidence of hemodynamically significant focal stenosis or occlusion. EDURE(s): LLDVT - LT Lower DVT REASON: reddness, swelling ORDER NUMBER(s): [id number], ACCESSION NUMBER(s): [id number] Procedure: LT Lower DVT Study Date and Requested Time: 05/13/2025 07:25 PM History: reddness, swelling Comparison: None Technique: Multiple high resolution lpoez-scale images with and without compression obtained of the left lower extremity veins, including the common femoral vein, deep femoral vein, proximal mid and distal superficial femoral vein, and popliteal vein. Additional limited images of the greater saphenous vein also obtained. Augmentation performed as indicated. Color and spectral doppler flow images obtained as indicated. Findings: No visible intraluminal venous thrombus. No evidence of incompressibility or abnormal color or spectral Doppler flow visualized in the left lower extremity veins including, the common femoral vein, deep femoral vein, proximal mid and distal superficial femoral vein, and popliteal vein. Greater saphenous vein grossly unremarkable. Impression: No sonographic evidence of left lower extremity deep venous thrombosis. EDURE(s): LFTCT - CT L FOOT WO CONTRAST REASON: Foot infection, ? necrotizing fasciitis ORDER NUMBER(s): [id number], ACCESSION NUMBER(s): [id number] EXAMINATION: CT CT L FOOT WO CONTRAST INDICATION: Foot infection, necrotizing fasciitis COMPARISON: None TECHNIQUE: CT of the rightleft foot was performed without contrast. Volume transverse images were obtained reconstructed in multiple planes using bone and soft tissue algorithms. CTDIvol: 8 mGy. DLP: 174 mGy cm. FINDINGS: Significant soft tissue thickening along the dorsal midfoot and forefoot. No obvious fluid collection, evidence of soft tissue gas or edema along the deep aspect of intrinsic foot muscles. No visualized ulcer. Dense vascular calcifications. No evidence of acute fracture , periostitis or osseous erosion. Joints appear normally aligned with mild osteoarthrosis of the forefoot. IMPRESSION: Extensive dorsal soft tissue thickening throughout the midfoot and forefoot. No obvious fluid collection or deep space infection, although CT is neither sensitive nor specific. EDURE(s): LFTMR - MRI L FOOT WO CONTRAST REASON: r/o foot osteomyelitis ORDER NUMBER(s): [id number], ACCESSION NUMBER(s): [id number] CLINICAL INDICATION: r/o foot osteomyelitis COMPARISON: CT CT L FOOT WO CONTRAST on DOS: 05/13/25. TECHNIQUE: Multiplanar, multisequence MRI of the left foot was performed without intravenous contrast. Contrast: None. INTERPRETATION: Bones: No evidence of acute fracture. There is no marrow replacing lesion. Joints: There is mild 1st MTP arthrosis. Mild midfoot arthrosis noted. No significant joint effusions. Soft tissues: There is marked subcutaneous edema in the dorsal forefoot especially in 1st and 2nd webspace, where there appears to be fluid in these locations. There is edema in the intrinsic muscles of the foot which may reflect myositis or denervation. IMPRESSION: 1. Diffuse soft tissue edema in the forefoot especially in between the 1st and 2nd webspace where there is fluid. Findings are concerning for cellulitis with the presence of abscess not excluded. 2. No MR evidence of osteomyelitis in the left foot. T I&D Operative Report - 2 Report Details Date: 05/14/25 Preop Diagnosis: 1. Left foot necrotizing fasciitis 2. Left foot cellulitis 3. Left foot abscess 4. Left foot diabetic infection Postop Diagnosis: Same as preop Surgeon: Erik Carreno MD Anesthesiologist: None Anesthesia: Local Consent: The patient was informed of the risks and benefits of the procedure. These include but are not limited to complications of anesthesia, postoperative infection, incomplete relief of symptoms, recurrence of symptoms, damage to blood vessels, nerves and tendons, deep venous thrombosis, pulmonary embolism and possible need for repeat surgery in the future. Complications: None Estimated Blood Loss: Minimal Fluids: See anesthesia Findings: Consistent with diagnosis Indications for Surgery: Worsening foot wound Name of Procedure Performed 1. Left foot I&D (49207) Procedure Details Procedure Details: PRE-PROCEDURE INFORMATION: In the pre-op holding area, the extremity to be operated on was clearly marked and the patient verified correct laterality of the marking. The patient was transferred to the OR table and placed in a supine position. A timeout was performed in which identification of the correct patient, procedure, location, and materials was done. The left foot and leg were prepped and draped in normal sterile fashion. DESCRIPTION OF PROCEDURE: Attention was directed to the left where area of fluctuance was noted. An incision was made over this area and was deepened through blunt dissection. The incision was deepened to the level of abscess and bone. Care was taken to the dissection to avoid any neurovascular and tendinous structures. The incision was deepened to the bone, and the abscess appeared to be purulent fluid consistent with pus. The cortices of the bone was then removed with rongeur an all necrotic tissue. After the abscess was drained, the area was irrigated with 3 L normal saline using cysto tubing. Deep cultures were then obtained from the wound. The area was then inspected and any areas of tracking, especially along the tendons were also drained. The wound was packed with Betadine-soaked gauze and we will need to be closed at a later date. POSTOPERATIVE INFORMATION: The patient tolerated the above noted procedure and anesthesia well and was transferred to the PACU with vital signs stable, and vascular status intact with capillary refill intact to all digits. Patient will need multiple I and D's to be able to salvage the foot. Continue IV antibiotics. Deep cultures were taken. Condition Good Disposition 2 Still a Patient Visit Coding Podiatry Date of Service if different f: May 14, 2025 Billing Provider: ERIK CARRENO DPM Podiatry Common Visit Codes: PROCEDURE ONLY SECOND I&D Operative Report - 2 Report Details Date: 05/17/25 Preop Diagnosis: 1. Left foot necrotizing fasciitis 2. Left foot cellulitis 3. Left foot abscess 4. Left foot diabetic infection Postop Diagnosis: Same as preop Surgeon: Erik Carreno MD Anesthesiologist: None Anesthesia: Local Consent: The patient was informed of the risks and benefits of the procedure. These include but are not limited to complications of anesthesia, postoperative infection, incomplete relief of symptoms, recurrence of symptoms, damage to blood vessels, nerves and tendons, deep venous thrombosis, pulmonary embolism and possible need for repeat surgery in the future. Complications: None Estimated Blood Loss: Minimal Fluids: See anesthesia Findings: Consistent with the diagnosis Indications for Surgery: Worsening foot wound Name of Procedure Performed 1. Left foot I&D ([id number]) Procedure Details Procedure Details: PRE-PROCEDURE INFORMATION: In the pre-op holding area, the extremity to be operated on was clearly marked and the patient verified correct laterality of the marking. The patient was transferred to the OR table and placed in a supine position. A timeout was performed in which identification of the correct patient, procedure, location, and materials was done. The left foot and leg were prepped and draped in normal sterile fashion. DESCRIPTION OF PROCEDURE: Attention was directed to the left foot where previous incision was made. An incision was made over this area and was deepened through blunt dissection. The incision was deepened to the level of abscess and bone. Care was taken to the dissection to avoid any neurovascular and tendinous structures. The incision was deepened to the bone, and the abscess appeared to be purulent fluid consistent with pus. The cortices of the bone was then removed with rongeur an all necrotic tissue. After the abscess was drained, the area was irrigated with 3 L normal saline using cysto tubing. The area was then inspected and any areas of tracking, especially along the tendons were also drained. The wound was packed with Betadine-soaked gauze and we will need to be closed at a later date. POSTOPERATIVE INFORMATION: The patient tolerated the above noted procedure and anesthesia well and was transferred to the PACU with vital signs stable, and vascular status intact with capillary refill intact to all digits. Patient will need multiple I and D's to be able to salvage the foot. Will need 6 weeks of IV antibiotics. Will need wound vac in the future. Will bring him back on Saturday. Condition Good Disposition 2 Still a Patient Visit Coding Podiatry Date of Service if different f: May 17, 2025 Billing Provider: ERIK CARRENO DPM Podiatry Common Visit Codes: PROCEDURE ONLY ERIK CARRENO DPM THIRD I&D Operative Report - 2 Report Details Date: 05/19/25 Preop Diagnosis: 1. Left foot necrotizing fasciitis 2. Left foot cellulitis 3. Left foot abscess 4. Left foot diabetic infection Postop Diagnosis: Same as preop Surgeon: Erik Carreno MD Anesthesiologist: See anesthesia Anesthesia: Mac Consent: The patient was informed of the risks and benefits of the procedure. These include but are not limited to complications of anesthesia, postoperative infection, incomplete relief of symptoms, recurrence of symptoms, damage to blood vessels, nerves and tendons, deep venous thrombosis, pulmonary embolism and possible need for repeat surgery in the future. Complications: None Estimated Blood Loss: Minimal Fluids: See anesthesia Findings: Consistent with the diagnosis Indications for Surgery: Worsening foot wound Name of Procedure Performed 1. Left foot I&D ([id number]) Procedure Details Procedure Details: PRE-PROCEDURE INFORMATION: In the pre-op holding area, the extremity to be operated on was clearly marked and the patient verified correct laterality of the marking. The patient was transferred to the OR table and placed in a supine position. A timeout was performed in which identification of the correct patient, procedure, location, and materials was done. The left foot and leg were prepped and draped in normal sterile fashion. DESCRIPTION OF PROCEDURE: Attention was directed to the left foot where previous incision was made. An incision was made over this area and was deepened through blunt dissection. The incision was deepened to the level of abscess and bone. Care was taken to the dissection to avoid any neurovascular and tendinous structures. The incision was deepened to the bone, and the abscess appeared to be purulent fluid consistent with pus. The cortices of the bone was then removed with rongeur an all necrotic tissue. After the abscess was drained, the area was irrigated with 3 L normal saline using cysto tubing. The area was then inspected and any areas of tracking, especially along the tendons were also drained. The wound was packed with Betadine-soaked gauze. POSTOPERATIVE INFORMATION: The patient tolerated the above noted procedure and anesthesia well and was transferred to the PACU with vital signs stable, and vascular status intact with capillary refill intact to all digits. Discharge home with PO abx. WBAT in post op shoe. Recommend wound vac once insurance approved. Condition Good Disposition 2 Still a Patient Visit Coding Podiatry Date of Service if different f: May 19, 2025 Billing Provider: ERIK CARRENO DPM Podiatry Common Visit Codes: PROCEDURE ONLY ERIK CARRENO DPMNov 2024 13:27 Condition at Discharge: Good Final Diagnosis/Problems List #Sepsis due to acute diabetic left foot cellulitis associated with uncontrolled type 2 DM. #Acute Osteomyelitis was ruled out #Acute Left foot abscess #Acute Left foot narcotizing facitis. #Chronic Type 2 diabetes mellitus with hyperglycemia, uncontrolled #Chronic Hypertensive heart disease with systolic/diastolic failure #Acute DVT, ruled out. #Acute Hypokalemia Discharge Disposition: Home with Health Services SNF Discharge Will this Physician continue t: No Discharge Instruct/Medications Diet: Consistent carbohydrate, Cardiac 2g Na,low cholest Activity: No Restrictions, As Tolerated Follow Up/Referral: F/U with discharge clinic in [address] Barbour, Saturday PM clinic F/U with Dr. Carreno in 1 week Medications: Cefepime 1gr IV BID for 3 week (through Midline, and NS flush) Tylenol 500mg po q8hr prn for pain Continue with home medication as below: Scheduled Atorvastatin Calcium (Atorvastatin Calcium), 1 TAB PO DAILY Insulin Glargine (Lantus Solostar), 20 UNIT SC DAILY Losartan Potassium (Losartan Potassium), 1 TAB PO DAILY Metformin Hydrochloride (Metformin Hcl Er), 1 TAB PO BID Discharge Statement: "Patient was advised to return to the ER or call 911 if any headaches, dizziness, shortness of breath, chest pain, abdominal pain, bleeding, fevers, or worsening of medical condition. Patient was counseled about treatment plan, medications, possible side effects, patientverbalized understanding. All questions were answered to the best of my ability. This discharge took greater then 30 minutes in planning, reviewing documentation, counseling the patient, and discussing with other team members." ASSESSMENT ASSESSMENT Assessment #Sepsis due to acute diabetic left foot cellulitis associated with uncontrolled type 2 DM. #Acute Osteomyelitis was ruled out #Acute Left foot abscess #Acute Left foot narcotizing facitis. #Chronic Type 2 diabetes mellitus with hyperglycemia, uncontrolled #Chronic Hypertensive heart disease with systolic/diastolic failure #Acute DVT, ruled out. #Acute Hypokalemia Date of Service: May 21, 2025 Billing Provider: KATHRIN BOLDEN MD Common Visit Codes: [id number]/[id number] DISCH DAY >30min RUBY EDWARD RESIDENT May 21, 2025 16:46
[2025-05-21 21:00] VITALS: BP 120/63; PULSE 84; RESP 17; TEMP 97.7; O2SAT 96
[2025-05-22] VITALS (7 sets, daily range): BP systolic 107–136; BP diastolic 67–93; PULSE 68–95; RESP 14–19; TEMP 96.6–98.4; O2SAT 87–97
--- NOTE | 2025-05-22 12:07 | DVHPN2 ---
Subjective Seen and examined at bedside, I spoke with the Wound care nurse, we will apply a wound vac. Patient will need Cefepime and Vanco IV at home. I spoke with the patient at length, patient agrees to pay out of pocket to cover medications. I advised the patient he must followup with podiatry clinic and DC clinic immediatley upon discharge for wound care, failure to do so may result in amputation or sepsis. Patient verbalized understanding and agrees to followup upon discharge. Patient reports he may see the wound care doctor at [facility] as outpatient. Changes from previous H/P or p: No Changes Objective Vitals Vital Signs Date Time Temp Pulse Resp B/P (MAP) Pulse Ox O2 Delivery O2 Flow Rate FiO2 05/22/25 11: 107/73 05/22/25 10:40 91 17 05/22/25 08:32 98.1 97 98.1 05/22/25 08:00 Room Air* 0 21 Intake/Output Intake and Output 05/22/25 07:00 Intake Total 1550 ml Balance 1550 ml Intake Oral 1350 ml IV Total 200 ml # Voids 6 # Bowel Movements 3 Exam Gen: in bed NAD Cvs: N s1/S2 Resp: BLAE Abd: Soft, Nt Ruling Technician: AAO x 4 Ext: Left foot dressing CDI Medications Current Medications Medications Dose Ordered Sig/[place] Route Start Time Stop Time Status Last Admin Dose Admin Sodium Chloride 10 ml Q8HR IV 05/14/25 06:00 05/22/25 06:07 10 ML Acetaminophen/ Hydrocodone Bitart 1 tab Q4HP PRN PO 05/14/25 00:45 05/20/25 00:00 1 TAB Enoxaparin Sodium 40 mg DAILY SC 05/14/25 10:00 05/22/25 11:38 40 MG Losartan Potassium 25 mg DAILY PO 05/14/25 10:00 05/22/25 11:31 25 MG Hydromorphone HCl 0.5 mg Q4HPRN PRN IV 05/14/25 00:45 05/22/25 10:10 0.5 MG Diagnostic Test (Pha) 1 strip Q6HR 05/14/25 06:00 05/22/25 06:07 1 STRIP Insulin Human Regular Q6HR SC 05/14/25 06:00 05/22/25 00:45 6 UNITS Dextrose 50 ml UD PRN IV 05/14/25 00:45 Atorvastatin Calcium 80 mg HS PO 05/14/25 22:00 05/21/25 22:10 80 MG Cefepime HCl 50 ml @ 12.5 mls/hr Q8H IV 05/15/25 19:00 05/22/25 11:40 12.5 MLS/HR Insulin Glargine 20 units DAILY@1000 SC 05/19/25 10:00 05/22/25 11:35 20 UNITS Laboratory Results Laboratory Tests 05/19/25 05:28 Urinalysis Test 05/14/25 12:09 Urine Color Light-yellow (Yellow) Urine Clarity Clear (Clear) Urine pH 6.0 (5.0-9.0) Urine Specific [place] 1.016 (1.001-1.035) Urine Protein Trace (Negative) H Urine Ketones 1+ (Negative) H Urine Blood Negative /uL (Negative) Urine Nitrite Negative (Negative) Urine Bilirubin Negative (Negative) Urine Urobilinogen 2 mg/dL (Negative) H Urine Leukocyte Esterase Negative /uL (Negative) Urine RBC 1 /hpf (0 - 3) Urine Microscopic WBC < 1 /HPF (0-3) Urine Squamous Epithelial Cells None seen /hpf (<5) Urine Bacteria None seen /hpf (None Seen) Urine Glucose 4+ mg/dL (Normal) H Microbiology Microbiology Date/Time Source Procedure Growth Status 05/14/25 12:15 Foot Left Gram Stain - Final Complete 05/14/25 12:15 Foot Left Anaerobic Culture - Final Complete 05/14/25 12:15 Aerobic Culture - Final Acinetobacter baumannii Complete 05/13/25 19:59 Blood Blood Culture - Final NO GROWTH AFTER 5 DAYS OF INCUBATION. Complete Assessment/Plan Assessment/Plan #Sepsis secondary to acute diabetic left foot acute cellulitis #Acute Osteomyelitis was ruled out #Acute Left foot abscess #Acute Left foot narcotizing facitis. MRI left foot: no osteomyelitis. Wound culture: Acinetobacter baumannii and Group B Strep: sensitive to cefepime Podiatry consult: performed I&D on 05/14/25 and 05/17/25. 3rd I&D performed on 05/19/25 Cefepime 1GM/50ML IV q8h + Vanco IV (Pharmacy to monitor levels) Pain management with [place] 1 TAB PO q4h and Dilaudid 0.5 MG IV q4h prn #Type 2 diabetes mellitus with hyperglycemia, uncontrolled HbA1: 12.4% Moderate Insulin SS SC q6h Counseled on tight glycemic control #Hypertensive heart disease with chronic systolic/diastolic failure Losartan 25 MG PO daily Plan discussed with: Patient My Orders Orders - KATHRIN BOLDEN MD Procedure Category Date Status Time Wound Vac PARUL 05/22/25 In Process 11:50 * Want Ad Receiver CONS 05/22/25 Transmitted Consult 11:58 Date of Service: May 22, 2025 Billing Provider: KATHRIN BOLDEN MD Common Visit Codes: [id number] INP/OBS CARE(HIGH) KATHRIN BOLDEN MD May 22, 2025 12:07
[2025-05-22] MEDS ORDERED: VANCOMYCIN PER PHARMACY 0 MG IV SCH (12:15)
[2025-05-22] MEDS: VANCOMYCIN 1GM/250ML KIT 250 ML IV SCH (16:00)
[2025-05-22] MEDS ORDERED: VANCOMYCIN 1GM/250ML KIT 500 ML IV ONE (16:28)
[2025-05-23 01:00] VITALS: BP 136/79; PULSE 92; RESP 18; TEMP 100.7; O2SAT 95
[2025-05-23 05:00] VITALS: BP 115/70; PULSE 84; RESP 14; TEMP 99.2; O2SAT 96
[2025-05-23] MEDS: ACETAMINOPHEN 325 MG TAB PO PRN (05:15)
[2025-05-23 05:33] LABS: Chloride 99 mmol/L (98-107); Potassium 4.8 mmol/L (3.5-5.1)
[2025-05-23 05:34] LABS: Anion Gap 9 (5-15); Carbon Dioxide 26 mmol/L (20-31)
[2025-05-23 05:40] LABS: BUN/Creatinine Ratio 22.0 (10.0-20.0); Blood Urea Nitrogen 18 mg/dL (9-23); Magnesium 1.9 mg/dL (1.6-2.6)
[2025-05-23 06:17] LABS: Calcium 8.5 mg/dL (8.7-10.4); Glucose 186 mg/dL (74-106); Sodium 134 mmol/L (136-145)
[2025-05-23 08:00] VITALS: PULSE 75
[2025-05-23 09:00] VITALS: BP 109/61; PULSE 75; RESP 17; TEMP 97.4; O2SAT 97
[2025-05-23 10:45] VITALS: BP 109/61; TEMP 36.3
[2025-05-23] MEDS ORDERED: TRAM-626 PO (11:23)
[2025-05-23] MEDS ORDERED: VANCOMYCIN 1.5GM/250ML 250 ML IV SCH (12:00)
[2025-05-23] MEDS: HYDROcodone-ACET 5/325MG TAB PO ONE (12:30)
[2025-05-23 13:00] VITALS: BP 115/69; PULSE 69; RESP 17; TEMP 97.6; O2SAT 98
[2025-05-23] MEDS ORDERED: DOXY100C79 PO (13:10)
--- NOTE | 2025-05-23 13:14 | DVHPNRES ---
Progress Note Date Seen: May 23, 2025 Resident Creating Document: RUBY EDWARD RESIDENT Has the PT tested + for MRSA If YES, has PT been informed?: No Medical Necessity Reason Pt with a Central, PICC or Fol: No Subjective Review of Systems Mr. Steve Canas, is a 64-year-old male, with past medical history of recently diagnosed HTN and DM type 2. The patient presented to [facility] ED with a chief complaint of 9 days of progressively worsening wound localized on the dorsum of left foot, associated with 10/10 burning/stabbing like pain, that irradiates up toward the left leg that worsen with walking and does not has alleviating factors. The left foot wound is associated with edema, yellowish foul smell discharge, erythema and warmth that extends to up to the middle part of the left leg. The patient reports 3 days prior the visit to the ED he start noticing a black eschar over the wound, and he had subjective fever, chills and malaise, this prompted his visit to the ED. On further questioning the patient reports he was newly diagnosed with DM2 and he is not taking any medication. 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 He denies recent trauma to the area, insect bites or new footwear. No prior similar episodes. On evaluation in the ED, patient is febrile, tachycardia, and BP is148/82 mmHg. Initial labs show WBC 12.0, serum glucose 289 and ALP 158. Left foot CT shows Extensive dorsal soft tissue thickening throughout the midfoot and forefoot. The patient was started on IV antibiotics and Insulin. Patient was admitted for further evaluation and management. Past medical history as above. Past Surgical History: None Family History: DM2 Social history: Smoke: No, ALCOHOL: occasional. Drugs: None. Lives: with Family Hospital course: On 05/14/25 the patient was evaluated and examined at bedside. The VS, labs and chart was reviewed. The patient reports he has chills, his left foot pain is better after analgesia 7/10. Bilateral artery studies showed: Diffuse atherosclerotic disease. No evidence of hemodynamically significant focal stenosis or occlusion. Bilateral leg doppler is negative for DVT. CT of the left leg showed: Extensive dorsal soft tissue thickening throughout the midfoot and forefoot. No obvious fluid collection or deep space infection, although CT is neither sensitive nor specific. MRI of the left foot showed:Diffuse soft tissue edema in the forefoot especially in between the 1st and 2nd webspace where there is fluid. Findings are concerning for cellulitis with the presence of abscess not excluded. No MR evidence of osteomyelitis in the left foot. Wound and blood cultures were ordered. The patient is receiving IV antibiotics: ceftriaxone and vancomycin. Podiatry and wound consult were placed. We will continue following this patient's progress. On 05/15/25 the patient was evaluated and examined at bedside. The VS, labs and chart was reviewed. The patient reports he has chills and fever 100F during the night. ERS and CRP are elevated. The patient reports his left foot pain is better after analgesia 12/22. Podiatry saw the patient on 05/14/25, and performed I&D with wound cultures, and informed that the patient might need more I&D to preserve the limb. The patient is receiving IV antibiotics: cefepime and vancomycin. Cultures samples were received by the laboratory/microbiology. We will continue following this patient's progress. On 05/16/25, patient was seen and evaluated at bedside. Vitals signs, labs and chart were reviewed. The patient mentions he has mild pain in his left leg. Preliminary wound culture grew Many growth: Beta- Hemolytic Group B Streptococcus and Few growth:Gram Negative Rods. We will continue with the same antibiotics and wait for sensitivity report and podiatry recommendations. On 05/17/25 the patient was evaluated and examined at bedside.The VS, labs and chart was reviewed. The patient reports feeling better, no fever during the night, his pain has improved to 4/10. Podiatry is on board, I&D will be performed today. The patient is receiving IV antibiotics: ceftriaxone and vancomycin. Cultures samples were received by the laboratory/microbiology. The wound culture showed: growth of Acinetobacter baumannii.We will continue following this patient's progress. On 05/18/25 the patient was evaluated and examined at bedside. The VS, labs and chart was reviewed. The patient reports feeling better, no fever last night. His pain has improved to 4/10. Podiatry is on board, 3erd I&D will be performed tomorrow 05/19/25. The patient is receiving IV antibiotics: cefepime and vancomycin. Cultures samples were received by the laboratory/microbiology, the wound culture showed: growth of Acinetobacter baumannii, that is sensitive to cefepime. We will continue following this patient's progress. On 05/19/25 the patient was evaluated and examined at bedside. The VS, labs and chart was reviewed. The patient reports feeling better, no fever during the night, his pain is well controlled with analgesia 3/10, he does not has new complaints. The patient continues receiving IV antibiotics. Podiatry is on board, a 3erd I&D was performed today. We will continue following this patient's progress. On 05/20/25 the patient was evaluated and examined at bedside. The VS, labs and chart were reviewed. The patient is on his second day post 3rd I&D. The patient reports feeling better, afebril, his pain is well controlled with analgesia 3/10, he does not has new complaints. The patient continues receiving IV antibiotic: Cefepime IV. Podiatry is on board, they recommend wound vac opon discharge, a new social service consult was placed and a acute care nursing assistant consult was placed to arranged wound vac, antibiotics and home health for wound care. The patient wants to explore his options of insurance. We will continue following this patient's progress. On 05/22/25: the patient was seen and examined at bedside, I spoke with the Wound care nurse, we will apply a wound vac. Patient will need Cefepime and Vanco IV at home. I spoke with the patient at length, patient agrees to pay out of pocket to cover medications. I advised the patient he must followup with podiatry clinic and DC clinic immediately upon discharge for wound care, failure to do so may result in amputation or sepsis. Patient verbalized understanding and agrees to followup upon discharge. Patient reports he may see the wound care doctor at [facility] as outpatient. On 05/23/25: the patient was seen and examined at bedside. VS, labs and chart were reviewed. The patient reports feeling well today, no new complaints. The patient is waiting for the home-health arrangements for the IV antibiotics (Cefepime), wound care. Per cultures the patient will be going home with Cefepime IV (with a Midline) and Doxycycline 100mg po bid x 3 weeks (to cover group B streptococcus.) The patient will continue care with D/C clinic on Saturday, PM clinic. The patient will follow up with Dr. Carreno in a week. We will continue with the discharge. Objective vital signs Vital Sign Date Time Temp Pulse Resp B/P (MAP) Pulse Ox O2 Delivery O2 Flow Rate FiO2 05/23/25 10:45 36.3 05/23/25 09:05 109/61 05/23/25 09:00 75 17 97 05/22/25 20:00 Room Air* 0 21 Total Intake and Output 05/22/25 05/22/25 05/23/25 15:00 23:00 07:00 Intake Total 650 ml 550 ml Balance 650 ml 550 ml medications Current Medications Medications Dose Ordered Sig/[place] Route Start Time Stop Time Status Last Admin Dose Admin Sodium Chloride 10 ml Q8HR IV 05/14/25 06:00 05/23/25 05:15 10 ML Enoxaparin Sodium 40 mg DAILY SC 05/14/25 10:00 05/23/25 09:06 40 MG Losartan Potassium 25 mg DAILY PO 05/14/25 10:00 05/23/25 09:05 25 MG Diagnostic Test (Pha) 1 strip Q6HR 05/14/25 06:00 05/23/25 12:00 1 STRIP Insulin Human Regular Q6HR SC 05/14/25 06:00 05/23/25 12:27 9 UNITS Dextrose 50 ml UD PRN IV 05/14/25 00:45 Atorvastatin Calcium 80 mg HS PO 05/14/25 22:00 05/22/25 21:01 80 MG Cefepime HCl 50 ml @ 12.5 mls/hr Q8H IV 05/15/25 19:00 05/23/25 12:10 12.5 MLS/HR Insulin Glargine 20 units DAILY@1000 SC 05/19/25 10:00 05/23/25 09:15 20 UNITS Vancomycin HCl 0 ml @ 0 mls/hr PER PHARMACY IV 05/22/25 12:15 Acetaminophen 650 mg Q4HP PRN PO 05/23/25 04:45 05/23/25 05:15 650 MG Doxycycline Monohydrate 100 mg Q12HR PO 05/23/25 22:00 Examination General Appearance: Cooperative. Well developed. Not in acute distress. Head Exam: Normal inspection Neck Exam: Normal inspection. Non-tender. Normal alignment Pulmonary/Respiratory: Chest non-tender. Clear bilateral breath sounds, no crackles, no wheezing. Cardiovascular/Chest: Regular rate and rhythm. No murmurs. No JVD. Peripheral Pulses: 2+ Radial (R). 2+ Radial (L). 2+ Pedal (R). 2+ Pedal (L) Abdominal Exam: Normal bowel sounds. Soft. normal abdomen, no visible veins, Nontender. No hepatospenomegaly. No masses Lower extremities: Left leg: mild erythema, erythema on the left leg has improved with mild edema and warmth. The left foot is covered by clean dressing. The wound was uncovered: The base of the wound is clean, with glanuation tissue on the base. The Sensation is preserved, peripheral pulses are present, capillary refill<2 sec on the toes of the left foot. The patient can move the toes. Right lower extremity: right ankle multiple petechiae have resolved. No edema or erythema, pulses present, capillary refill <2 sec Neuro/Mental Status: A&O x3. Coherent. Thoughts/Psych: Normal thought pattern. Appropriate mood and affect. laboratory and microbiology Laboratory Tests 05/23/25 04:19 05/19/25 05:28 Test 05/23/25 04:19 Range/Units Serum Glucose 186 H 74-106 mg/dL Microbiology Date/Time Source Procedure Growth Status 05/14/25 12:15 Foot Left Gram Stain - Final Complete 05/14/25 12:15 Foot Left Anaerobic Culture - Final Complete 05/14/25 12:15 Aerobic Culture - Final Acinetobacter baumannii Complete 05/13/25 19:59 Blood Blood Culture - Final NO GROWTH AFTER 5 DAYS OF INCUBATION. Complete Problem List/Assessment/Plan Problem List/Assessment/Plan #Sepsis secondary to acute diabetic left foot acute cellulitis #Acute Osteomyelitis was ruled out #Acute Left foot abscess #Acute Left foot narcotizing facitis. MRI left foot: no osteomyelitis. Wound culture: Acinetobacter baumannii and Group B Strep: sensitive to cefepime Wound consult: ongoing. Podiatry consult: performed I&D on 05/14/25 and 05/17/25. 3rd I&D performed on 05/19/25 IV NS 1,000 MLS/HR Cefepime 1GM/50ML IV q8h D/C Vancomycin IV Start: Doxycycline 100mg po BID (grup B strep) Pain management with [place] 1 TAB PO q4h and Dilaudid 0.5 MG IV q4h prn #Type 2 diabetes mellitus with hyperglycemia, uncontrolled HbA1: 12.4% Moderate Insulin SS SC q6h Counseled on tight glycemic control #Hypertensive heart disease with systolic/diastolic failure Losartan 25 MG PO daily #Ruled out DVT Extremity venous sturdy: No sonographic evidence of left lower extremity deep venous thrombosis. Duplex Scan lower extremity artery: Diffuse atherosclerotic disease. No evidence of hemodynamically significant focal stenosis or occlusion. #Acute Hypokalemia K: 3.4 Replenish K: 4.4 05/19/25 Resolved: K: 4.8 on 05/23/25 DVT prophylaxis Diet: Cardiac diet and low carbohydrate diet Goals of care discussed with the patient for more than 35 minutes: Code Status: Full code PCP: No established, the patient will follow up with D/C clinic Case discussed with Dr. Steen Plan discussed with: Patient, Spouse My Orders My Orders Orders - RUBY EDWARD Procedure Category Date Status Time Acetaminophen Tablet PHA 05/23/25 In Process (Tylenol Tablet) 04:45 Discharge DISCHARGE 05/23/25 Transmitted 10:28 Doxycycline Tablet PHA 05/23/25 In Process (Vibramycin Tablet) 22:00 * Acquisition Manager CONS 05/23/25 Transmitted Consult 12:56 Dietary Evaluation Review Comments: 1) Initiate MVI @ 1 tb qd 2) Initiate vitamin C @ 500 mg bid and zinc sulfate @ 220 mg qd for 7 days 3) Continue 45g CCHO cardiac diet 4) Refer to outpatient RD/CDCES for diabetes education 5) Follow-up with podiatry 6) Continue to monitor I&O, labs, and skin integrity Expected Outcomes/Goals: 1) appetite and labs to improve 2) wound to improve 3) f/u in 3-5 days Date of Service: May 23, 2025 Billing Provider: KATHRIN STEEN MD Common Visit Codes: [id number] INP/OBS CARE(HIGH) RUBY EDWARD RESIDENT May 23, 2025 13:14
[2025-05-23] MEDS ORDERED: DOXYCYCLINE 100 MG TAB/CAP PO SCH (22:00)
== END 2025-05-23 17:25 | disposition home or self-care (01) | DRG 871 ==
LOC: ER 18:05 → OVERFLOW 23:54 → TELE-WESTW 05-14 02:37 → WEST WING 05-19 08:35
PROVIDERS: ADMIT Internal Medicine; ATTEND Internal Medicine
PROC: 0Y9N0ZZ Drainage of Left Foot, Open Approach (ICD-10-PCS; principal; 2025-05-14 12:17)
PROC: 0Y9N0ZZ Drainage of Left Foot, Open Approach (ICD-10-PCS; 2025-05-17)
PROC: 0Y9N0ZZ Drainage of Left Foot, Open Approach (ICD-10-PCS; 2025-05-19)
PROC: 05HC33Z Insertion of Infusion Device into Left Basilic Vein, Percutaneous Approach (ICD-10-PCS; 2025-05-20)
PROC: B54NZZA Ultrasonography of Left Upper Extremity Veins, Guidance (ICD-10-PCS; 2025-05-20)
DX: A41.9 Sepsis, unspecified organism (principal); M72.6 Necrotizing fasciitis; L02.612 Cutaneous abscess of left foot; L03.116 Cellulitis of left lower limb; E11.65 Type 2 diabetes mellitus with hyperglycemia; E11.621 Type 2 diabetes mellitus with foot ulcer; E87.6 Hypokalemia; L08.9 Local infection of the skin and subcutaneous tissue, unspecified; I11.0 Hypertensive heart disease with heart failure; I50.42 Chronic combined systolic (congestive) and diastolic (congestive) heart failure; Z79.899 Other long term (current) drug therapy; Z83.3 Family history of diabetes mellitus
CPT/HCPCS: 36415; 71045; 73700; 73718; 80048; 80053; 80076; 80202; 80307; 81001; 82962; 83036; 83605; 83735; 85025; 85610; 85652; 85730; 86141; 86850; 86900; 86901; 87040; 87070; 87075; 87077; 87186; 87205; 93925; 93971; 96365; 96375; G0378; J0131; J1815; J1885; J2003; J2250; J2405; J2543; J2704; J3490